=== PATIENT | male | born 1930 | race Caucasian/White ===

== ENCOUNTER 2016-10-07 11:27 | Emergency (ER) | payer MEDICARE, BC ==
[2016-10-07 12:09] VITALS: BP 115/73
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
--- NOTE | 2016-10-07 17:52 | CT ---
DATE OF SERVICE: 10/07/16 CLINICAL DATA: confusion UNENHANCED BRAIN CT: Multislice acquisition through the brain without IV contrast was performed. There is diffuse cerebral atrophy. There are periventricular lucencies bilaterally consistent with small vessel ischemic change. No masses or mass effect. No intracranial hemorrhage. No evidence of acute or subacute infarct. No significant changes from the prior exam. IMPRESSION: No acute intracranial abnormalities. [id number] [facility]
== END 2016-10-07 14:10 | disposition home or self-care (01) ==
LOC: LB.ED 11:27
DX: F01.51 Vascular dementia, unspecified severity, with behavioral disturbance (principal); I25.10 Atherosclerotic heart disease of native coronary artery without angina pectoris; I50.9 Heart failure, unspecified; E78.00 Pure hypercholesterolemia, unspecified; I25.2 Old myocardial infarction; E11.9 Type 2 diabetes mellitus without complications; E03.9 Hypothyroidism, unspecified; Z98.49 Cataract extraction status, unspecified eye; Z98.890 Other specified postprocedural states; Z79.4 Long term (current) use of insulin; Z79.899 Other long term (current) drug therapy; Z79.82 Long term (current) use of aspirin
CPT/HCPCS: 36415; 70450; 80053; 80162; 80177; 81001; 83036; 84443; 85025; 87086; 99283; 99285-25

== ENCOUNTER 2017-07-14 10:41 | Inpatient (IN) | payer MEDICARE, BC ==
[2017-07-14] MEDS ORDERED: Sodium Chloride 0.9% 1,000 ML IV SCH ×2 (12:00)
[2017-07-14] MEDS ORDERED: Insulin Aspart 100 Units/ML 3 ML Pen SUBCUT PRN (15:12)
--- NOTE | 2017-07-14 16:24 | EDM.PDOC ---
ED HPI GENERAL MEDICAL PROBLEM - General Chief Complaint: General Stated Complaint: FALL Time Seen by Provider: 07/14/17 10:41 Source of Information: Reports: Patient, EMS, Family History Limitations: Reports: No Limitations - History of Present Illness INITIAL COMMENTS - FREE TEXT/NARRATIVE: This is a 86yo M here for falling down and unable to get back up. His heard him fall and he was responsive but slow to respond. He denies any pain or discomfort and denies any shortness of breath, no chest pain, no lightheadedness or other concerns. felt that he may have had a low blood sugar as his glucose was 85 and she postponed his insulin until after he had eating but when EMS checked a finger stick it was 187. Patient alert but has dementia and states consistently that it is the year 2001. states that is his baseline. Onset: Sudden Improves with: Reports: None Worsens with: Reports: None Associated Symptoms: Reports: Syncope Generalized Pain Score (Numeric/FACES): 0 - Related Data Allergies Allergy/AdvReac Type Severity Reaction Status Date / Time No Known Allergies Allergy Verified 03/03/16 19:38 Home Meds: Home Meds Multivitamin [Multi-Vitamin Daily] 1 tab PO DAILY 08/10/14 [History] Ranitidine HCl 150 mg PO BEDTIME 08/10/14 [History] Levothyroxine 25 mcg PO ACBREAKFAST tablet 10/03/14 [Rx] Tamsulosin [Flomax] 0.4 mg PO PCBREAKFAST cap.er 10/03/14 [Rx] levETIRAcetam [Keppra] 750 mg PO BID tablet 10/03/14 [Rx] Cholecalciferol (Vitamin D3) [Vitamin D3] 2,000 unit PO DAILY cap 11/04/14 [Rx] Metoprolol Tartrate 25 mg PO BID #60 tablet 11/04/14 [Rx] Insulin Aspart [NovoLOG] 0 - 10 unit SUBCUT TIDAC PRN 12/10/14 [History] Aspirin [[place] Aspirin] 81 mg PO DAILY 10/07/16 [History] Digoxin 125 mcg PO DAILY 10/07/16 [History] Arformoterol [Brovana] 1 inh INH BID 07/14/17 [History] Budesonide [Pulmicort] 0.5 mg IH BID 07/14/17 [History] Furosemide 40 mg PO DAILY 07/14/17 [History] Ipratropium/Albuterol Sulfate [Iprat-Albut 0.5-3(2.5) mg/3 ml] 3 ml IH DAILY 05/19 [History] Potassium Chloride [Klor-Con 10] 0.5 tab PO DAILY 07/14/17 [History] Past Medical History HEENT History: Reports: Cataract, Hard of Hearing Cardiovascular History: Reports: Afib, CAD, Heart Failure, High Cholesterol, [place] Respiratory History: Reports: Pneumonia, Recurrent Gastrointestinal History: Reports: Other (See Below) Other Gastrointestinal History: Frequent bowel movements Genitourinary History: Reports: Acute Renal Failure, Renal Disease, UTI, Recurrent Musculoskeletal History: Reports: Back Pain, Chronic Neurological History: Reports: Seizure Other Neuro History: hx of 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 frequent skin cancers - Infectious Disease History Infectious Disease History: Reports: Chicken Pox - Past Surgical History HEENT Surgical History: Reports: Cataract Surgery GI Surgical History: Reports: Hernia Repair/Other Social & Family History - Family History Family Medical History: Noncontributory - Tobacco Use Smoking Status *Q: Never Smoker Second Hand Smoke Exposure: No - Caffeine Use Caffeine Use: Reports: None - Alcohol Use Days Per Week of Alcohol Use: 0 - Recreational Drug Use Recreational Drug Use: No - Living Situation & Occupation Living situation: Reports: Occupation: Retired ED ROS GENERAL - Review of Systems Review Of Systems: ROS reveals no pertinent complaints other than HPI. ED EXAM, GENERAL - Physical Exam Exam: See Below Exam Limited By: No Limitations General Appearance: Alert, WD/WN, No Apparent Distress Eye Exam: Bilateral Eye: EOMI, PERRL Ears: Normal External Exam Nose: Normal Inspection Throat/Mouth: Normal Inspection Head: Atraumatic, Normocephalic Neck: Normal Inspection Respiratory/Chest: No Respiratory Distress, Lungs Clear Cardiovascular: Normal Peripheral Pulses, Bradycardia Peripheral Pulses: 2+: Dorsalis Pedis (L), Dorsalis Pedis (R) GI/Abdominal: Normal Bowel Sounds Extremities: Normal Inspection Neurological: Alert, Memory Loss Recent Events Psychiatric: Normal Affect, Normal Mood Skin Exam: Warm, Dry, Intact Course - Vital Signs Last Recorded V/S: Last Vital Signs Temp 36.7 C 07/14/17 11:26 Pulse 32 L 07/14/17 11:26 Resp 12 07/14/17 11:26 BP 112/55 L 07/14/17 11:26 Pulse Ox 95 07/14/17 11:26 - Orders/Labs/Meds Orders: Active Orders 24 hr Category Date Time Status EKG Documentation Completion [RC] ASDIRECTED Care 07/14/17 11:01 Active Sodium Chloride 0.9% [Normal Saline] 1,000 ml Med 07/14/17 12:00 Active IV ASDIRECTED Sodium Chloride 0.9% [Normal Saline] 1,000 ml Med 07/14/17 12:00 Active IV ASDIRECTED Medication Orders Albuterol/Ipratropium (Duoneb 3.0-0.5 Mg/3 Ml) 3 ml INH DAILY [facility] Arformoterol Tartrate (Brovana) 15 mcg INH BID [facility] Aspirin (Halfprin) 81 mg PO DAILY [facility] Budesonide (Pulmicort) 0.5 mg INH BID [facility] Cholecalciferol (Vitamin D3) 2,000 unit PO DAILY [facility] Digoxin (Lanoxin) 125 mcg PO DAILY [facility] Furosemide (Lasix) 40 mg PO DAILY [facility] Sodium Chloride (Normal Saline) 1,000 mls @ 75 mls/hr IV ASDIRECTED [facility] Sodium Chloride (Normal Saline) 1,000 mls @ 999 mls/hr IV ASDIRECTED [facility] Last Admin: 07/14/17 11:29 Dose: 999 mls/hr Insulin Aspart (Novolog) 0 - 10 unit SUBCUT TIDAC PRN PRN Reason: Blood Glucose Levetiracetam (Keppra) 750 mg PO BID [facility] Levothyroxine Sodium (Levothyroxine) 25 mcg PO ACBREAKFAST [facility] Multivitamins/Minerals (Thera M Plus) 1 tab PO DAILY [facility] Potassium Chloride (Klor-Con 10) 10 meq PO DAILY [facility] Ranitidine HCl (Zantac) 150 mg PO BEDTIME [facility] Tamsulosin HCl (Flomax) 0.4 mg PO PCBREAKFAST [facility] Labs: Laboratory Tests 07/14/17 07/14/17 Range/Units 11:30 11:30 WBC 5.3 (4.0-11.0) K/uL RBC 3.79 L (4.50-6.50) M/uL Hgb 12.4 L (13.0-18.0) g/dL Hct 37.6 L (40.0-54.0) % MCV 99 H (76-96) fL MCH 32.7 H (27.0-32.0) pg MCHC 33.0 (31.0-35.0) g/dL RDW 13.4 (11.0-16.0) % Plt Count 173 (150-400) K/uL MPV 10.2 H (6.0-10.0) fL Neut % (Auto) 72.2 H (45.0-70.0) % Lymph % (Auto) 12.2 L (20.0-40.0) % Coffee % (Auto) 11.4 H (3.0-10.0) % Eos % (Auto) 3.4 (1.0-5.0) % Baso % (Auto) 0.8 H (0.0-0.5) % Neut # (Auto) 3.85 (2.00-7.50) K/uL Lymph # (Auto) 0.65 L (1.50-4.00) K/uL Coffee # (Auto) 0.61 (0.20-0.80) K/uL Eos # (Auto) 0.18 (0.04-0.40) K/uL Baso # (Auto) 0.04 (0.02-0.10) K/uL Sodium 142 (136-145) mmol/L Potassium 4.1 (3.5-5.1) mmol/L Chloride 103 (98-107) mmol/L Carbon Dioxide 36.7 H (21.0-32.0) mmol/L Anion Gap 6.4 (5.0-15.0) mmol/L BUN 30 H D (8-26) mg/dL Creatinine 2.30 H (0.70-1.30) mg/dL Est Cr Clr Drug Dosing 18.08 mL/min Estimated GFR (MDRD) 27 L (>60) MLS/MIN BUN/Creatinine Ratio 13.0 (6-25) Glucose 93 (74-100) mg/dL Calcium 8.5 (8.5-10.1) mg/dL Total Bilirubin 0.5 (0.0-1.0) mg/dL AST 17 (15-37) U/L ALT 15 (12-78) U/L Alkaline Phosphatase 89 (46-116) U/L Troponin I 0.030 (0.000-0.060) ng/mL B-Natriuretic Peptide 2205 H (0-450) pg/mL Total Protein 5.5 L (6.4-8.2) g/dL Albumin 2.5 L (3.4-5.0) g/dL Globulin 3.0 (2.2-4.2) g/dL Albumin/Globulin Ratio 0.8 (0.8-2.0) TSH, Ultra Sensitive 3.044 (0.358-3.740) uIU/mL Meds: Medications Generic Name Dose Route Start Last Admin Trade Name Freq PRN Reason Stop Dose Admin Albuterol/Ipratropium 3 ml 07/15/17 08:00 Duoneb 3.0-0.5 Mg/3 Ml INH DAILY [facility] Arformoterol Tartrate 15 mcg 07/14/17 20:00 Brovana INH BID [facility] Aspirin 81 mg 07/15/17 08:00 Halfprin PO DAILY [facility] Budesonide 0.5 mg 07/14/17 20:00 Pulmicort INH BID [facility] Cholecalciferol 2,000 unit 07/15/17 08:00 Vitamin D3 PO DAILY [facility] Digoxin 125 mcg 07/15/17 08:00 Lanoxin PO DAILY [facility] Furosemide 40 mg 07/15/17 08:00 Lasix PO DAILY [facility] Sodium Chloride 1,000 mls @ 75 mls/hr 07/14/17 12:00 Normal Saline IV ASDIRECTED [facility] Sodium Chloride 1,000 mls @ 999 mls/hr 07/14/17 12:00 07/14/17 11:29 Normal Saline IV 999 mls/hr ASDIRECTED [facility] Administration Insulin Aspart 0 - 10 unit 07/14/17 15:12 Novolog SUBCUT TIDAC PRN Blood Glucose Levetiracetam 750 mg 07/14/17 20:00 Keppra PO BID [facility] Levothyroxine Sodium 25 mcg 07/15/17 07:00 Levothyroxine PO ACBREAKFAST [facility] Multivitamins/Minerals 1 tab 07/15/17 08:00 Thera M Plus PO DAILY [facility] Potassium Chloride 10 meq 07/15/17 08:00 Klor-Con 10 PO DAILY [facility] Ranitidine HCl 150 mg 07/14/17 20:00 Zantac PO BEDTIME [facility] Tamsulosin HCl 0.4 mg 07/15/17 10:00 Flomax PO PCBREAKFAST [facility] Departure - Departure Time of Disposition: 12:00 Disposition: Admitted As Inpatient 67 Condition: Fair Clinical Impression: Bradycardia, Syncope and collapse Fall Qualifiers: Encounter type: initial encounter Qualified Code(s): W19.XXXA - Unspecified fall, initial encounter Anemia Qualifiers: Anemia type: unspecified type Qualified Code(s): D64.9 - Anemia, unspecified Chronic renal disease Qualifiers: Chronic kidney disease stage: stage 4 (severe) Qualified Code(s): N18.4 - Chronic kidney disease, stage 4 (severe) CHF (congestive heart failure) Qualifiers: Congestive heart failure type: unspecified Congestive heart failure chronicity : unspecified Qualified Code(s): I50.9 - Heart failure, unspecified - Discharge Information - Problem List Review Problem List Initiated/Reviewed/Updated: Yes - My Orders Last 24 Hours: My Active Orders 07/14/17 11:01 EKG Documentation Completion [RC] ASDIRECTED 07/14/17 12:00 Sodium Chloride 0.9% [Normal Saline] 1,000 ml IV ASDIRECTED Sodium Chloride 0.9% [Normal Saline] 1,000 ml IV ASDIRECTED - Assessment/Plan Last 24 Hours: My Active Orders 07/14/17 11:01 EKG Documentation Completion [RC] ASDIRECTED 07/14/17 12:00 Sodium Chloride 0.9% [Normal Saline] 1,000 ml IV ASDIRECTED Sodium Chloride 0.9% [Normal Saline] 1,000 ml IV ASDIRECTED Plan: Patient admitted for close monitoring. CHF- close monitoring and Echo to be done for f/u. CRF - gentle hydration and monitoring and follow up labs. Anemia - iron supplementation and management. Fall/Syncope - PT/OT evaluation and management. Bradycardia - hold Metoprolol Atrial fibrillation - monitor as we hold metoprolol for rate control. Deconditioning and generalized muscle weakness -- PT/OT eval.
[2017-07-14] MEDS ORDERED: LORazepam 2 MG/ML MDV ONE ×2 (20:37→23:12)
[2017-07-14] MEDS: levETIRAcetam 500 MG Tab PO SCH (20:45)
[2017-07-14] MEDS: Budesonide 0.5 MG/2 ML Neb Susp INH SCH (20:45)
[2017-07-14] MEDS: Arformoterol 15 MCG/2 ML Neb Soln INH SCH (20:45)
[2017-07-14] MEDS: LORazepam 2 MG/ML MDV IVPUSH PRN ×3 (20:50→23:20)
[2017-07-15] MEDS ORDERED: Non-Formulary Medication 1 Each (Multivitamin [Multi-Vitamin Daily] 1 TAB) PO SCH (08:00)
[2017-07-15] MEDS: Digoxin 125 MCG Tab PO SCH (08:14)
[2017-07-15] MEDS: Levothyroxine 25 MCG Tab PO SCH (08:14)
[2017-07-15] MEDS: Multivitamins with Iron/Calcium/Folic Acid/Minerals Tab PO SCH (08:14)
[2017-07-15] MEDS: Aspirin 81 MG Tab.EC PO SCH (08:14)
[2017-07-15] MEDS: Cholecalciferol (Vitamin D3) 2,000 Unit Cap PO SCH (08:14)
[2017-07-15] MEDS: Furosemide 40 MG Tab PO SCH (08:15)
[2017-07-15] MEDS: Potassium Chloride 10 MEQ Tab.ER PO SCH (08:15)
[2017-07-15] MEDS: levETIRAcetam 500 MG Tab PO SCH ×2 (08:15→19:57)
[2017-07-15] MEDS: Albuterol/Ipratropium 3.0-0.5 MG/3 ML Neb Soln INH SCH (08:16)
[2017-07-15] MEDS: Arformoterol 15 MCG/2 ML Neb Soln INH SCH ×2 (08:16→20:13)
[2017-07-15] MEDS: Budesonide 0.5 MG/2 ML Neb Susp INH SCH ×2 (08:17→20:05)
--- NOTE | 2017-07-15 10:40 | CR ---
DATE OF SERVICE: 07/14/17 CLINICAL DATA: unresponsive AP CHEST: The patient has taken a poor inspiration. Comparison is made to a prior exam dated 10/26/15. The heart size is within normal limits. The aorta is ectatic. There are mild atelectatic changes in both lower lungs. The lungs are otherwise clear. No pneumothorax. [id number] [facility]
[2017-07-15] MEDS: Tamsulosin 0.4 MG Cap.ER PO SCH (11:40)
[2017-07-15] MEDS: Sodium Chloride 0.45% 1,000 ML IV SCH (11:40)
--- NOTE | 2017-07-15 11:47 | PCM.PN ---
- General Info Date of Service: 07/15/17 Subjective Update: Patient is tired and arousable but sleepy. He was aggressive towards nursing staff last night and did receive 3 doses of 0.5mg ativan for agitation which did improve his symptoms. He denies any concerns today but appears tired. Patient denies any pain, no chest discomfort, no shortness of breath and no concerns of agitation or irritation. - Review of Systems General: Reports: Weakness HEENT: Reports: No Symptoms Pulmonary: Reports: No Symptoms Cardiovascular: Reports: No Symptoms Gastrointestinal: Reports: No Symptoms Musculoskeletal: Reports: No Symptoms Skin: Reports: No Symptoms Neurological: Reports: Difficulty Walking, Weakness - Patient Data Vitals - Most Recent: Last Vital Signs Temp 36.6 C 07/15/17 07:54 Pulse 64 07/15/17 08:14 Resp 16 07/15/17 07:54 BP 115/61 07/15/17 07:54 Pulse Ox 60 L 07/15/17 07:54 Weight - Most Recent: 54.431 kg I&O - Last 24 Hours: Intake & Output 07/14/17 07/15/17 07/15/17 22:59 06:59 14:59 Intake Total 75 Balance 75 Lab Results Last 24 Hours: Laboratory Results - last 24 hr 07/15/17 07/15/17 07/15/17 Range/Units 06:49 09:07 09:20 WBC 5.6 (4.0-11.0) K/uL RBC 3.69 L (4.50-6.50) M/uL Hgb 11.9 L (13.0-18.0) g/dL Hct 36.4 L (40.0-54.0) % MCV 99 H (76-96) fL MCH 32.2 H (27.0-32.0) pg MCHC 32.7 (31.0-35.0) g/dL RDW 13.3 (11.0-16.0) % Plt Count 162 (150-400) K/uL MPV 10.4 H (6.0-10.0) fL Neut % (Auto) 67.8 (45.0-70.0) % Lymph % (Auto) 17.7 L (20.0-40.0) % Gila % (Auto) 10.1 H (3.0-10.0) % Eos % (Auto) 3.9 (1.0-5.0) % Baso % (Auto) 0.5 (0.0-0.5) % Neut # (Auto) 3.82 (2.00-7.50) K/uL Lymph # (Auto) 1.00 L (1.50-4.00) K/uL Gila # (Auto) 0.57 (0.20-0.80) K/uL Eos # (Auto) 0.22 (0.04-0.40) K/uL Baso # (Auto) 0.03 (0.02-0.10) K/uL VBG pH (7.31-7.41) Sodium (136-145) mmol/L Potassium (3.5-5.1) mmol/L Chloride (98-107) mmol/L Carbon Dioxide (21.0-32.0) mmol/L Anion Gap (5.0-15.0) mmol/L BUN (8-26) mg/dL Creatinine (0.70-1.30) mg/dL Est Cr Clr Drug Dosing mL/min Estimated GFR (MDRD) (>60) MLS/MIN BUN/Creatinine Ratio (6-25) Glucose (74-100) mg/dL POC Glucose 167 H (74-110) mg/dL Lactic Acid (0.90-1.70) mmol/L Calcium (8.5-10.1) mg/dL Ammonia 16 (11-32) umol/L 07/15/17 07/15/17 07/15/17 Range/Units 09:20 09:20 09:20 WBC (4.0-11.0) K/uL RBC (4.50-6.50) M/uL Hgb (13.0-18.0) g/dL Hct (40.0-54.0) % MCV (76-96) fL MCH (27.0-32.0) pg MCHC (31.0-35.0) g/dL RDW (11.0-16.0) % Plt Count (150-400) K/uL MPV (6.0-10.0) fL Neut % (Auto) (45.0-70.0) % Lymph % (Auto) (20.0-40.0) % Gila % (Auto) (3.0-10.0) % Eos % (Auto) (1.0-5.0) % Baso % (Auto) (0.0-0.5) % Neut # (Auto) (2.00-7.50) K/uL Lymph # (Auto) (1.50-4.00) K/uL Gila # (Auto) (0.20-0.80) K/uL Eos # (Auto) (0.04-0.40) K/uL Baso # (Auto) (0.02-0.10) K/uL VBG pH 7.38 (7.31-7.41) Sodium 150 H (136-145) mmol/L Potassium 3.6 (3.5-5.1) mmol/L Chloride 109 H (98-107) mmol/L Carbon Dioxide 31.7 (21.0-32.0) mmol/L Anion Gap 12.9 (5.0-15.0) mmol/L BUN 29 H (8-26) mg/dL Creatinine 2.15 H (0.70-1.30) mg/dL Est Cr Clr Drug Dosing 19.34 mL/min Estimated GFR (MDRD) 29 L (>60) MLS/MIN BUN/Creatinine Ratio 13.5 (6-25) Glucose 176 H D (74-100) mg/dL POC Glucose (74-110) mg/dL Lactic Acid 1.44 (0.90-1.70) mmol/L Calcium 8.1 L (8.5-10.1) mg/dL Ammonia (11-32) umol/L Med Orders - Current: Current Medications Albuterol/Ipratropium (Duoneb 3.0-0.5 Mg/3 Ml) 3 ml INH DAILY [facility] Last Admin: 07/15/17 08:16 Dose: 3 ml Arformoterol Tartrate (Brovana) 15 mcg INH BID [facility] Last Admin: 07/15/17 08:16 Dose: 15 mcg Aspirin (Halfprin) 81 mg PO DAILY [facility] Last Admin: 07/15/17 08:14 Dose: 81 mg Budesonide (Pulmicort) 0.5 mg INH BID [facility] Last Admin: 07/15/17 08:17 Dose: 0.5 mg Cholecalciferol (Vitamin D3) 2,000 unit PO DAILY [facility] Last Admin: 07/15/17 08:14 Dose: 2,000 unit Digoxin (Lanoxin) 125 mcg PO DAILY [facility] Last Admin: 07/15/17 08:14 Dose: 125 mcg Furosemide (Lasix) 40 mg PO DAILY [facility] Last Admin: 07/15/17 08:15 Dose: 40 mg Sodium Chloride (Sodium Chloride 0.45%) 1,000 mls @ 75 mls/hr IV ASDIRECTED [facility] Last Admin: 07/15/17 11:40 Dose: 75 mls/hr Insulin Aspart (Novolog) 0 - 10 unit SUBCUT TIDAC PRN PRN Reason: Blood Glucose Levetiracetam (Keppra) 750 mg PO BID [facility] Last Admin: 07/15/17 08:15 Dose: 750 mg Levothyroxine Sodium (Levothyroxine) 25 mcg PO ACBREAKFAST [facility] Last Admin: 07/15/17 08:14 Dose: 25 mcg Lorazepam (Ativan) 0.5 mg IVPUSH Q1H PRN PRN Reason: Agitation Last Admin: 07/14/17 23:20 Dose: 0.5 mg Multivitamins/Minerals (Thera M Plus) 1 tab PO DAILY [facility] Last Admin: 07/15/17 08:14 Dose: 1 tab Potassium Chloride (Klor-Con 10) 10 meq PO DAILY [facility] Last Admin: 07/15/17 08:15 Dose: 10 meq Ranitidine HCl (Zantac) 150 mg PO BEDTIME [facility] Last Admin: 07/14/17 20:45 Dose: 150 mg Tamsulosin HCl (Flomax) 0.4 mg PO PCBREAKFAST [facility] Last Admin: 07/15/17 11:40 Dose: 0.4 mg Discontinued Medications Sodium Chloride (Normal Saline) 1,000 mls @ 75 mls/hr IV ASDIRECTED [facility] Last Admin: 07/14/17 17:55 Dose: 75 mls/hr Sodium Chloride (Normal Saline) 1,000 mls @ 999 mls/hr IV ASDIRECTED [facility] Last Admin: 07/14/17 11:29 Dose: 999 mls/hr Lorazepam (Ativan) Confirm Administered Dose 2 mg .ROUTE .STK-MED ONE Stop: 07/14/17 20:38 Last Admin: 07/15/17 00:46 Dose: Not Given Lorazepam (Ativan) Confirm Administered Dose 2 mg .ROUTE .STK-MED ONE Stop: 07/14/17 23:13 Last Admin: 07/15/17 00:47 Dose: Not Given - Exam General: Alert, Cooperative HEENT: Pupils Equal, Pupils Reactive Neck: Supple Lungs: Clear to Auscultation, Normal Respiratory Effort Cardiovascular: Regular Rate, Regular Rhythm GI/Abdominal Exam: Normal Bowel Sounds, Soft, Non-Tender Extremities: Normal Inspection Peripheral Pulses: 2+: Dorsalis Pedis (L), Dorsalis Pedis (R) Skin: Warm, Dry, Intact Neurological: No New Focal Deficit Psy/Mental Status: Alert, Normal Affect, Normal Mood - Problem List & Annotations (1) Anemia SNOMED Code(s): 639707580 Code(s): D64.9 - ANEMIA, UNSPECIFIED Status: Chronic Current Visit: Yes Qualifiers: Anemia type: unspecified type Qualified Code(s): D64.9 - Anemia, unspecified (2) Bradycardia SNOMED Code(s): 34998693 Code(s): R00.1 - BRADYCARDIA, UNSPECIFIED Status: Resolved Priority: High Current Visit: Yes (3) Chronic renal disease SNOMED Code(s): 259295196 Code(s): N18.9 - CHRONIC KIDNEY DISEASE, UNSPECIFIED Status: Chronic Priority: High Current Visit: Yes Qualifiers: Chronic kidney disease stage: stage 4 (severe) Qualified Code(s): N18.4 - Chronic kidney disease, stage 4 (severe) (4) Fall SNOMED Code(s): 4041603 Code(s): W19.XXXA - UNSPECIFIED FALL, INITIAL ENCOUNTER Status: Acute Priority: High Current Visit: Yes Qualifiers: Encounter type: initial encounter Qualified Code(s): W19.XXXA - Unspecified fall, initial encounter (5) Syncope and collapse SNOMED Code(s): 567834533 Code(s): R55 - SYNCOPE AND COLLAPSE Status: Acute Priority: High Current Visit: Yes (6) CHF (congestive heart failure) SNOMED Code(s): 80586299 Code(s): I50.9 - HEART FAILURE, UNSPECIFIED Status: Chronic Priority: High Current Visit: Yes Qualifiers: Qualified Code(s): I50.9 - Heart failure, unspecified Annotation/Comment:: 09/30/2014 Doing well (7) Dementia SNOMED Code(s): 55264118 Code(s): F03.90 - UNSPECIFIED DEMENTIA WITHOUT BEHAVIORAL DISTURBANCE Status: Chronic Priority: High Current Visit: Yes Qualifiers: Dementia type: vascular dementia Dementia behavioral disturbance: with behavioral disturbance Qualified Code(s): 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 Syncopal episode, 2. Confusion, 3. Dehydration, 4. Hyperglycemia, 5. Hyperkalemia, 6. Kidney failure, 7. Weakness (10) Confusion SNOMED Code(s): 310401973 Code(s): R41.0 - DISORIENTATION, UNSPECIFIED Status: Suspected Priority: High Current Visit: Yes Onset Date: 10/19/15 Annotation/Comment:: 10/26/15 - 1. Syncopal episode, 2. Confusion, 3. Dehydration, 4. Hyperglycemia, 5. Hyperkalemia, 6. Kidney failure, 7. Weakness - Problem List Review Problem List Initiated/Reviewed/Updated: Yes - My Orders Last 24 Hours: My Active Orders 07/14/17 15:12 Insulin Aspart [NovoLOG] 0 - 10 unit SUBCUT TIDAC PRN 07/14/17 16:29 OT Evaluation and Treatment [CONS] Routine PT Evaluation and Treatment [CONS] Routine 07/14/17 20:00 Arformoterol [Brovana] 15 mcg INH BID Budesonide [Pulmicort] 0.5 mg INH BID Ranitidine [Zantac] 150 mg PO BEDTIME levETIRAcetam [Keppra] 750 mg PO BID 07/14/17 20:30 LORazepam [Ativan] 0.5 mg IVPUSH Q1H PRN 07/15/17 07:00 Levothyroxine 25 mcg PO ACBREAKFAST 07/15/17 08:00 Blood Glucose Check, Bedside [RC] 08,12,17 Albuterol/Ipratropium [DuoNeb 3.0-0.5 MG/3 ML] 3 ml INH DAILY Aspirin [Halfprin] 81 mg PO DAILY Cholecalciferol (Vitamin D3) [Vitamin D3] 2,000 unit PO DAILY Digoxin [Lanoxin] 125 mcg PO DAILY Furosemide [Lasix] 40 mg PO DAILY Multivitamins w-Iron/Ca/FA/Min [Thera M Plus] 1 tab PO DAILY Potassium Chloride [Klor-Con 10] 10 meq PO DAILY 07/15/17 10:00 Tamsulosin [Flomax] 0.4 mg PO PCBREAKFAST 07/15/17 11:15 Sodium Chloride 0.45% 1,000 ml IV ASDIRECTED 07/15/17 Lunch Consistent Carbohydrate Diet [DIET] Heart Healthy Diet [DIET] 07/16/17 08:00 BASIC METABOLIC PANEL,BMP [CHEM] DAILY CBC WITH AUTO DIFF [HEME] DAILY 07/17/17 08:00 BASIC METABOLIC PANEL,BMP [CHEM] DAILY CBC WITH AUTO DIFF [HEME] DAILY 07/18/17 08:00 BASIC METABOLIC PANEL,BMP [CHEM] DAILY CBC WITH AUTO DIFF [HEME] DAILY - Plan Plan:: Patient's symptomatic bradycardia does appear resolved. He remains weak and we will follow up with PT/OT for strength and safety when walking and if possible for home or other placement. We will continue to monitor CHF, Renal dysfunction and Anemia. He presents today with hyernatremia - we will continue gentle hydration recheck Na level in am. Echo to be done.
[2017-07-15] MEDS ORDERED: Nystatin Topical Powder 15 GM Bottle ONE (12:12)
[2017-07-15] MEDS: Nystatin Topical Powder 15 GM Bottle TOP SCH ×3 (12:25→19:58)
[2017-07-15] MEDS: QUEtiapine 25 MG Tab PO SCH (19:57)
[2017-07-16] MEDS: Sodium Chloride 0.45% 1,000 ML IV SCH ×2 (00:48→14:10)
[2017-07-16] MEDS: Levothyroxine 25 MCG Tab PO SCH (06:26)
[2017-07-16] MEDS: Albuterol/Ipratropium 3.0-0.5 MG/3 ML Neb Soln INH SCH (07:48)
[2017-07-16] MEDS: Furosemide 40 MG Tab PO SCH (07:48)
[2017-07-16] MEDS: Potassium Chloride 10 MEQ Tab.ER PO SCH (07:49)
[2017-07-16] MEDS: Aspirin 81 MG Tab.EC PO SCH (07:49)
[2017-07-16] MEDS: Cholecalciferol (Vitamin D3) 2,000 Unit Cap PO SCH (07:50)
[2017-07-16] MEDS: levETIRAcetam 500 MG Tab PO SCH ×2 (07:50→19:53)
[2017-07-16] MEDS: Multivitamins with Iron/Calcium/Folic Acid/Minerals Tab PO SCH (07:52)
[2017-07-16] MEDS: Budesonide 0.5 MG/2 ML Neb Susp INH SCH ×2 (07:52→19:55)
[2017-07-16] MEDS: Arformoterol 15 MCG/2 ML Neb Soln INH SCH ×2 (08:35→21:00)
[2017-07-16] MEDS: Tamsulosin 0.4 MG Cap.ER PO SCH (10:00)
[2017-07-16] MEDS: Digoxin 125 MCG Tab PO SCH (10:37)
[2017-07-16] MEDS: Nystatin Topical Powder 15 GM Bottle TOP SCH ×4 (10:38→19:53)
--- NOTE | 2017-07-16 11:38 | PCM.PN ---
- General Info Date of Service: 07/16/17 Subjective Update: This is a 86yo M resting in bed. He states he feels fine and denies any concerns but appears weak and unstable when trying to move or get out of bed. His vitals have been stable and has not had another episode of bradycardia. He does appear to have improved slightly since the ER. There continue to be concerns of agitation at night. It does appear that the Seroquel did help him last night with improved agitation. - Review of Systems General: Reports: Weakness HEENT: Reports: No Symptoms Pulmonary: Reports: No Symptoms Cardiovascular: Reports: No Symptoms Gastrointestinal: Reports: No Symptoms Genitourinary: Reports: No Symptoms Musculoskeletal: Reports: No Symptoms Neurological: Reports: Difficulty Walking, Weakness Psychiatric: Reports: No Symptoms - Patient Data Vitals - Most Recent: Last Vital Signs Temp 36.7 C 07/15/17 20:00 Pulse 60 07/16/17 10:37 Resp 14 07/16/17 03:19 BP 106/47 L 07/16/17 03:19 Pulse Ox 94 L 07/16/17 03:19 Weight - Most Recent: 60.781 kg I&O - Last 24 Hours: Intake & Output 07/15/17 07/16/17 07/16/17 22:59 06:59 14:59 Intake Total 685 900 Balance 685 900 Lab Results Last 24 Hours: Laboratory Results - last 24 hr 07/15/17 07/16/17 07/16/17 Range/Units 11:23 07:30 07:30 WBC 7.2 D (4.0-11.0) K/uL RBC 3.66 L (4.50-6.50) M/uL Hgb 11.9 L (13.0-18.0) g/dL Hct 36.0 L (40.0-54.0) % MCV 98 H (76-96) fL MCH 32.5 H (27.0-32.0) pg MCHC 33.1 (31.0-35.0) g/dL RDW 13.4 (11.0-16.0) % Plt Count 167 (150-400) K/uL MPV 10.2 H (6.0-10.0) fL Neut % (Auto) 80.4 H (45.0-70.0) % Lymph % (Auto) 7.8 L (20.0-40.0) % [place] % (Auto) 9.6 (3.0-10.0) % Eos % (Auto) 1.8 (1.0-5.0) % Baso % (Auto) 0.4 (0.0-0.5) % Neut # (Auto) 5.81 (2.00-7.50) K/uL Lymph # (Auto) 0.56 L (1.50-4.00) K/uL [place] # (Auto) 0.69 (0.20-0.80) K/uL Eos # (Auto) 0.13 (0.04-0.40) K/uL Baso # (Auto) 0.03 (0.02-0.10) K/uL Sodium 147 H (136-145) mmol/L Potassium 4.3 (3.5-5.1) mmol/L Chloride 109 H (98-107) mmol/L Carbon Dioxide 31.8 (21.0-32.0) mmol/L Anion Gap 10.5 (5.0-15.0) mmol/L BUN 28 H (8-26) mg/dL Creatinine 2.23 H (0.70-1.30) mg/dL Est Cr Clr Drug Dosing 18.70 mL/min Estimated GFR (MDRD) 28 L (>60) MLS/MIN BUN/Creatinine Ratio 12.6 (6-25) Glucose 134 H (74-100) mg/dL POC Glucose 195 H (74-110) mg/dL Calcium 8.0 L (8.5-10.1) mg/dL Digoxin (0.5-2.00) ng/mL 07/16/17 Range/Units 08:16 WBC (4.0-11.0) K/uL RBC (4.50-6.50) M/uL Hgb (13.0-18.0) g/dL Hct (40.0-54.0) % MCV (76-96) fL MCH (27.0-32.0) pg MCHC (31.0-35.0) g/dL RDW (11.0-16.0) % Plt Count (150-400) K/uL MPV (6.0-10.0) fL Neut % (Auto) (45.0-70.0) % Lymph % (Auto) (20.0-40.0) % [place] % (Auto) (3.0-10.0) % Eos % (Auto) (1.0-5.0) % Baso % (Auto) (0.0-0.5) % Neut # (Auto) (2.00-7.50) K/uL Lymph # (Auto) (1.50-4.00) K/uL [place] # (Auto) (0.20-0.80) K/uL Eos # (Auto) (0.04-0.40) K/uL Baso # (Auto) (0.02-0.10) K/uL Sodium (136-145) mmol/L Potassium (3.5-5.1) mmol/L Chloride (98-107) mmol/L Carbon Dioxide (21.0-32.0) mmol/L Anion Gap (5.0-15.0) mmol/L BUN (8-26) mg/dL Creatinine (0.70-1.30) mg/dL Est Cr Clr Drug Dosing mL/min Estimated GFR (MDRD) (>60) MLS/MIN BUN/Creatinine Ratio (6-25) Glucose (74-100) mg/dL POC Glucose (74-110) mg/dL Calcium (8.5-10.1) mg/dL Digoxin 1.8 (0.5-2.00) ng/mL Med Orders - Current: Current Medications Albuterol/Ipratropium (Duoneb 3.0-0.5 Mg/3 Ml) 3 ml INH DAILY [facility] Last Admin: 07/16/17 07:48 Dose: 3 ml Arformoterol Tartrate (Brovana) 15 mcg INH BID [facility] Last Admin: 07/16/17 08:35 Dose: 15 mcg Aspirin (Halfprin) 81 mg PO DAILY [facility] Last Admin: 07/16/17 07:49 Dose: 81 mg Budesonide (Pulmicort) 0.5 mg INH BID [facility] Last Admin: 07/16/17 07:52 Dose: 0.5 mg Cholecalciferol (Vitamin D3) 2,000 unit PO DAILY [facility] Last Admin: 07/16/17 07:50 Dose: 2,000 unit Digoxin (Lanoxin) 125 mcg PO DAILY [facility] Last Admin: 07/16/17 10:37 Dose: 125 mcg Furosemide (Lasix) 40 mg PO DAILY [facility] Last Admin: 07/16/17 07:48 Dose: 40 mg Sodium Chloride (Sodium Chloride 0.45%) 1,000 mls @ 75 mls/hr IV ASDIRECTED [facility] Last Admin: 07/16/17 00:48 Dose: 75 mls/hr Insulin Aspart (Novolog) 0 unit SUBCUT WITHMEALSANDBED [facility] PRN Reason: Protocol Levetiracetam (Keppra) 750 mg PO BID [facility] Last Admin: 07/16/17 07:50 Dose: 750 mg Levothyroxine Sodium (Levothyroxine) 25 mcg PO ACBREAKFAST [facility] Last Admin: 07/16/17 06:26 Dose: 25 mcg Multivitamins/Minerals (Thera M Plus) 1 tab PO DAILY [facility] Last Admin: 07/16/17 07:52 Dose: 1 tab Nystatin (Nystop) 0 gm TOP QID [facility] Last Admin: 07/16/17 10:38 Dose: 1 applic Potassium Chloride (Klor-Con 10) 10 meq PO DAILY [facility] Last Admin: 07/16/17 07:49 Dose: 10 meq Quetiapine Fumarate (Seroquel) 25 mg PO BEDTIME [facility] Last Admin: 07/15/17 19:57 Dose: 25 mg Ranitidine HCl (Zantac) 150 mg PO BEDTIME [facility] Last Admin: 07/15/17 19:57 Dose: 150 mg Tamsulosin HCl (Flomax) 0.4 mg PO PCBREAKFAST [facility] Last Admin: 07/16/17 10:00 Dose: 0.4 mg Discontinued Medications Sodium Chloride (Normal Saline) 1,000 mls @ 75 mls/hr IV ASDIRECTED [facility] Last Admin: 07/14/17 17:55 Dose: 75 mls/hr Sodium Chloride (Normal Saline) 1,000 mls @ 999 mls/hr IV ASDIRECTED [facility] Last Admin: 07/14/17 11:29 Dose: 999 mls/hr Insulin Aspart (Novolog) 0 - 10 unit SUBCUT TIDAC PRN PRN Reason: Blood Glucose Lorazepam (Ativan) Confirm Administered Dose 2 mg .ROUTE .[facility]-MED ONE Stop: 07/14/17 20:38 Last Admin: 07/15/17 00:46 Dose: Not Given Lorazepam (Ativan) Confirm Administered Dose 2 mg .ROUTE .STK-MED ONE Stop: 07/14/17 23:13 Last Admin: 07/15/17 00:47 Dose: Not Given Lorazepam (Ativan) 0.5 mg IVPUSH Q1H PRN PRN Reason: Agitation Last Admin: 07/14/17 23:20 Dose: 0.5 mg Nystatin (Nystop) Confirm Administered Dose 15 gm .ROUTE .STK-MED ONE Stop: 07/15/17 12:13 Last Admin: 07/15/17 12:25 Dose: Not Given - Exam General: Alert, Cooperative HEENT: Pupils Equal, Pupils Reactive, EOMI Neck: Supple Lungs: Clear to Auscultation, Normal Respiratory Effort Cardiovascular: Regular Rate, Regular Rhythm GI/Abdominal Exam: Normal Bowel Sounds Back Exam: Normal Inspection Extremities: Normal Inspection, Normal Range of Motion Peripheral Pulses: 2+: Dorsalis Pedis (L), Dorsalis Pedis (R) Skin: Warm, Dry, Intact Psy/Mental Status: Alert, Normal Affect, Normal Mood - Problem List & Annotations (1) Anemia SNOMED Code(s): 284734148 Code(s): D64.9 - ANEMIA, UNSPECIFIED Status: Chronic Current Visit: Yes Qualifiers: Anemia type: unspecified type Qualified Code(s): D64.9 - Anemia, unspecified (2) Bradycardia SNOMED Code(s): 79072586 Code(s): R00.1 - BRADYCARDIA, UNSPECIFIED Status: Resolved Priority: High Current Visit: Yes (3) Chronic renal disease SNOMED Code(s): 976026802 Code(s): N18.9 - CHRONIC KIDNEY DISEASE, UNSPECIFIED Status: Chronic Priority: High Current Visit: Yes Qualifiers: Chronic kidney disease stage: stage 4 (severe) Qualified Code(s): N18.4 - Chronic kidney disease, stage 4 (severe) (4) Fall SNOMED Code(s): 7488284 Code(s): W19.XXXA - UNSPECIFIED FALL, INITIAL ENCOUNTER Status: Acute Priority: High Current Visit: Yes Qualifiers: Encounter type: initial encounter Qualified Code(s): W19.XXXA - Unspecified fall, initial encounter (5) Syncope and collapse SNOMED Code(s): 210319486 Code(s): R55 - SYNCOPE AND COLLAPSE Status: Acute Priority: High Current Visit: Yes (6) CHF (congestive heart failure) SNOMED Code(s): 99463783 Code(s): I50.9 - HEART FAILURE, UNSPECIFIED Status: Chronic Priority: High Current Visit: Yes Annotation/Comment:: 09/30/2014 Doing well (7) Dementia SNOMED Code(s): 40206226 Code(s): F03.90 - UNSPECIFIED DEMENTIA WITHOUT BEHAVIORAL DISTURBANCE Status: Chronic Priority: High Current Visit: Yes Qualifiers: Dementia type: vascular dementia Dementia behavioral disturbance: with behavioral disturbance Qualified Code(s): 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 Syncopal episode, 2. Confusion, 3. Dehydration, 4. Hyperglycemia, 5. Hyperkalemia, 6. Kidney failure, 7. Weakness (10) Confusion SNOMED Code(s): 950307536 Code(s): R41.0 - DISORIENTATION, UNSPECIFIED Status: Suspected Priority: [facility] Current Visit: Yes Onset Date: 10/19/15 Annotation/Comment:: 10/26/15 - 1. Syncopal episode, 2. Confusion, 3. Dehydration, 4. Hyperglycemia, 5. Hyperkalemia, 6. Kidney failure, 7. Weakness - Problem List Review Problem List Initiated/Reviewed/Updated: Yes - My Orders Last 24 Hours: My Active Orders 07/15/17 11:15 Sodium Chloride 0.45% 1,000 ml IV ASDIRECTED 07/15/17 12:08 Nystatin [Nystop] 0 gm TOP QID 07/15/17 20:00 QUEtiapine [SEROquel] 25 mg PO BEDTIME 07/15/17 Lunch Consistent Carbohydrate Diet [DIET] Heart Healthy Diet [DIET] 07/16/17 07:40 KEPPRA [REF] Routine 07/16/17 10:00 Echo Comp wo Cont [US] Routine 07/16/17 12:00 Insulin Aspart [NovoLOG] See Protocol SUBCUT WITHMEALSANDBED 07/17/17 08:00 BASIC METABOLIC PANEL,BMP [CHEM] DAILY CBC WITH AUTO DIFF [HEME] DAILY 07/18/17 08:00 BASIC METABOLIC PANEL,BMP [CHEM] DAILY CBC WITH AUTO DIFF [HEME] DAILY - Plan Plan:: Patient's symptomatic bradycardia does appear resolved. He remains weak and we will follow up with PT/OT for strength and safety when walking and if possible for home or other placement. We will continue to monitor CHF, Renal dysfunction and Anemia. He presents today with hypernatremia - we will continue gentle hydration recheck Na level in am. Echo to be done. 07/16/17 Patient stable at this time. We will continue f/u with PT/OT. AM labs stable. Continue monitoring hypernatremia and renal dysfunction. F/u labs in am. F/u ECHO results. Consider swing bed in AM.
[2017-07-16] MEDS: Insulin Aspart 100 Units/ML 3 ML Pen SUBCUT SCH ×3 (12:21→20:07)
[2017-07-16] MEDS: QUEtiapine 25 MG Tab PO SCH (19:54)
[2017-07-16] MEDS ORDERED: Acetaminophen 325 MG Tab PO PRN (20:47)
[2017-07-16] MEDS ORDERED: Acetaminophen 325 MG Tab ONE (20:57)
[2017-07-17] MEDS: Levothyroxine 25 MCG Tab PO SCH (06:47)
[2017-07-17] MEDS: Budesonide 0.5 MG/2 ML Neb Susp INH SCH (07:30)
[2017-07-17 07:35] VITALS: BP 120/48
[2017-07-17] MEDS: Arformoterol 15 MCG/2 ML Neb Soln INH SCH (07:41)
[2017-07-17] MEDS: Multivitamins with Iron/Calcium/Folic Acid/Minerals Tab PO SCH (07:43)
[2017-07-17] MEDS: Cholecalciferol (Vitamin D3) 2,000 Unit Cap PO SCH (07:43)
[2017-07-17] MEDS: Potassium Chloride 10 MEQ Tab.ER PO SCH (07:43)
[2017-07-17] MEDS: Aspirin 81 MG Tab.EC PO SCH (07:44)
[2017-07-17] MEDS: Furosemide 40 MG Tab PO SCH (07:44)
[2017-07-17] MEDS: levETIRAcetam 500 MG Tab PO SCH (07:44)
[2017-07-17] MEDS: Insulin Aspart 100 Units/ML 3 ML Pen SUBCUT SCH (07:50)
[2017-07-17] MEDS: Nystatin Topical Powder 15 GM Bottle TOP SCH (07:51)
[2017-07-17] MEDS: Albuterol/Ipratropium 3.0-0.5 MG/3 ML Neb Soln INH SCH (07:53)
[2017-07-17] MEDS: Digoxin 125 MCG Tab PO SCH (08:59)
--- NOTE | 2017-07-17 09:06 | PCM.DCSUM1 ---
Discharge Summary - Discharge Data Discharge Date: 07/17/17 Discharge Disposition: DC/Tfer W/I Hosp To Swing [facility] Condition: Stable - Discharge Diagnosis/Problem(s) (1) Anemia SNOMED Code(s): 253286951 ICD Code: D64.9 - ANEMIA, UNSPECIFIED Status: Chronic Current Visit: Yes Qualifiers: Anemia type: unspecified type Qualified Code(s): D64.9 - Anemia, unspecified (2) Bradycardia SNOMED Code(s): 76983175 ICD Code: R00.1 - BRADYCARDIA, UNSPECIFIED Status: Resolved Priority: High Current Visit: Yes (3) Chronic renal disease SNOMED Code(s): 792577568 ICD Code: N18.9 - CHRONIC KIDNEY DISEASE, UNSPECIFIED Status: Chronic Priority: High Current Visit: Yes Qualifiers: Chronic kidney disease stage: stage 4 (severe) Qualified Code(s): N18.4 - Chronic kidney disease, stage 4 (severe) (4) Fall SNOMED Code(s): 3562301 ICD Code: W19.XXXA - UNSPECIFIED FALL, INITIAL ENCOUNTER Status: Acute Priority: High Current Visit: Yes Qualifiers: Encounter type: initial encounter Qualified Code(s): W19.XXXA - Unspecified fall, initial encounter (5) Syncope and collapse SNOMED Code(s): 080224764 ICD Code: R55 - SYNCOPE AND COLLAPSE Status: Acute Priority: High Current Visit: Yes (6) CHF (congestive heart failure) SNOMED Code(s): 32323941 ICD Code: I50.9 - HEART FAILURE, UNSPECIFIED Status: Chronic Priority: High Current Visit: Yes Problem Details: 09/30/2014 Doing well (7) Dementia SNOMED Code(s): 35465796 ICD Code: F03.90 - UNSPECIFIED DEMENTIA WITHOUT BEHAVIORAL DISTURBANCE Status: Chronic Priority: High Current Visit: Yes Qualifiers: Dementia type: vascular dementia Dementia behavioral disturbance: with behavioral disturbance Qualified Code(s): F01.51 - Vascular dementia with behavioral disturbance (8) Atrial fibrillation SNOMED Code(s): 63526555 ICD Code: I48.91 - UNSPECIFIED ATRIAL FIBRILLATION Status: Chronic Priority: High Current Visit: Yes Problem Details: chronich atrial fib Qualifiers: Atrial fibrillation type: permanent Qualified Code(s): I48.2 - Chronic atrial fibrillation (9) Weakness SNOMED Code(s): 65296177 ICD Code: R53.1 - WEAKNESS Status: Chronic Priority: High Current Visit : Yes Onset Date: 10/26/15 Problem Details: 10/26/15 - 1. Syncopal episode, 2. Confusion, 3. Dehydration, 4. Hyperglycemia, 5. Hyperkalemia, 6. Kidney failure, 7. Weakness (10) Confusion SNOMED Code(s): 908656115 ICD Code: R41.0 - DISORIENTATION, UNSPECIFIED Status: Suspected Priority : High Current Visit: Yes Onset Date: 10/19/15 Problem Details: 10/26/15 - 1. Syncopal episode, 2. Confusion, 3. Dehydration, 4. Hyperglycemia, 5. Hyperkalemia, 6. Kidney failure, 7. Weakness - Patient Summary/Data Consults: Consultations 07/14/17 16:29 OT Evaluation and Treatment [CONS] Routine Please Evaluate and Treat. OT Reason for Consult: ADL's This query below is only for informational purposes and is not editable. Admission Diagnosis/Problem: Fall PT Evaluation and Treatment [CONS] Routine Please Evaluate and Treat. PT Reason for Consult: Ambulation This query below is only for informational purposes and is not editable. Admission Diagnosis/Problem: Fall - Discharge Plan Home Medications: Home Meds Multivitamin [Multi-Vitamin Daily] 1 tab PO DAILY 08/10/14 [History] Ranitidine HCl 150 mg PO BEDTIME 08/10/14 [History] Levothyroxine 25 mcg PO ACBREAKFAST tablet 10/03/14 [Rx] Tamsulosin [Flomax] 0.4 mg PO PCBREAKFAST cap.er 10/03/14 [Rx] levETIRAcetam [Keppra] 750 mg PO BID tablet 10/03/14 [Rx] Cholecalciferol (Vitamin D3) [Vitamin D3] 2,000 unit PO DAILY cap 11/04/14 [Rx] Insulin Aspart [NovoLOG] 0 - 10 unit SUBCUT TIDAC PRN 12/10/14 [History] Aspirin [[place] Aspirin] 81 mg PO DAILY 10/07/16 [History] Digoxin 125 mcg PO DAILY 10/07/16 [History] Arformoterol [Brovana] 1 inh INH BID 07/14/17 [History] Budesonide [Pulmicort] 0.5 mg IH BID 07/14/17 [History] Furosemide 40 mg PO DAILY 07/14/17 [History] Ipratropium/Albuterol Sulfate [Iprat-Albut 0.5-3(2.5) mg/3 ml] 3 ml IH DAILY 05/19 [History] Potassium Chloride [Klor-Con 10] 0.5 tab PO DAILY 07/14/17 [History] Acetaminophen [Tylenol] 325 mg PO Q4H PRN tablet 07/17/17 [Rx] Insulin Aspart [NovoLOG] 0 unit SUBCUT WITHMEALSANDBED pen 07/17/17 [Rx] Nystatin [Nystop] 0 gm TOP QID bottle 07/17/17 [Rx] QUEtiapine [SEROquel] 25 mg PO BEDTIME tablet 07/17/17 [Rx] Forms: ED Department Discharge Referrals: PCP,None [Primary Care Provider] - - Discharge Summary/Plan Comment Discharge Summary/Plan Comment: Patient to be discharged to swing bed for further management of deconditioning, muscle weakness, and debility. We will monitor for any recurrent bradycardia or syncopal episodes. We will also monitor renal dysfunction and anemia. Metoprolol discontinued as pulse has remained in the 50-60's. His prior baseline has been around 40-50's. Patient is asymptomatic except for the generalized weakness. - General Info Date of Service: 07/17/17 Subjective Update: Patient states he feels fine. He is eating and denies any health concerns. He is a little slow to respond and did sleep well last night. Patient continues to have weakness that is generalized. - Review of Systems General: Reports: Weakness Pulmonary: Reports: No Symptoms Cardiovascular: Reports: No Symptoms Gastrointestinal: Reports: No Symptoms Genitourinary: Reports: No Symptoms Musculoskeletal: Reports: No Symptoms - Patient Data Vitals - Most Recent: Last Vital Signs Temp 37.2 C 07/17/17 07:32 Pulse 54 L 07/17/17 07:32 Resp 18 07/17/17 07:32 BP 120/48 L 07/17/17 07:32 Pulse Ox 93 L 07/17/17 07:32 Weight - Most Recent: 60.781 kg I&O - Last 24 hours: Intake & Output 07/16/17 07/17/17 07/17/17 22:59 06:59 14:59 Intake Total 1060 820 Output Total 1050 400 Balance 10 420 Lab Results - Last 24 hrs: Laboratory Results - last 24 hr 07/16/17 07/16/17 07/16/17 Range/Units 08:16 11:04 15:33 WBC (4.0-11.0) K/uL RBC (4.50-6.50) M/uL Hgb (13.0-18.0) g/dL Hct (40.0-54.0) % MCV (76-96) fL MCH (27.0-32.0) pg MCHC (31.0-35.0) g/dL RDW (11.0-16.0) % Plt Count (150-400) K/uL MPV (6.0-10.0) fL Neut % (Auto) (45.0-70.0) % Lymph % (Auto) (20.0-40.0) % [place] % (Auto) (3.0-10.0) % Eos % (Auto) (1.0-5.0) % Baso % (Auto) (0.0-0.5) % Neut # (Auto) (2.00-7.50) K/uL Lymph # (Auto) (1.50-4.00) K/uL [place] # (Auto) (0.20-0.80) K/uL Eos # (Auto) (0.04-0.40) K/uL Baso # (Auto) (0.02-0.10) K/uL Sodium (136-145) mmol/L Potassium (3.5-5.1) mmol/L Chloride (98-107) mmol/L Carbon Dioxide (21.0-32.0) mmol/L Anion Gap (5.0-15.0) mmol/L BUN (8-26) mg/dL Creatinine (0.70-1.30) mg/dL Est Cr Clr Drug Dosing mL/min Estimated GFR (MDRD) (>60) MLS/MIN BUN/Creatinine Ratio (6-25) Glucose (74-100) mg/dL POC Glucose 154 H 129 H (74-110) mg/dL Calcium (8.5-10.1) mg/dL Digoxin 1.8 (0.5-2.00) ng/mL 07/16/17 07/17/17 07/17/17 Range/Units 19:06 07:05 07:05 WBC 5.7 D (4.0-11.0) K/uL RBC 3.40 L (4.50-6.50) M/uL Hgb 11.0 L (13.0-18.0) g/dL Hct 33.8 L (40.0-54.0) % MCV 99 H (76-96) fL MCH 32.4 H (27.0-32.0) pg MCHC 32.5 (31.0-35.0) g/dL RDW 13.3 (11.0-16.0) % Plt Count 160 (150-400) K/uL MPV 10.4 H (6.0-10.0) fL Neut % (Auto) 72.6 H (45.0-70.0) % Lymph % (Auto) 10.8 L (20.0-40.0) % [place] % (Auto) 12.2 H (3.0-10.0) % Eos % (Auto) 3.9 (1.0-5.0) % Baso % (Auto) 0.5 (0.0-0.5) % Neut # (Auto) 4.11 (2.00-7.50) K/uL Lymph # (Auto) 0.61 L (1.50-4.00) K/uL [place] # (Auto) 0.69 (0.20-0.80) K/uL Eos # (Auto) 0.22 (0.04-0.40) K/uL Baso # (Auto) 0.03 (0.02-0.10) K/uL Sodium 145 (136-145) mmol/L Potassium 3.8 (3.5-5.1) mmol/L Chloride 109 H (98-107) mmol/L Carbon Dioxide 30.9 (21.0-32.0) mmol/L Anion Gap 8.9 (5.0-15.0) mmol/L BUN 28 H (8-26) mg/dL Creatinine 2.29 H (0.70-1.30) mg/dL Est Cr Clr Drug Dosing 18.21 mL/min Estimated GFR (MDRD) 27 L (>60) MLS/MIN BUN/Creatinine Ratio 12.2 (6-25) Glucose 98 (74-100) mg/dL POC Glucose 179 H (74-110) mg/dL Calcium 7.6 L (8.5-10.1) mg/dL Digoxin (0.5-2.00) ng/mL JOIE Results - Last 24 hrs: Microbiology 07/16/17 20:47 Influenza Type A Antigen Screen - Final Nasal, Unspecified NEGATIVE INFLUENZA A VIRUS AG Influenza Type B Antigen Screen - Final NEGATIVE INFLUENZA B VIRUS AG Med Orders - Current: Current Medications Acetaminophen (Tylenol) 325 mg PO Q4H PRN PRN Reason: fever, pain Albuterol/Ipratropium (Duoneb 3.0-0.5 Mg/3 Ml) 3 ml INH DAILY [facility] Last Admin: 07/17/17 07:53 Dose: 3 ml Arformoterol Tartrate (Brovana) 15 mcg INH BID [facility] Last Admin: 07/17/17 07:41 Dose: 15 mcg Aspirin (Halfprin) 81 mg PO DAILY [facility] Last Admin: 07/17/17 07:44 Dose: 81 mg Budesonide (Pulmicort) 0.5 mg INH BID [facility] Last Admin: 07/17/17 07:30 Dose: 0.5 mg Cholecalciferol (Vitamin D3) 2,000 unit PO DAILY [facility] Last Admin: 07/17/17 07:43 Dose: 2,000 unit Digoxin (Lanoxin) 125 mcg PO DAILY [facility] Last Admin: 07/16/17 10:37 Dose: 125 mcg Furosemide (Lasix) 40 mg PO DAILY [facility] Last Admin: 07/17/17 07:44 Dose: 40 mg Sodium Chloride (Sodium Chloride 0.45%) 1,000 mls @ 75 mls/hr IV ASDIRECTED [facility] Last Admin: 07/16/17 14:10 Dose: 75 mls/hr Insulin Aspart (Novolog) 0 unit SUBCUT WITHMEALSANDBED [facility] PRN Reason: Protocol Last Admin: 07/17/17 07:50 Dose: Not Given Levetiracetam (Keppra) 750 mg PO BID [facility] Last Admin: 07/17/17 07:44 Dose: 750 mg Levothyroxine Sodium (Levothyroxine) 25 mcg PO ACBREAKFAST [facility] Last Admin: 07/17/17 06:47 Dose: 25 mcg Multivitamins/Minerals (Thera M Plus) 1 tab PO DAILY [facility] Last Admin: 07/17/17 07:43 Dose: 1 tab Nystatin (Nystop) 0 gm TOP QID [facility] Last Admin: 07/17/17 07:51 Dose: 1 applic Potassium Chloride (Klor-Con 10) 10 meq PO DAILY [facility] Last Admin: 07/17/17 07:43 Dose: 10 meq Quetiapine Fumarate (Seroquel) 25 mg PO BEDTIME [facility] Last Admin: 07/16/17 19:54 Dose: 25 mg Ranitidine HCl (Zantac) 150 mg PO BEDTIME [facility] Last Admin: 07/16/17 19:54 Dose: 150 mg Tamsulosin HCl (Flomax) 0.4 mg PO PCBREAKFAST [facility] Last Admin: 07/16/17 10:00 Dose: 0.4 mg Discontinued Medications Acetaminophen (Tylenol) Confirm Administered Dose 325 mg .ROUTE .STK-MED ONE Stop: 07/16/17 20:58 Last Admin: 07/16/17 21:04 Dose: 325 mg Sodium Chloride (Normal Saline) 1,000 mls @ 75 mls/hr IV ASDIRECTED [facility] Last Admin: 07/14/17 17:55 Dose: 75 mls/hr Sodium Chloride (Normal Saline) 1,000 mls @ 999 mls/hr IV ASDIRECTED [facility] Last Admin: 07/14/17 11:29 Dose: 999 mls/hr Insulin Aspart (Novolog) 0 - 10 unit SUBCUT TIDAC PRN PRN Reason: Blood Glucose Lorazepam (Ativan) Confirm Administered Dose 2 mg .ROUTE .STK-MED ONE Stop: 07/14/17 20:38 Last Admin: 07/15/17 00:46 Dose: Not Given Lorazepam (Ativan) Confirm Administered Dose 2 mg .ROUTE .STK-MED ONE Stop: 07/14/17 23:13 Last Admin: 07/15/17 00:47 Dose: Not Given Lorazepam (Ativan) 0.5 mg IVPUSH Q1H PRN PRN Reason: Agitation Last Admin: 07/14/17 23:20 Dose: 0.5 mg Nystatin (Nystop) Confirm Administered Dose 15 gm .ROUTE .STK-MED ONE Stop: 07/15/17 12:13 Last Admin: 07/15/17 12:25 Dose: Not Given - Exam General: Reports: Alert, Cooperative HEENT: Reports: Pupils Equal Neck: Reports: Supple Lungs: Reports: Clear to Auscultation, Normal Respiratory Effort Cardiovascular: Reports: Regular Rate, Regular Rhythm GI/Abdominal Exam: Normal Bowel Sounds Neurological: Reports: No New Focal Deficit Psy/Mental Status: Reports: Alert, Normal Affect, Normal Mood *Q Meaningful Use (DIS) - VTE *Q VTE Criteria *Q: - Stroke *Q Stroke Criteria *Q: - AMI *Q AMI Criteria *Q:
[2017-07-17] MEDS: Tamsulosin 0.4 MG Cap.ER PO SCH (10:00)
== END 2017-07-17 10:12 | disposition swing bed (61) | DRG 312 ==
LOC: LB.ED 10:41 → UNDOADMIN 12:40 → LB.MS 12:40
PROVIDERS: ADMIT Family Medicine; ATTEND Family Medicine
DX: R55 Syncope and collapse (principal); N18.4 Chronic kidney disease, stage 4 (severe); F01.51 Vascular dementia, unspecified severity, with behavioral disturbance; I48.91 Unspecified atrial fibrillation; R00.1 Bradycardia, unspecified; D64.9 Anemia, unspecified; E78.00 Pure hypercholesterolemia, unspecified; W20.8XXA Other cause of strike by thrown, projected or falling object, initial encounter; F03.90 Unspecified dementia, unspecified severity, without behavioral disturbance, psychotic disturbance, mood disturbance, and anxiety; Y92.019 Unspecified place in single-family (private) house as the place of occurrence of the external cause; I50.9 Heart failure, unspecified; I25.2 Old myocardial infarction; I48.2 Chronic atrial fibrillation; R53.1 Weakness; R41.0 Disorientation, unspecified; I25.10 Atherosclerotic heart disease of native coronary artery without angina pectoris; E11.9 Type 2 diabetes mellitus without complications; E03.9 Hypothyroidism, unspecified; Z85.820 Personal history of malignant melanoma of skin; Z79.899 Other long term (current) drug therapy; R45.1 Restlessness and agitation
CPT/HCPCS: 36415; 71045; 80048; 80053; 80162; 80177; 81001; 82140; 82800; 82962; 83605; 83880; 84443; 84484; 85025; 87040; 87804; 93005; 93306; 99285-25; A0425; A0429; A9270-GY; J2060; J3490; J7040; J7605; J7620; J7626

== ENCOUNTER 2017-07-17 09:47 | Inpatient (IN) | payer MEDICARE, BC ==
[2017-07-17] MEDS ORDERED: Tuberculin, PPD 5 Units/0.1 ML 1 ML MDV IDERM ONE (13:39)
[2017-07-17] MEDS ORDERED: Insulin Aspart 100 Units/ML 3 ML Pen SUBCUT PRN ×2 (16:52→21:08)
--- NOTE | 2017-07-17 17:01 | PCM.HP ---
H&P History of Present Illness - General Date of Service: 07/17/17 Admit Problem/Dx: Admission Diagnosis/Problem Admission Diagnosis/Problem Weakness Source of Information: Patient History Limitations: Reports: Uncooperative - History of Present Illness Initial Comments - Free Text/Narative: This is a 86yo M who was admitted for bradycardia and confusion. He has moderate -severe dementia and has sundowning episodes of agitation. He has been setup with PT/OT but has not cooperated as we have hoped. He has not gotten out of bed and will not cooperate at this time. Onset of Symptoms: Reports: Gradual Duration of Symptoms: Reports: Day(s): Location: Reports: Generalized Improves with: Reports: None Worsens with: Reports: None - Related Data Allergies/Adverse Reactions: Allergies Allergy/AdvReac Type Severity Reaction Status Date / Time No Known Allergies Allergy Verified 07/17/17 12:02 Home Medications: Home Meds Multivitamin [Multi-Vitamin Daily] 1 tab PO DAILY 08/10/14 [History] Ranitidine HCl 150 mg PO BEDTIME 08/10/14 [History] Levothyroxine 25 mcg PO ACBREAKFAST tablet 10/03/14 [Rx] Tamsulosin [Flomax] 0.4 mg PO PCBREAKFAST cap.er 10/03/14 [Rx] levETIRAcetam [Keppra] 750 mg PO BID tablet 10/03/14 [Rx] Cholecalciferol (Vitamin D3) [Vitamin D3] 2,000 unit PO DAILY cap 11/04/14 [Rx] Insulin Aspart [NovoLOG] 0 - 10 unit SUBCUT TIDAC PRN 12/10/14 [History] Aspirin [[place] Aspirin] 81 mg PO DAILY 10/07/16 [History] Digoxin 125 mcg PO DAILY 10/07/16 [History] Arformoterol [Brovana] 1 inh INH BID 07/14/17 [History] Budesonide [Pulmicort] 0.5 mg IH BID 07/14/17 [History] Furosemide 40 mg PO DAILY 07/14/17 [History] Ipratropium/Albuterol Sulfate [Iprat-Albut 0.5-3(2.5) mg/3 ml] 3 ml IH DAILY 05/19 [History] Potassium Chloride [Klor-Con 10] 0.5 tab PO DAILY 07/14/17 [History] Acetaminophen [Tylenol] 325 mg PO Q4H PRN tablet 07/17/17 [Rx] Insulin Aspart [NovoLOG] 0 unit SUBCUT WITHMEALSANDBED pen 07/17/17 [Rx] Nystatin [Nystop] 0 gm TOP QID bottle 07/17/17 [Rx] QUEtiapine [SEROquel] 25 mg PO BEDTIME tablet 07/17/17 [Rx] Past Medical History HEENT History: Reports: Cataract, Hard of Hearing Cardiovascular History: Reports: Afib, CAD, Heart Failure, High Cholesterol, [place] Respiratory History: Reports: Pneumonia, Recurrent Gastrointestinal History: Reports: Other (See Below) Other Gastrointestinal History: Frequent bowel movements Genitourinary History: Reports: Acute Renal Failure, Renal Disease, UTI, Recurrent Musculoskeletal History: Reports: Back Pain, Chronic Neurological History: Reports: Seizure Other Neuro History: hx of 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 frequent skin cancers - Infectious Disease History Infectious Disease History: Reports: Chicken Pox - Past Surgical History HEENT Surgical History: Reports: Cataract Surgery GI Surgical History: Reports: Hernia Repair/Other Social & Family History - Family History Family Medical History: Noncontributory - Tobacco Use Smoking Status *Q: Never Smoker Second Hand Smoke Exposure: No - Caffeine Use Caffeine Use: Reports: None - Alcohol Use Days Per Week of Alcohol Use: 0 - Recreational Drug Use Recreational Drug Use: No - Living Situation & Occupation Living situation: Reports: Occupation: Retired H&P Review of Systems - Review of Systems: Review Of Systems: ROS reveals no pertinent complaints other than HPI. Exam - Exam Exam: See Below - Vital Signs Vital Signs: Last Vital Signs Temp 37.2 C 07/17/17 09:57 Pulse 54 L 07/17/17 09:57 Resp 18 07/17/17 09:57 BP 120/48 L 07/17/17 09:57 Pulse Ox 93 L 07/17/17 09:57 Weight: 60.781 kg - Exam General: Other (Alert when aroused. He appears to rest and lie in bed but will respond when stimulated. At times he will ignore you.) Neck: Supple, Trachea Midline Lungs: Clear to Auscultation, Normal Respiratory Effort Cardiovascular: Regular Rhythm, Bradycardia GI/Abdominal Exam: Normal Bowel Sounds, Soft Back Exam: Normal Inspection Extremities: Normal Inspection *Q Meaningful Use (ADM) - VTE *Q VTE Criteria *Q: - Stroke *Q Stroke Criteria *Q: - AMI *Q AMI Criteria *Q: - Problem List (1) Confusion SNOMED Code(s): 108895971 ICD Code: R41.0 - DISORIENTATION, UNSPECIFIED Status: Acute Current Visit : No (2) Fall SNOMED Code(s): 8483146 ICD Code: W19.XXXA - UNSPECIFIED FALL, INITIAL ENCOUNTER Status: Acute Priority: High Current Visit: No Qualifiers: Encounter type: initial encounter Qualified Code(s): W19.XXXA - Unspecified fall, initial encounter (3) Kidney failure SNOMED Code(s): 05201952 ICD Code: N19 - UNSPECIFIED KIDNEY FAILURE Status: Acute Current Visit: No Onset Date: 10/26/15 Problem Details: 10/26/15 - 1. Syncopal episode, 2. Confusion, 3. Dehydration, 4. Hyperglycemia, 5. Hyperkalemia, 6. Kidney failure , 7. Weakness (4) Anemia SNOMED Code(s): 688843839 ICD Code: D64.9 - ANEMIA, UNSPECIFIED Status: Chronic Current Visit: No Qualifiers: Anemia type: unspecified type Qualified Code(s): D64.9 - Anemia, unspecified (5) Atrial fibrillation SNOMED Code(s): 71647726 ICD Code: I48.91 - UNSPECIFIED ATRIAL FIBRILLATION Status: Chronic Priority: High Current Visit: No Problem Details: chronich atrial fib Qualifiers: Atrial fibrillation type: permanent Qualified Code(s): I48.2 - Chronic atrial fibrillation (6) CHF (congestive heart failure) SNOMED Code(s): 00525932 ICD Code: I50.9 - HEART FAILURE, UNSPECIFIED Status: Chronic Priority: High Current Visit: No Problem Details: 09/30/2014 Doing well (7) Dementia SNOMED Code(s): 53638864 ICD Code: F03.90 - UNSPECIFIED DEMENTIA WITHOUT BEHAVIORAL DISTURBANCE Status: Chronic Priority: High Current Visit: No Qualifiers: Dementia type: vascular dementia Dementia behavioral disturbance: with behavioral disturbance Qualified Code(s): F01.51 - Vascular dementia with behavioral disturbance (8) Bradycardia SNOMED Code(s): 02451852 ICD Code: R00.1 - BRADYCARDIA, UNSPECIFIED Status: Resolved Priority: High Current Visit: No Problem List Initiated/Reviewed/Updated: Yes Orders Last 24hrs: Active Orders 24 hr Category Date Time Status Patient Status [ADT] Routine ADT 07/17/17 11:33 Active OT Evaluation and Treatment [CONS] Routine Cons 07/17/17 15:58 Active PT Evaluation and Treatment [CONS] Routine Cons 07/17/17 15:58 Active Acetaminophen [Tylenol] Med 07/17/17 16:52 Ordered 325 mg PO Q4H PRN Albuterol/Ipratropium [DuoNeb 3.0-0.5 MG/3 ML] Med 07/18/17 08:00 Ordered 3 ml INH DAILY Arformoterol [Brovana] Med 07/17/17 20:00 Ordered 1 inh INH BID Aspirin [Halfprin] Med 07/18/17 08:00 Ordered 81 mg PO DAILY Budesonide [Pulmicort] Med 07/17/17 20:00 Ordered 0.5 mg INH BID Cholecalciferol (Vitamin D3) [Vitamin D3] Med 07/18/17 08:00 Ordered 2,000 unit PO DAILY Digoxin [Lanoxin] Med 07/18/17 08:00 Ordered 125 mcg PO DAILY Furosemide [Lasix] Med 07/18/17 08:00 Ordered 40 mg PO DAILY Insulin Aspart [NovoLOG] Med 07/17/17 16:52 Ordered 0 - 10 unit SUBCUT TIDAC PRN Levothyroxine Med 07/18/17 07:00 Ordered 25 mcg PO ACBREAKFAST Multivitamin [Multi-Vitamin Daily] Med 07/18/17 08:00 Ordered 1 tab PO DAILY Nystatin [Nystop] Med 07/17/17 20:00 Ordered 1 gm TOP QID Potassium Chloride [Klor-Con 10] Med 07/18/17 08:00 Ordered 0.5 tab PO DAILY QUEtiapine [SEROquel] Med 07/17/17 20:00 Ordered 25 mg PO BEDTIME Ranitidine [Zantac] Med 07/17/17 20:00 Ordered 150 mg PO BEDTIME Tamsulosin [Flomax] Med 07/18/17 10:00 Ordered 0.4 mg PO PCBREAKFAST levETIRAcetam [Keppra] Med 07/17/17 20:00 Ordered 750 mg PO BID Medication Orders Acetaminophen (Tylenol) 325 mg PO Q4H PRN PRN Reason: fever, pain Albuterol/Ipratropium (Duoneb 3.0-0.5 Mg/3 Ml) 3 ml INH DAILY [facility] Arformoterol Tartrate (Brovana) mcg INH BID [facility] Aspirin (Halfprin) 81 mg PO DAILY [facility] Budesonide (Pulmicort) 0.5 mg INH BID [facility] Cholecalciferol (Vitamin D3) 2,000 unit PO DAILY [facility] Digoxin (Lanoxin) 125 mcg PO DAILY [facility] Furosemide (Lasix) 40 mg PO DAILY [facility] Insulin Aspart (Novolog) 0 - 10 unit SUBCUT TIDAC PRN PRN Reason: Blood Glucose Levetiracetam (Keppra) 750 mg PO BID [facility] Levothyroxine Sodium (Levothyroxine) 25 mcg PO ACBREAKFAST [facility] Non-Formulary Medication (Multivitamin [Multi-Vitamin Daily]) 1 tab PO DAILY [facility] Nystatin (Nystop) 1 gm TOP QID [facility] Potassium Chloride (Klor-Con 10) meq PO DAILY [facility] Quetiapine Fumarate (Seroquel) 25 mg PO BEDTIME [facility] Ranitidine HCl (Zantac) 150 mg PO BEDTIME [facility] Assessment/Plan Comment:: Patient admitted to Swing bed for further PT/OT care and management. Discussed with PT/OT on management and evaluation. We will continue current medications at this time including Seroquel which has helped his agitation at night greatly. We will follow up renal dysfunction and CHF as needed.
[2017-07-17] MEDS: levETIRAcetam 500 MG Tab PO SCH (19:47)
[2017-07-17] MEDS: Nystatin Topical Powder 15 GM Bottle TOP SCH (19:47)
[2017-07-17] MEDS: Arformoterol 15 MCG/2 ML Neb Soln INH SCH (19:47)
[2017-07-17] MEDS: Budesonide 0.5 MG/2 ML Neb Susp INH SCH (19:47)
[2017-07-17] MEDS: QUEtiapine 25 MG Tab PO SCH (19:47)
[2017-07-18] MEDS: Levothyroxine 25 MCG Tab PO SCH (06:27)
[2017-07-18] MEDS: Calcium Carbonate 600 MG Tab PO SCH ×2 (08:26→17:31)
[2017-07-18] MEDS: Furosemide 40 MG Tab PO SCH (08:26)
[2017-07-18] MEDS: Aspirin 81 MG Tab.EC PO SCH (08:26)
[2017-07-18] MEDS: levETIRAcetam 500 MG Tab PO SCH ×2 (08:27→19:57)
[2017-07-18] MEDS: Digoxin 125 MCG Tab PO SCH (08:27)
[2017-07-18] MEDS: Cholecalciferol (Vitamin D3) 2,000 Unit Cap PO SCH (08:28)
[2017-07-18] MEDS: Potassium Chloride 10 MEQ Tab.ER PO SCH (08:29)
[2017-07-18] MEDS: Nystatin Topical Powder 15 GM Bottle TOP SCH ×4 (08:30→19:58)
[2017-07-18] MEDS: Multivitamins with Iron/Calcium/Folic Acid/Minerals Tab PO SCH (08:30)
[2017-07-18] MEDS: Budesonide 0.5 MG/2 ML Neb Susp INH SCH ×2 (09:22→19:58)
[2017-07-18] MEDS: Albuterol/Ipratropium 3.0-0.5 MG/3 ML Neb Soln INH SCH (09:45)
[2017-07-18] MEDS: Arformoterol 15 MCG/2 ML Neb Soln INH SCH ×2 (09:49→19:57)
[2017-07-18] MEDS: Tamsulosin 0.4 MG Cap.ER PO SCH (09:49)
[2017-07-18] MEDS: Insulin Aspart 100 Units/ML 3 ML Pen SUBCUT SCH (17:37)
[2017-07-18] MEDS: QUEtiapine 25 MG Tab PO SCH (19:58)
[2017-07-18] MEDS: Acetaminophen 325 MG Tab PO PRN (19:59)
[2017-07-19] MEDS ORDERED: diphenhydrAMINE 50 MG Cap PO PRN (02:23)
[2017-07-19] MEDS ORDERED: diphenhydrAMINE 25 MG Cap ONE (02:34)
[2017-07-19] MEDS: diphenhydrAMINE 50 MG Cap PO PRN ×2 (02:35→20:56)
[2017-07-19] MEDS: Levothyroxine 25 MCG Tab PO SCH (06:24)
[2017-07-19] MEDS: Acetaminophen 325 MG Tab PO PRN ×2 (06:25→20:56)
[2017-07-19] MEDS: Calcium Carbonate 600 MG Tab PO SCH ×2 (07:43→16:48)
[2017-07-19] MEDS: Multivitamins with Iron/Calcium/Folic Acid/Minerals Tab PO SCH (07:43)
[2017-07-19] MEDS: Aspirin 81 MG Tab.EC PO SCH (07:43)
[2017-07-19] MEDS: Cholecalciferol (Vitamin D3) 2,000 Unit Cap PO SCH (07:44)
[2017-07-19] MEDS: Furosemide 40 MG Tab PO SCH (07:44)
[2017-07-19] MEDS: Potassium Chloride 10 MEQ Tab.ER PO SCH (07:44)
[2017-07-19] MEDS: levETIRAcetam 500 MG Tab PO SCH ×2 (07:45→20:57)
[2017-07-19] MEDS: Digoxin 125 MCG Tab PO SCH (07:46)
[2017-07-19] MEDS: Albuterol/Ipratropium 3.0-0.5 MG/3 ML Neb Soln INH SCH (07:48)
[2017-07-19] MEDS: Arformoterol 15 MCG/2 ML Neb Soln INH SCH ×2 (07:48→20:59)
[2017-07-19] MEDS: Insulin Aspart 100 Units/ML 3 ML Pen SUBCUT SCH ×3 (07:55→17:09)
[2017-07-19] MEDS: Nystatin Topical Powder 15 GM Bottle TOP SCH ×4 (08:00→20:58)
[2017-07-19] MEDS ORDERED: Tuberculin, PPD 5 Units/0.1 ML 1 ML MDV IDERM ONE (08:00)
[2017-07-19] MEDS: Budesonide 0.5 MG/2 ML Neb Susp INH SCH ×2 (09:11→20:58)
[2017-07-19] MEDS: Tamsulosin 0.4 MG Cap.ER PO SCH (11:00)
[2017-07-19] MEDS: QUEtiapine 25 MG Tab PO SCH (20:59)
[2017-07-20] MEDS: Levothyroxine 25 MCG Tab PO SCH (06:54)
[2017-07-20] MEDS: Insulin Aspart 100 Units/ML 3 ML Pen SUBCUT SCH ×3 (07:58→17:22)
[2017-07-20] MEDS: Aspirin 81 MG Tab.EC PO SCH (07:59)
[2017-07-20] MEDS: Calcium Carbonate 600 MG Tab PO SCH ×2 (07:59→17:22)
[2017-07-20] MEDS: levETIRAcetam 500 MG Tab PO SCH ×2 (08:00→21:01)
[2017-07-20] MEDS: Digoxin 125 MCG Tab PO SCH (08:01)
[2017-07-20] MEDS: Potassium Chloride 10 MEQ Tab.ER PO SCH (08:01)
[2017-07-20] MEDS: Furosemide 40 MG Tab PO SCH (08:02)
[2017-07-20] MEDS: Multivitamins with Iron/Calcium/Folic Acid/Minerals Tab PO SCH (08:02)
[2017-07-20] MEDS: Cholecalciferol (Vitamin D3) 2,000 Unit Cap PO SCH (08:03)
[2017-07-20] MEDS: Nystatin Topical Powder 15 GM Bottle TOP SCH ×4 (08:04→21:02)
[2017-07-20] MEDS: Albuterol/Ipratropium 3.0-0.5 MG/3 ML Neb Soln INH SCH (08:04)
[2017-07-20] MEDS: Arformoterol 15 MCG/2 ML Neb Soln INH SCH ×2 (08:04→21:02)
[2017-07-20] MEDS: Budesonide 0.5 MG/2 ML Neb Susp INH SCH ×2 (11:37→21:02)
[2017-07-20] MEDS: Tamsulosin 0.4 MG Cap.ER PO SCH (11:56)
[2017-07-20] MEDS: Acetaminophen 325 MG Tab PO PRN (21:00)
[2017-07-20] MEDS: diphenhydrAMINE 25 MG Cap PO PRN (21:01)
[2017-07-20] MEDS: QUEtiapine 25 MG Tab PO SCH (21:01)
[2017-07-21] MEDS: Calcium Carbonate 600 MG Tab PO SCH ×2 (08:31→17:11)
[2017-07-21] MEDS: Multivitamins with Iron/Calcium/Folic Acid/Minerals Tab PO SCH (08:31)
[2017-07-21] MEDS: Aspirin 81 MG Tab.EC PO SCH (08:31)
[2017-07-21] MEDS: Levothyroxine 25 MCG Tab PO SCH (08:31)
[2017-07-21] MEDS: Digoxin 125 MCG Tab PO SCH (08:31)
[2017-07-21] MEDS: Furosemide 40 MG Tab PO SCH (08:31)
[2017-07-21] MEDS: Insulin Aspart 100 Units/ML 3 ML Pen SUBCUT SCH ×3 (08:32→17:10)
[2017-07-21] MEDS: Arformoterol 15 MCG/2 ML Neb Soln INH SCH ×2 (08:32→21:14)
[2017-07-21] MEDS: Cholecalciferol (Vitamin D3) 2,000 Unit Cap PO SCH (08:32)
[2017-07-21] MEDS: Albuterol/Ipratropium 3.0-0.5 MG/3 ML Neb Soln INH SCH (08:32)
[2017-07-21] MEDS: Potassium Chloride 10 MEQ Tab.ER PO SCH (08:34)
[2017-07-21] MEDS: levETIRAcetam 500 MG Tab PO SCH ×2 (08:34→20:40)
[2017-07-21] MEDS: Budesonide 0.5 MG/2 ML Neb Susp INH SCH ×2 (08:59→21:14)
[2017-07-21] MEDS: Nystatin Topical Powder 15 GM Bottle TOP SCH ×4 (09:01→20:40)
[2017-07-21] MEDS: Tamsulosin 0.4 MG Cap.ER PO SCH (11:31)
[2017-07-21] MEDS: QUEtiapine 25 MG Tab PO SCH (20:40)
[2017-07-22] MEDS: Digoxin 125 MCG Tab PO SCH (08:07)
[2017-07-22] MEDS: Furosemide 40 MG Tab PO SCH (08:07)
[2017-07-22] MEDS: Aspirin 81 MG Tab.EC PO SCH (08:07)
[2017-07-22] MEDS: levETIRAcetam 500 MG Tab PO SCH ×2 (08:07→19:57)
[2017-07-22] MEDS: Potassium Chloride 10 MEQ Tab.ER PO SCH (08:08)
[2017-07-22] MEDS: Cholecalciferol (Vitamin D3) 2,000 Unit Cap PO SCH (08:08)
[2017-07-22] MEDS: Multivitamins with Iron/Calcium/Folic Acid/Minerals Tab PO SCH (08:08)
[2017-07-22] MEDS: Arformoterol 15 MCG/2 ML Neb Soln INH SCH ×2 (08:09→20:15)
[2017-07-22] MEDS: Calcium Carbonate 600 MG Tab PO SCH ×2 (08:09→17:48)
[2017-07-22] MEDS: Albuterol/Ipratropium 3.0-0.5 MG/3 ML Neb Soln INH SCH (08:09)
[2017-07-22] MEDS: Levothyroxine 25 MCG Tab PO SCH (08:09)
[2017-07-22] MEDS: Insulin Aspart 100 Units/ML 3 ML Pen SUBCUT SCH ×3 (08:17→17:50)
[2017-07-22] MEDS: Budesonide 0.5 MG/2 ML Neb Susp INH SCH ×2 (08:45→20:03)
[2017-07-22] MEDS: Nystatin Topical Powder 15 GM Bottle TOP SCH ×4 (09:39→19:58)
[2017-07-22] MEDS: Tamsulosin 0.4 MG Cap.ER PO SCH (10:44)
[2017-07-22] MEDS: Acetaminophen 325 MG Tab PO PRN (19:56)
[2017-07-22] MEDS: QUEtiapine 25 MG Tab PO SCH (19:56)
[2017-07-22] MEDS: diphenhydrAMINE 25 MG Cap PO PRN (19:57)
[2017-07-23] MEDS: Levothyroxine 25 MCG Tab PO SCH (06:41)
[2017-07-23] MEDS: levETIRAcetam 500 MG Tab PO SCH ×2 (08:08→19:58)
[2017-07-23] MEDS: Calcium Carbonate 600 MG Tab PO SCH ×2 (08:08→19:56)
[2017-07-23] MEDS: Cholecalciferol (Vitamin D3) 2,000 Unit Cap PO SCH (08:08)
[2017-07-23] MEDS: Aspirin 81 MG Tab.EC PO SCH (08:08)
[2017-07-23] MEDS: Nystatin Topical Powder 15 GM Bottle TOP SCH ×4 (08:09→20:16)
[2017-07-23] MEDS: Potassium Chloride 10 MEQ Tab.ER PO SCH (08:09)
[2017-07-23] MEDS: Furosemide 40 MG Tab PO SCH (08:09)
[2017-07-23] MEDS: Multivitamins with Iron/Calcium/Folic Acid/Minerals Tab PO SCH (08:09)
[2017-07-23] MEDS: Digoxin 125 MCG Tab PO SCH (08:10)
[2017-07-23] MEDS: Albuterol/Ipratropium 3.0-0.5 MG/3 ML Neb Soln INH SCH (08:12)
[2017-07-23] MEDS: Arformoterol 15 MCG/2 ML Neb Soln INH SCH ×2 (08:12→20:14)
[2017-07-23] MEDS: Budesonide 0.5 MG/2 ML Neb Susp INH SCH ×2 (08:12→20:05)
[2017-07-23] MEDS: Insulin Aspart 100 Units/ML 3 ML Pen SUBCUT SCH ×3 (08:13→18:33)
[2017-07-23] MEDS: Tamsulosin 0.4 MG Cap.ER PO SCH (11:16)
[2017-07-23] MEDS: Acetaminophen 325 MG Tab PO PRN (19:58)
[2017-07-23] MEDS: QUEtiapine 25 MG Tab PO SCH (19:58)
[2017-07-23] MEDS: diphenhydrAMINE 25 MG Cap PO PRN (19:58)
[2017-07-24] MEDS: Levothyroxine 25 MCG Tab PO SCH (06:37)
[2017-07-24] MEDS: Furosemide 40 MG Tab PO SCH (09:37)
[2017-07-24] MEDS: Cholecalciferol (Vitamin D3) 2,000 Unit Cap PO SCH (09:37)
[2017-07-24] MEDS: Aspirin 81 MG Tab.EC PO SCH (09:39)
[2017-07-24] MEDS: levETIRAcetam 500 MG Tab PO SCH ×2 (09:39→19:57)
[2017-07-24] MEDS: Arformoterol 15 MCG/2 ML Neb Soln INH SCH ×2 (09:39→20:04)
[2017-07-24] MEDS: Calcium Carbonate 600 MG Tab PO SCH ×2 (09:40→18:15)
[2017-07-24] MEDS: Potassium Chloride 10 MEQ Tab.ER PO SCH (09:40)
[2017-07-24] MEDS: Digoxin 125 MCG Tab PO SCH (09:40)
[2017-07-24] MEDS: Multivitamins with Iron/Calcium/Folic Acid/Minerals Tab PO SCH (09:40)
[2017-07-24] MEDS: Insulin Aspart 100 Units/ML 3 ML Pen SUBCUT SCH ×3 (09:42→18:14)
[2017-07-24] MEDS: Budesonide 0.5 MG/2 ML Neb Susp INH SCH ×2 (09:42→20:01)
[2017-07-24] MEDS: Albuterol/Ipratropium 3.0-0.5 MG/3 ML Neb Soln INH SCH (09:42)
[2017-07-24] MEDS: Nystatin Topical Powder 15 GM Bottle TOP SCH ×4 (09:47→19:58)
[2017-07-24] MEDS: Tamsulosin 0.4 MG Cap.ER PO SCH ×2 (11:15→18:15)
--- NOTE | 2017-07-24 11:25 | PCM.PN ---
- General Info Date of Service: 07/22/17 Subjective Update: Patient denies any concerns or complaints. Nursing have reported urinary retention and patient has been unable to feel urge or distention. PT/OT have been going well and patient has been able to ambulate and transfer without assistance. Functional Status: Reports: Tolerating Diet, Ambulating - Review of Systems General: Reports: Weakness HEENT: Reports: No Symptoms Pulmonary: Reports: No Symptoms Cardiovascular: Reports: No Symptoms Gastrointestinal: Reports: No Symptoms Genitourinary: Reports: Retention Skin: Reports: No Symptoms Neurological: Reports: Weakness - Patient Data Vitals - Most Recent: Last Vital Signs Temp 36.8 C 07/24/17 08:00 Pulse 62 07/24/17 08:00 Resp 18 07/24/17 08:00 BP 116/56 L 07/24/17 08:00 Pulse Ox 98 07/24/17 08:00 Weight - Most Recent: 59.602 kg I&O - Last 24 Hours: Intake & Output 07/23/17 07/24/17 07/24/17 22:59 06:59 14:59 Intake Total 100 Output Total 1050 0 Balance -950 0 Lab Results Last 24 Hours: Laboratory Results - last 24 hr 07/23/17 07/23/17 Range/Units 10:54 17:07 POC Glucose 230 H 169 H (74-110) mg/dL Med Orders - Current: Current Medications Acetaminophen (Tylenol) 325 mg PO Q4H PRN PRN Reason: fever, pain Last Admin: 07/23/17 19:58 Dose: 325 mg Albuterol/Ipratropium (Duoneb 3.0-0.5 Mg/3 Ml) 3 ml INH DAILY [facility] Last Admin: 07/24/17 09:42 Dose: 3 ml Arformoterol Tartrate (Brovana) 15 mcg INH BID [facility] Last Admin: 07/24/17 09:39 Dose: 15 mcg Aspirin (Halfprin) 81 mg PO DAILY [facility] Last Admin: 07/24/17 09:39 Dose: 81 mg Budesonide (Pulmicort) 0.5 mg INH BID [facility] Last Admin: 07/24/17 09:42 Dose: 0.5 mg Calcium Carbonate/Glycine (Calcium Carbonate) 600 mg PO BIDMEALS [facility] Last Admin: 07/24/17 09:40 Dose: 600 mg Cholecalciferol (Vitamin D3) 2,000 unit PO DAILY [facility] Last Admin: 07/24/17 09:37 Dose: 2,000 unit Digoxin (Lanoxin) 125 mcg PO DAILY [facility] Last Admin: 07/24/17 09:40 Dose: 125 mcg Diphenhydramine HCl (Benadryl) 25 mg PO BEDTIME PRN PRN Reason: Insomnia Last Admin: 07/23/17 19:58 Dose: 25 mg Furosemide (Lasix) 40 mg PO DAILY [facility] Last Admin: 07/24/17 09:37 Dose: 40 mg Insulin Aspart (Novolog) 0 unit SUBCUT TID@0800,1200,1700 [facility] PRN Reason: Protocol Last Admin: 07/24/17 09:42 Dose: Not Given Levetiracetam (Keppra) 750 mg PO BID [facility] Last Admin: 07/24/17 09:39 Dose: 750 mg Levothyroxine Sodium (Levothyroxine) 25 mcg PO ACBREAKFAST [facility] Last Admin: 07/24/17 06:37 Dose: 25 mcg Multivitamins/Minerals (Thera M Plus) 1 tab PO DAILY [facility] Last Admin: 07/24/17 09:40 Dose: 1 tab Nystatin (Nystop) 0 gm TOP QID [facility] Last Admin: 07/24/17 09:47 Dose: 1 applic Potassium Chloride (Klor-Con 10) 5 meq PO DAILY [facility] Last Admin: 07/24/17 09:40 Dose: 5 meq Quetiapine Fumarate (Seroquel) 25 mg PO BEDTIME [facility] Last Admin: 07/23/17 19:58 Dose: 25 mg Ranitidine HCl (Zantac) 150 mg PO BEDTIME [facility] Last Admin: 07/23/17 19:57 Dose: 150 mg Tamsulosin HCl (Flomax) 0.4 mg PO PCBREAKFAST [facility] Last Admin: 07/23/17 11:16 Dose: 0.4 mg Discontinued Medications Diphenhydramine HCl (Benadryl) 50 mg PO BEDTIME PRN PRN Reason: Insomnia Diphenhydramine HCl (Benadryl) 25 mg PO BEDTIME PRN PRN Reason: Insomnia Last Admin: 07/19/17 20:56 Dose: 25 mg Diphenhydramine HCl (Benadryl) Confirm Administered Dose 25 mg .ROUTE .ST-MED ONE Stop: 07/19/17 02:35 Last Admin: 07/19/17 03:33 Dose: Not Given Insulin Aspart (Novolog) 0 - 10 unit SUBCUT TIDAC PRN PRN Reason: Blood Glucose Last Admin: 07/17/17 17:30 Dose: 2 units Insulin Aspart (Novolog) 0 unit SUBCUT TIDAC PRN; Protocol PRN Reason: Blood Glucose Insulin Aspart (Novolog) 0 unit SUBCUT TIDAC [facility] PRN Reason: Protocol Last Admin: 07/23/17 18:33 Dose: 1 unit Tuberculin PPD (Aplisol) 5 unit IDERM ONETIME ONE Stop: 07/17/17 13:40 Last Admin: 07/19/17 04:07 Dose: Not Given Tuberculin PPD (Aplisol) 5 unit IDERM ONETIME ONE Stop: 07/19/17 08:01 Last Admin: 07/19/17 16:56 Dose: 5 unit - Exam General: Alert, Cooperative. No: Oriented HEENT: Pupils Equal, Pupils Reactive, EOMI Neck: Supple Lungs: Clear to Auscultation, Normal Respiratory Effort Cardiovascular: Regular Rate, Regular Rhythm GI/Abdominal Exam: Normal Bowel Sounds Back Exam: Normal Inspection Extremities: Normal Inspection Peripheral Pulses: 2+: Dorsalis Pedis (L), Dorsalis Pedis (R) Skin: Warm, Dry, Intact - Problem List & Annotations (1) Confusion SNOMED Code(s): 503680090 Code(s): R41.0 - DISORIENTATION, UNSPECIFIED Status: Acute Current Visit : No (2) Fall SNOMED Code(s): 1178037 Code(s): W19.XXXA - UNSPECIFIED FALL, INITIAL ENCOUNTER Status: Acute Priority: High Current Visit: No Qualifiers: Encounter type: initial encounter Qualified Code(s): W19.XXXA - Unspecified fall, initial encounter (3) Kidney failure SNOMED Code(s): 16129327 Code(s): N19 - UNSPECIFIED KIDNEY FAILURE Status: Acute Current Visit: No Onset Date: 10/26/15 Annotation/Comment:: 10/26/15 - 1. Syncopal episode, 2. Confusion, 3. Dehydration, 4. Hyperglycemia, 5. Hyperkalemia, 6. Kidney failure, 7. Weakness (4) Anemia SNOMED Code(s): 618591121 Code(s): D64.9 - ANEMIA, UNSPECIFIED Status: Chronic Current Visit: No Qualifiers: Anemia type: unspecified type Qualified Code(s): D64.9 - Anemia, unspecified (5) Atrial fibrillation SNOMED Code(s): 06810620 Code(s): I48.91 - UNSPECIFIED ATRIAL FIBRILLATION Status: Chronic Priority: High Current Visit: No Qualifiers: Atrial fibrillation type: permanent Qualified Code(s): I48.2 - Chronic atrial fibrillation Annotation/Comment:: chronich atrial fib (6) CHF (congestive heart failure) SNOMED Code(s): 74501828 Code(s): I50.9 - HEART FAILURE, UNSPECIFIED Status: Chronic Priority: High Current Visit: No Annotation/Comment:: 09/30/2014 Doing well (7) Dementia SNOMED Code(s): 36870947 Code(s): F03.90 - UNSPECIFIED DEMENTIA WITHOUT BEHAVIORAL DISTURBANCE Status: Chronic Priority: High Current Visit: No Qualifiers: Dementia type: vascular dementia Dementia behavioral disturbance: with behavioral disturbance Qualified Code(s): F01.51 - Vascular dementia with behavioral disturbance (8) Bradycardia SNOMED Code(s): 28270988 Code(s): R00.1 - BRADYCARDIA, UNSPECIFIED Status: Resolved Priority: High Current Visit: No - Problem List Review Problem List Initiated/Reviewed/Updated: Yes - My Orders Last 24 Hours: My Active Orders 07/24/17 08:00 Insulin Aspart [NovoLOG] 0 unit SUBCUT TID@0800,1200,1700 - Plan Plan:: Patient admitted to Swing bed for further PT/OT care and management. Discussed with PT/OT on management and evaluation. We will continue current medications at this time including Seroquel which has helped his agitation at night greatly. We will follow up renal dysfunction and CHF as needed. 07-22-17 Patient has improved greatly and able to ambulate with minimal assistance. Discussion of plan of care and discharge if patient continues to improve. Urinary retention and bladder training to continue.
[2017-07-24] MEDS ORDERED: Tamsulosin 0.4 MG Cap.ER PO SCH (17:15)
[2017-07-24] MEDS: QUEtiapine 25 MG Tab PO SCH (19:57)
[2017-07-24] MEDS: diphenhydrAMINE 25 MG Cap PO PRN (20:22)
[2017-07-24] MEDS: Acetaminophen 325 MG Tab PO PRN (20:23)
[2017-07-25] MEDS: Calcium Carbonate 600 MG Tab PO SCH (07:47)
[2017-07-25] MEDS: Aspirin 81 MG Tab.EC PO SCH (07:47)
[2017-07-25] MEDS: Levothyroxine 25 MCG Tab PO SCH (07:47)
[2017-07-25] MEDS: Furosemide 40 MG Tab PO SCH (07:47)
[2017-07-25] MEDS: levETIRAcetam 500 MG Tab PO SCH (07:48)
[2017-07-25] MEDS: Potassium Chloride 10 MEQ Tab.ER PO SCH (07:48)
[2017-07-25] MEDS: Cholecalciferol (Vitamin D3) 2,000 Unit Cap PO SCH (07:49)
[2017-07-25] MEDS: Multivitamins with Iron/Calcium/Folic Acid/Minerals Tab PO SCH (07:49)
[2017-07-25] MEDS: Digoxin 125 MCG Tab PO SCH (08:12)
[2017-07-25] MEDS: Insulin Aspart 100 Units/ML 3 ML Pen SUBCUT SCH ×2 (08:12→12:23)
[2017-07-25] MEDS: Albuterol/Ipratropium 3.0-0.5 MG/3 ML Neb Soln INH SCH (08:13)
[2017-07-25] MEDS: Nystatin Topical Powder 15 GM Bottle TOP SCH ×2 (08:13→12:23)
[2017-07-25] MEDS: Arformoterol 15 MCG/2 ML Neb Soln INH SCH (08:14)
[2017-07-25] MEDS: Budesonide 0.5 MG/2 ML Neb Susp INH SCH (08:14)
[2017-07-25 10:58] VITALS: BP 128/59
--- NOTE | 2017-07-25 11:16 | PCM.DCSUM1 ---
Discharge Summary - Discharge Data Discharge Date: 07/25/17 Discharge Disposition: Home, Self-Care 01 Condition: Good - Discharge Diagnosis/Problem(s) (1) Confusion SNOMED Code(s): 926882278 ICD Code: R41.0 - DISORIENTATION, UNSPECIFIED Status: Acute Current Visit : No (2) Fall SNOMED Code(s): 6190647 ICD Code: W19.XXXA - UNSPECIFIED FALL, INITIAL ENCOUNTER Status: Acute Priority: High Current Visit: No Qualifiers: Encounter type: initial encounter Qualified Code(s): W19.XXXA - Unspecified fall, initial encounter (3) Kidney failure SNOMED Code(s): 57263093 ICD Code: N19 - UNSPECIFIED KIDNEY FAILURE Status: Acute Current Visit: No Onset Date: 10/26/15 Problem Details: 10/26/15 - 1. Syncopal episode, 2. Confusion, 3. Dehydration, 4. Hyperglycemia, 5. Hyperkalemia, 6. Kidney failure , 7. Weakness (4) Anemia SNOMED Code(s): 163365018 ICD Code: D64.9 - ANEMIA, UNSPECIFIED Status: Chronic Current Visit: No Qualifiers: Anemia type: unspecified type Qualified Code(s): D64.9 - Anemia, unspecified (5) Atrial fibrillation SNOMED Code(s): 25733916 ICD Code: I48.91 - UNSPECIFIED ATRIAL FIBRILLATION Status: Chronic Priority: High Current Visit: No Problem Details: chronich atrial fib Qualifiers: Atrial fibrillation type: permanent Qualified Code(s): I48.2 - Chronic atrial fibrillation (6) CHF (congestive heart failure) SNOMED Code(s): 69833386 ICD Code: I50.9 - HEART FAILURE, UNSPECIFIED Status: Chronic Priority: High Current Visit: No Problem Details: 09/30/2014 Doing well (7) Dementia SNOMED Code(s): 00144037 ICD Code: F03.90 - UNSPECIFIED DEMENTIA WITHOUT BEHAVIORAL DISTURBANCE Status: Chronic Priority: High Current Visit: No Qualifiers: Dementia type: vascular dementia Dementia behavioral disturbance: with behavioral disturbance Qualified Code(s): F01.51 - Vascular dementia with behavioral disturbance (8) Bradycardia SNOMED Code(s): 48744315 ICD Code: R00.1 - BRADYCARDIA, UNSPECIFIED Status: Resolved Priority: High Current Visit: No (9) Neurogenic urinary bladder disorder SNOMED Code(s): 764542889 ICD Code: N31.9 - NEUROMUSCULAR DYSFUNCTION OF BLADDER, UNSPECIFIED Status : Acute Current Visit: Yes - Patient Summary/Data Consults: Consultations 07/17/17 15:58 OT Evaluation and Treatment [CONS] Routine Please Evaluate and Treat. OT Reason for Consult: ADL's This query below is only for informational purposes and is not editable. Admission Diagnosis/Problem: Weakness PT Evaluation and Treatment [CONS] Routine Please Evaluate and Treat. PT Reason for Consult: Ambulation This query below is only for informational purposes and is not editable. Admission Diagnosis/Problem: Weakness - Patient Instructions Diet: Regular Diet as Tolerated Activity: As Tolerated - Discharge Plan Home Medications: Home Meds Multivitamin [Multi-Vitamin Daily] 1 tab PO DAILY 08/10/14 [History] Ranitidine HCl 150 mg PO BEDTIME 08/10/14 [History] Levothyroxine 25 mcg PO ACBREAKFAST tablet 10/03/14 [Rx] levETIRAcetam [Keppra] 750 mg PO BID tablet 10/03/14 [Rx] Cholecalciferol (Vitamin D3) [Vitamin D3] 2,000 unit PO DAILY cap 11/04/14 [Rx] Insulin Aspart [NovoLOG] 0 - 10 unit SUBCUT TIDAC PRN 12/10/14 [History] Aspirin [[place] Aspirin] 81 mg PO DAILY 10/07/16 [History] Digoxin 125 mcg PO DAILY 10/07/16 [History] Arformoterol [Brovana] 1 inh INH BID 07/14/17 [History] Budesonide [Pulmicort] 0.5 mg IH BID 07/14/17 [History] Furosemide 40 mg PO DAILY 07/14/17 [History] Ipratropium/Albuterol Sulfate [Iprat-Albut 0.5-3(2.5) mg/3 ml] 3 ml IH DAILY 05/19 [History] Potassium Chloride [Klor-Con 10] 0.5 tab PO DAILY 07/14/17 [History] Acetaminophen [Tylenol] 325 mg PO Q4H PRN tablet 07/17/17 [Rx] Insulin Aspart [NovoLOG] 0 unit SUBCUT WITHMEALSANDBED pen 07/17/17 [Rx] QUEtiapine [SEROquel] 25 mg PO BEDTIME tablet 07/17/17 [Rx] Calcium Carbonate 600 mg PO BIDMEALS tablet 07/25/17 [Rx] diphenhydrAMINE [Benadryl] 25 mg PO BEDTIME PRN cap 07/25/17 [Rx] - Discharge Summary/Plan Comment DC Time >30 min.: Yes Discharge Summary/Plan Comment: Patient and family counseled on discharge. PT/OT and social work clearance done. Patient does have urinary retention and family will help care for gregory at this time. Patient will f/u in clinic next week for recheck of symptoms and gregory and referral to Urology. Family agree with plan of care and management. Discussed care center placement but family refuses at this time and wants [facility] to be at home. Discussed urinary retention and complications as well as risks of gregory and infection and complications from infection. F/u in clinic as directed and as needed. - Patient Data Vitals - Most Recent: Last Vital Signs Temp 36.6 C 07/25/17 08:00 Pulse 64 07/25/17 08:12 Resp 18 07/25/17 08:00 BP 128/59 L 07/25/17 08:00 Pulse Ox 98 07/25/17 08:00 Weight - Most Recent: 59.602 kg I&O - Last 24 hours: Intake & Output 07/24/17 07/25/17 07/25/17 22:59 06:59 14:59 Intake Total 780 100 Output Total 650 Balance 780 -550 Lab Results - Last 24 hrs: Laboratory Results - last 24 hr 07/24/17 07/25/17 Range/Units 17:04 07:09 POC Glucose 208 H 134 H (74-110) mg/dL Med Orders - Current: Current Medications Acetaminophen (Tylenol) 325 mg PO Q4H PRN PRN Reason: fever, pain Last Admin: 07/24/17 20:23 Dose: 325 mg Albuterol/Ipratropium (Duoneb 3.0-0.5 Mg/3 Ml) 3 ml INH DAILY [facility] Last Admin: 07/25/17 08:13 Dose: 3 ml Arformoterol Tartrate (Brovana) 15 mcg INH BID [facility] Last Admin: 07/25/17 08:14 Dose: 15 mcg Aspirin (Halfprin) 81 mg PO DAILY [facility] Last Admin: 07/25/17 07:47 Dose: 81 mg Budesonide (Pulmicort) 0.5 mg INH BID [facility] Last Admin: 07/25/17 08:14 Dose: 0.5 mg Calcium Carbonate/Glycine (Calcium Carbonate) 600 mg PO BIDMEALS [facility] Last Admin: 07/25/17 07:47 Dose: 600 mg Cholecalciferol (Vitamin D3) 2,000 unit PO DAILY [facility] Last Admin: 07/25/17 07:49 Dose: 2,000 unit Digoxin (Lanoxin) 125 mcg PO DAILY [facility] Last Admin: 07/25/17 08:12 Dose: 125 mcg Diphenhydramine HCl (Benadryl) 25 mg PO BEDTIME PRN PRN Reason: Insomnia Last Admin: 07/24/17 20:22 Dose: 25 mg Furosemide (Lasix) 40 mg PO DAILY [facility] Last Admin: 07/25/17 07:47 Dose: 40 mg Insulin Aspart (Novolog) 0 unit SUBCUT TID@0800,1200,1700 [facility] PRN Reason: Protocol Last Admin: 07/25/17 08:12 Dose: Not Given Levetiracetam (Keppra) 750 mg PO BID [facility] Last Admin: 07/25/17 07:48 Dose: 750 mg Levothyroxine Sodium (Levothyroxine) 25 mcg PO ACBREAKFAST [facility] Last Admin: 07/25/17 07:47 Dose: 25 mcg Multivitamins/Minerals (Thera M Plus) 1 tab PO DAILY [facility] Last Admin: 07/25/17 07:49 Dose: 1 tab Nystatin (Nystop) 0 gm TOP QID [facility] Last Admin: 07/25/17 08:13 Dose: 1 applic Potassium Chloride (Klor-Con 10) 5 meq PO DAILY [facility] Last Admin: 07/25/17 07:48 Dose: 5 meq Quetiapine Fumarate (Seroquel) 25 mg PO BEDTIME [facility] Last Admin: 07/24/17 19:57 Dose: 25 mg Ranitidine HCl (Zantac) 150 mg PO BEDTIME [facility] Last Admin: 07/24/17 19:57 Dose: 150 mg Tamsulosin HCl (Flomax) 0.8 mg PO PCBREAKFAST [facility] Discontinued Medications Diphenhydramine HCl (Benadryl) 50 mg PO BEDTIME PRN PRN Reason: Insomnia Diphenhydramine HCl (Benadryl) 25 mg PO BEDTIME PRN PRN Reason: Insomnia Last Admin: 07/19/17 20:56 Dose: 25 mg Diphenhydramine HCl (Benadryl) Confirm Administered Dose 25 mg .ROUTE .STK-MED ONE Stop: 07/19/17 02:35 Last Admin: 07/19/17 03:33 Dose: Not Given Insulin Aspart (Novolog) 0 - 10 unit SUBCUT TIDAC PRN PRN Reason: Blood Glucose Last Admin: 07/17/17 17:30 Dose: 2 units Insulin Aspart (Novolog) 0 unit SUBCUT TIDAC PRN; Protocol PRN Reason: Blood Glucose Insulin Aspart (Novolog) 0 unit SUBCUT TIDAC [facility] PRN Reason: Protocol Last Admin: 07/23/17 18:33 Dose: 1 unit Tamsulosin HCl (Flomax) 0.4 mg PO PCBREAKFAST [facility] Last Admin: 07/24/17 18:15 Dose: 0.4 mg Tuberculin PPD (Aplisol) 5 unit IDERM ONETIME ONE Stop: 07/17/17 13:40 Last Admin: 07/19/17 04:07 Dose: Not Given Tuberculin PPD (Aplisol) 5 unit IDERM ONETIME ONE Stop: 07/19/17 08:01 Last Admin: 07/19/17 16:56 Dose: 5 unit *Q Meaningful Use (DIS) - VTE *Q VTE Criteria *Q: - Stroke *Q Stroke Criteria *Q: - AMI *Q AMI Criteria *Q:
== END 2017-07-25 13:08 | disposition home or self-care (01) | DRG 948 ==
LOC: UNDOADMIN 09:47 → LB.MS 09:47 → UNDOADMIN 11:33 → LB.MS 11:33
PROVIDERS: ADMIT Family Medicine; ATTEND Family Medicine
DX: R53.1 Weakness (principal); F03.91 Unspecified dementia, unspecified severity, with behavioral disturbance; F05 Delirium due to known physiological condition; F01.51 Vascular dementia, unspecified severity, with behavioral disturbance; R45.1 Restlessness and agitation; W19.XXXD Unspecified fall, subsequent encounter; I50.9 Heart failure, unspecified; I25.10 Atherosclerotic heart disease of native coronary artery without angina pectoris; E11.9 Type 2 diabetes mellitus without complications; Z79.4 Long term (current) use of insulin; Z85.820 Personal history of malignant melanoma of skin; R33.9 Retention of urine, unspecified; Z11.1 Encounter for screening for respiratory tuberculosis; G40.909 Epilepsy, unspecified, not intractable, without status epilepticus; M54.9 Dorsalgia, unspecified; G89.29 Other chronic pain; Z87.440 Personal history of urinary (tract) infections; Z87.01 Personal history of pneumonia (recurrent); H91.90 Unspecified hearing loss, unspecified ear; Z79.82 Long term (current) use of aspirin; D64.9 Anemia, unspecified
CPT/HCPCS: 51798; 82962; 86580; 97116-GP; 97161-GP; 97165-GO; 97530-GO; 97530-GP; A9270-GY; J7605; J7620; J7626

== ENCOUNTER 2017-07-28 22:21 | Emergency (ER) | payer MEDICARE, BC ==
--- NOTE | 2017-07-28 22:29 | EDM.PDOC ---
ED HPI GENERAL MEDICAL PROBLEM - General Chief Complaint: Genitourinary Problem Stated Complaint: GREGORY NOT DRAINING Time Seen by Provider: 07/28/17 22:21 Source of Information: Reports: Patient, RN History Limitations: Reports: No Limitations - History of Present Illness INITIAL COMMENTS - FREE TEXT/NARRATIVE: 86 yr male presents with indwelling gregory catheter. Nurse reports pt was discharged to home with catheter and has been having difficulty with draining urine from catheter. States pt has a urology consult for urinary retention. - Related Data Allergies Allergy/AdvReac Type Severity Reaction Status Date / Time No Known Allergies Allergy Verified 07/17/17 12:02 Home Meds: Home Meds Multivitamin [Multi-Vitamin Daily] 1 tab PO DAILY 08/10/14 [History] Ranitidine HCl 150 mg PO BEDTIME 08/10/14 [History] Levothyroxine 25 mcg PO ACBREAKFAST tablet 10/03/14 [Rx] levETIRAcetam [Keppra] 750 mg PO BID tablet 10/03/14 [Rx] Cholecalciferol (Vitamin D3) [Vitamin D3] 2,000 unit PO DAILY cap 11/04/14 [Rx] Insulin Aspart [NovoLOG] 0 - 10 unit SUBCUT TIDAC PRN 12/10/14 [History] Aspirin [[place] Aspirin] 81 mg PO DAILY 10/07/16 [History] Digoxin 125 mcg PO DAILY 10/07/16 [History] Arformoterol [Brovana] 1 inh INH BID 07/14/17 [History] Budesonide [Pulmicort] 0.5 mg IH BID 07/14/17 [History] Furosemide 40 mg PO DAILY 07/14/17 [History] Ipratropium/Albuterol Sulfate [Iprat-Albut 0.5-3(2.5) mg/3 ml] 3 ml IH DAILY 05/19 [History] Potassium Chloride [Klor-Con 10] 0.5 tab PO DAILY 07/14/17 [History] Acetaminophen [Tylenol] 325 mg PO Q4H PRN tablet 07/17/17 [Rx] Insulin Aspart [NovoLOG] 0 unit SUBCUT WITHMEALSANDBED pen 07/17/17 [Rx] QUEtiapine [SEROquel] 25 mg PO BEDTIME tablet 07/17/17 [Rx] Calcium Carbonate 600 mg PO BIDMEALS tablet 07/25/17 [Rx] diphenhydrAMINE [Benadryl] 25 mg PO BEDTIME PRN cap 07/25/17 [Rx] Past Medical History HEENT History: Reports: Cataract, Hard of Hearing Cardiovascular History: Reports: Afib, CAD, Heart Failure, High Cholesterol, [place] Respiratory History: Reports: Pneumonia, Recurrent Gastrointestinal History: Reports: Other (See Below) Other Gastrointestinal History: Frequent bowel movements Genitourinary History: Reports: Acute Renal Failure, Renal Disease, UTI, Recurrent Musculoskeletal History: Reports: Back Pain, Chronic Neurological History: Reports: Seizure Other Neuro History: hx of 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 frequent skin cancers - Infectious Disease History Infectious Disease History: Reports: Chicken Pox - Past Surgical History HEENT Surgical History: Reports: Cataract Surgery GI Surgical History: Reports: Hernia Repair/Other Social & Family History - Family History Family Medical History: Noncontributory - Tobacco Use Smoking Status *Q: Never Smoker Second Hand Smoke Exposure: No - Caffeine Use Caffeine Use: Reports: None - Alcohol Use Days Per Week of Alcohol Use: 0 - Recreational Drug Use Recreational Drug Use: No - Living Situation & Occupation Living situation: Reports: Occupation: Retired ED ROS GENERAL - Review of Systems Review Of Systems: See Below Constitutional: Reports: Weakness HEENT: Reports: No Symptoms Respiratory: Reports: No Symptoms Cardiovascular: Reports: No Symptoms GI/Abdominal: Reports: Constipation, Decreased Appetite, Stool Incontinence, Other (wearing depends) : Reports: Urinary Retention, Other (gregory catheter) Musculoskeletal: Reports: Other (weakness) Skin: Reports: No Symptoms Neurological: Reports: No Symptoms ED EXAM, RENAL/ - Physical Exam Exam: See Below Exam Limited By: No Limitations General Appearance: Alert, No Apparent Distress Head: Atraumatic, Normocephalic Neck: Supple, Non-Tender Respiratory/Chest: No Respiratory Distress, Lungs Clear, Normal Breath Sounds Cardiovascular: Regular Rate, Rhythm, No Edema GI/Abdominal: Soft, Non-Tender (Male) Exam: Other (bright red colored drainage in gregory catheter, reports some tugging to this at home). No: Suprapubic Fullness Extremities: No: Pedal Edema Neurological: Alert, Normal Cognition Psychiatric: Normal Affect, Normal Mood Skin Exam: Warm, Dry Course - Re-Assessments/Exams Free Text/Narrative Re-Assessment/Exam: 07/28/17 22:53 Indwelling gregory catheter with trauma at home with trying to get into bed. states bedroom is small and nowhere to hang catheter, except on walker. reports incontinence of stool and use of depends. [facility] Pt to have a urology consult. Gregory catheter irrigates easily with Nacl and clear fluid noted to drainage bag with irrigation. Pt drinking water and states no pain. Discharge information on gregory catheter care to be given and prevent trauma and prevent tugging of catheter. Pt to f/U with PCP and referral to urology. Departure - Departure Time of Disposition: 22:56 Disposition: Home, Self-Care 01 Condition: Good Clinical Impression: Retention of urine, Indwelling Gregory catheter present - Discharge Information Instructions: Gregory Catheter Care, Adult Referrals: PCP,None [Ordering Only Provider] - Forms: ED Department Discharge
[2017-07-29 01:31] VITALS: BP 139/70
== END 2017-07-28 23:00 | disposition home or self-care (01) ==
LOC: LB.ED 22:21
DX: R33.9 Retention of urine, unspecified (principal); I50.9 Heart failure, unspecified; I25.2 Old myocardial infarction; E11.9 Type 2 diabetes mellitus without complications; E03.9 Hypothyroidism, unspecified; Z79.899 Other long term (current) drug therapy; Z79.82 Long term (current) use of aspirin
CPT/HCPCS: 99283

== ENCOUNTER 2017-07-29 12:34 | Inpatient (IN) | payer SELFPAY ==
[2017-07-29] MEDS ORDERED: Acetaminophen 325 MG Tab PO PRN (14:14)
[2017-07-29] MEDS ORDERED: Insulin Aspart 100 Units/ML 3 ML Pen SUBCUT PRN (14:14)
[2017-07-29] MEDS: LEVETIRACETAM 750 MG PO SCH (19:52)
[2017-07-29] MEDS ORDERED: levETIRAcetam 500 MG Tab PO SCH (20:00)
[2017-07-30] MEDS: Levothyroxine 25 MCG Tab PO SCH (06:34)
[2017-07-30] MEDS: Aspirin 81 MG Tab.EC PO SCH (07:39)
[2017-07-30] MEDS: Potassium Chloride 20 MEQ Tab.ER PO SCH (07:39)
[2017-07-30] MEDS: Tamsulosin 0.4 MG Cap.ER PO SCH (07:39)
[2017-07-30] MEDS: Furosemide 40 MG Tab PO SCH (07:40)
[2017-07-30] MEDS: Digoxin 125 MCG Tab PO SCH (07:40)
[2017-07-30] MEDS: LEVETIRACETAM 750 MG PO SCH ×2 (07:40→19:37)
[2017-07-30] MEDS ORDERED: Albuterol/Ipratropium 3.0-0.5 MG/3 ML Neb Soln INH SCH (08:00)
[2017-07-30] MEDS ORDERED: Cholecalciferol (Vitamin D3) 2,000 Unit Cap PO SCH (08:00)
[2017-07-30] MEDS: Arformoterol 15 MCG/2 ML Neb Soln INH SCH (11:35)
[2017-07-30] MEDS ORDERED: diphenhydrAMINE 25 MG Cap PO PRN (11:38)
[2017-07-30] MEDS: Insulin Aspart 100 Units/ML 3 ML Pen SUBCUT SCH ×2 (11:55→16:45)
[2017-07-30] MEDS ORDERED: Calcium Carbonate 600 MG Tab PO SCH (17:00)
[2017-07-30] MEDS ORDERED: levETIRAcetam 500 MG Tab ONE (19:27)
[2017-07-30] MEDS ORDERED: BUDESONIDE 0.5 MG/2 ML INH SCH (20:00)
[2017-07-30] MEDS: BUDESONIDE 0.5 MG/2 ML INH SCH (22:02)
[2017-07-31] MEDS: Levothyroxine 25 MCG Tab PO SCH (06:24)
[2017-07-31] MEDS: Tamsulosin 0.4 MG Cap.ER PO SCH (07:48)
[2017-07-31] MEDS: Digoxin 125 MCG Tab PO SCH (07:48)
[2017-07-31] MEDS: LEVETIRACETAM 750 MG PO SCH ×2 (07:49→20:14)
[2017-07-31] MEDS: Potassium Chloride 20 MEQ Tab.ER PO SCH (07:50)
[2017-07-31] MEDS: Aspirin 81 MG Tab.EC PO SCH (07:50)
[2017-07-31] MEDS: Furosemide 40 MG Tab PO SCH (07:51)
[2017-07-31] MEDS: BUDESONIDE 0.5 MG/2 ML INH SCH ×2 (07:52→20:15)
[2017-07-31] MEDS: Insulin Aspart 100 Units/ML 3 ML Pen SUBCUT SCH ×3 (08:56→16:54)
[2017-08-01] MEDS: Levothyroxine 25 MCG Tab PO SCH (06:09)
[2017-08-01] MEDS: Tamsulosin 0.4 MG Cap.ER PO SCH (07:54)
[2017-08-01] MEDS: Aspirin 81 MG Tab.EC PO SCH (07:54)
[2017-08-01] MEDS: Potassium Chloride 20 MEQ Tab.ER PO SCH (07:55)
[2017-08-01] MEDS: Digoxin 125 MCG Tab PO SCH (07:55)
[2017-08-01] MEDS: Furosemide 40 MG Tab PO SCH (07:58)
[2017-08-01] MEDS: LEVETIRACETAM 750 MG PO SCH ×2 (07:59→19:12)
[2017-08-01] MEDS: Insulin Aspart 100 Units/ML 3 ML Pen SUBCUT SCH ×3 (08:02→17:24)
[2017-08-01] MEDS: BUDESONIDE 0.5 MG/2 ML INH SCH ×2 (08:09→19:12)
[2017-08-02] MEDS: Levothyroxine 25 MCG Tab PO SCH (07:20)
[2017-08-02] MEDS: Tamsulosin 0.4 MG Cap.ER PO SCH (07:20)
[2017-08-02] MEDS: Aspirin 81 MG Tab.EC PO SCH (07:21)
[2017-08-02] MEDS: Potassium Chloride 20 MEQ Tab.ER PO SCH (07:21)
[2017-08-02] MEDS: Furosemide 40 MG Tab PO SCH (07:28)
[2017-08-02] MEDS: Digoxin 125 MCG Tab PO SCH ×2 (07:28→11:49)
[2017-08-02] MEDS: LEVETIRACETAM 750 MG PO SCH ×2 (07:29→19:08)
[2017-08-02] MEDS: BUDESONIDE 0.5 MG/2 ML INH SCH ×2 (07:29→19:08)
[2017-08-02] MEDS: Insulin Aspart 100 Units/ML 3 ML Pen SUBCUT SCH ×3 (08:17→17:12)
[2017-08-02] MEDS ORDERED: Lidocaine 2% Jelly 5 ML Urojet ONE (16:54)
[2017-08-03] MEDS: Levothyroxine 25 MCG Tab PO SCH (07:37)
[2017-08-03] MEDS: Tamsulosin 0.4 MG Cap.ER PO SCH (07:38)
[2017-08-03] MEDS: Aspirin 81 MG Tab.EC PO SCH (07:38)
[2017-08-03] MEDS: Potassium Chloride 20 MEQ Tab.ER PO SCH (07:39)
[2017-08-03] MEDS: Digoxin 125 MCG Tab PO SCH (07:39)
[2017-08-03] MEDS: Furosemide 40 MG Tab PO SCH (07:40)
[2017-08-03] MEDS: LEVETIRACETAM 750 MG PO SCH ×2 (07:40→19:30)
[2017-08-03] MEDS: BUDESONIDE 0.5 MG/2 ML INH SCH ×2 (07:43→20:00)
[2017-08-03] MEDS: Insulin Aspart 100 Units/ML 3 ML Pen SUBCUT SCH ×3 (09:49→17:15)
[2017-08-04] MEDS: Levothyroxine 25 MCG Tab PO SCH (06:33)
[2017-08-04] MEDS: Insulin Aspart 100 Units/ML 3 ML Pen SUBCUT SCH ×3 (06:38→18:05)
[2017-08-04] MEDS: Digoxin 125 MCG Tab PO SCH (07:47)
[2017-08-04] MEDS: Tamsulosin 0.4 MG Cap.ER PO SCH (07:47)
[2017-08-04] MEDS: LEVETIRACETAM 750 MG PO SCH ×2 (07:48→20:50)
[2017-08-04] MEDS: Potassium Chloride 20 MEQ Tab.ER PO SCH (07:48)
[2017-08-04] MEDS: Aspirin 81 MG Tab.EC PO SCH (07:49)
[2017-08-04] MEDS: BUDESONIDE 0.5 MG/2 ML INH SCH ×2 (07:49→20:51)
[2017-08-04] MEDS: Furosemide 40 MG Tab PO SCH (07:49)
--- NOTE | 2017-08-05 04:46 | PCM.PN ---
- General Info Date of Service: 08/04/17 Subjective Update: This is an 86yo M who was recently placed into respite care for inability to void and bladder retention concerns. He was previously admitted for weakness, dementia, and altered mental status and fall and discharged home with family as they wanted him at home. Options at the time were for the patient to go to the care center which he has been admitted in the past. At the time of previous discharge the patient had improved to better than baseline. Functional Status: Reports: Pain Controlled, Tolerating Diet - Review of Systems General: Reports: Weakness HEENT: Reports: No Symptoms Pulmonary: Reports: No Symptoms Cardiovascular: Reports: No Symptoms Gastrointestinal: Reports: No Symptoms Genitourinary: Reports: Retention Musculoskeletal: Reports: No Symptoms Skin: Reports: No Symptoms Neurological: Reports: Confusion Psychiatric: Reports: No Symptoms - Patient Data Vitals - Most Recent: Last Vital Signs Temp 36.6 C 08/04/17 08:00 Pulse 101 H 08/04/17 08:00 Resp 16 08/04/17 08:00 BP 102/70 08/04/17 08:00 Pulse Ox 100 08/04/17 08:00 Weight - Most Recent: 58.649 kg I&O - Last 24 Hours: Intake & Output 08/04/17 08/04/17 08/05/17 14:59 22:59 06:59 Intake Total 720 720 Output Total 600 Balance 720 120 Lab Results Last 24 Hours: Laboratory Results - last 24 hr 08/04/17 Range/Units 05:35 POC Glucose 142 H (74-110) mg/dL Med Orders - Current: Current Medications Acetaminophen (Tylenol) 325 mg PO Q4H PRN PRN Reason: fever, pain Albuterol/Ipratropium (Duoneb 3.0-0.5 Mg/3 Ml) 3 ml INH DAILY [facility] Last Admin: 07/30/17 11:35 Dose: Not Given Arformoterol Tartrate (Brovana) 15 mcg INH BID [facility] Last Admin: 07/30/17 11:35 Dose: Not Given Aspirin (Halfprin) 81 mg PO DAILY [facility] Last Admin: 08/04/17 07:49 Dose: 81 mg Budesonide (Pulmicort) 0.5 mg INH BID [facility] Last Admin: 08/04/17 20:51 Dose: 0.5 mg Calcium Carbonate/Glycine (Calcium Carbonate) 600 mg PO BIDMEALS [facility] Cholecalciferol (Vitamin D3) 2,000 unit PO DAILY [facility] Last Admin: 07/30/17 11:42 Dose: Not Given Digoxin (Lanoxin) 125 mcg PO DAILY [facility] Last Admin: 08/04/17 07:47 Dose: 125 mcg Diphenhydramine HCl (Benadryl) 25 mg PO BEDTIME PRN PRN Reason: Insomnia Furosemide (Lasix) 40 mg PO DAILY [facility] Last Admin: 08/04/17 07:49 Dose: 40 mg Insulin Aspart (Novolog) 0 - 10 unit SUBCUT TIDAC [facility] Last Admin: 08/04/17 18:05 Dose: 5 units Levothyroxine Sodium (Levothyroxine) 25 mcg PO ACBREAKFAST [facility] Last Admin: 08/04/17 06:33 Dose: 25 mcg Levetiracetam 750mg (Tablets) 1 each PO BID [facility] Last Admin: 08/04/17 20:50 Dose: 1 each Potassium Chloride (Klor-Con M20) 10 meq PO DAILY [facility] Last Admin: 08/04/17 07:48 Dose: 10 meq Ranitidine HCl (Zantac) 150 mg PO BEDTIME [facility] Last Admin: 08/04/17 20:50 Dose: 150 mg Tamsulosin HCl (Flomax) 0.4 mg PO DAILY [facility] Last Admin: 08/04/17 07:47 Dose: 0.4 mg Discontinued Medications Budesonide (Pulmicort) 0.5 mg INH BID [facility] Insulin Aspart (Novolog) 0 - 10 unit SUBCUT TIDAC PRN PRN Reason: Blood Glucose Last Admin: 07/29/17 17:34 Dose: 5 units Levetiracetam (Keppra) Confirm Administered Dose 1,000 mg .ROUTE .STK-MED ONE Stop: 07/30/17 19:28 Last Admin: 07/30/17 19:32 Dose: Not Given Lidocaine HCl (Xylocaine 2% Jelly) Confirm Administered Dose 5 ml .ROUTE .STK- MED ONE Stop: 08/02/17 16:55 Last Admin: 08/02/17 17:11 Dose: 5 ml - Exam General: Alert, Cooperative HEENT: Pupils Equal, Pupils Reactive, EOMI Neck: Supple Lungs: Clear to Auscultation, Normal Respiratory Effort Cardiovascular: Regular Rate, Regular Rhythm Back Exam: Normal Inspection Extremities: Normal Inspection Neurological: No New Focal Deficit Psy/Mental Status: Alert, Normal Affect, Normal Mood - Problem List & Annotations (1) Altered mental status SNOMED Code(s): 233085479 Code(s): R41.82 - ALTERED MENTAL STATUS, UNSPECIFIED Status: Suspected Current Visit: Yes Qualifiers: Altered mental status type: disorientation Qualified Code(s): R41.0 - Disorientation, unspecified (2) Neurogenic urinary bladder disorder SNOMED Code(s): 028810510 Code(s): N31.9 - NEUROMUSCULAR DYSFUNCTION OF BLADDER, UNSPECIFIED Status: Chronic Priority: High Current Visit: Yes (3) Retention of urine SNOMED Code(s): 415501013 Code(s): R33.9 - RETENTION OF URINE, UNSPECIFIED Status: Acute Priority: High Current Visit: Yes - Problem List Review Problem List Initiated/Reviewed/Updated: Yes - Plan Plan:: Patient is stable. Family were unable to care for patient and he was placed back into respite care. We will consider placement tomorrow.
[2017-08-05 07:21] VITALS: BP 117/62
[2017-08-05] MEDS: Levothyroxine 25 MCG Tab PO SCH (07:48)
[2017-08-05] MEDS: Tamsulosin 0.4 MG Cap.ER PO SCH (07:48)
[2017-08-05] MEDS: Aspirin 81 MG Tab.EC PO SCH (07:48)
[2017-08-05] MEDS: Digoxin 125 MCG Tab PO SCH (07:49)
[2017-08-05] MEDS: Furosemide 40 MG Tab PO SCH (07:49)
[2017-08-05] MEDS: Potassium Chloride 20 MEQ Tab.ER PO SCH (07:49)
[2017-08-05] MEDS: BUDESONIDE 0.5 MG/2 ML INH SCH (07:50)
[2017-08-05] MEDS: LEVETIRACETAM 750 MG PO SCH (07:50)
[2017-08-05] MEDS ORDERED: Insulin Aspart 100 Units/ML 3 ML Pen SUBCUT SCH ×3 (08:00→11:00)
--- NOTE | 2017-08-05 10:06 | PCM.DCSUM1 ---
Discharge Summary - Discharge Data Discharge Date: 08/05/17 Discharge Disposition: DC[facility] to [facility] Condition: Good - Discharge Diagnosis/Problem(s) (1) Altered mental status SNOMED Code(s): 234211493 ICD Code: R41.82 - ALTERED MENTAL STATUS, UNSPECIFIED Status: Suspected Current Visit: Yes Qualifiers: Altered mental status type: disorientation Qualified Code(s): R41.0 - Disorientation, unspecified (2) Neurogenic urinary bladder disorder SNOMED Code(s): 391684014 ICD Code: N31.9 - NEUROMUSCULAR DYSFUNCTION OF BLADDER, UNSPECIFIED Status : Chronic Priority: High Current Visit: Yes (3) Retention of urine SNOMED Code(s): 974825886 ICD Code: R33.9 - RETENTION OF URINE, UNSPECIFIED Status: Acute Priority : High Current Visit: Yes (4) Debility SNOMED Code(s): 91065228 ICD Code: R53.81 - OTHER MALAISE Status: Acute Current Visit: Yes - Patient Instructions Diet: Usual Diet as Tolerated Activity: As Tolerated Driving: Do Not Drive - Discharge Plan Home Medications: Home Meds Multivitamin [Multi-Vitamin Daily] 1 tab PO DAILY 08/10/14 [History] Ranitidine HCl 150 mg PO BEDTIME 08/10/14 [History] Levothyroxine 25 mcg PO ACBREAKFAST tablet 10/03/14 [Rx] levETIRAcetam [Keppra] 750 mg PO BID tablet 10/03/14 [Rx] Cholecalciferol (Vitamin D3) [Vitamin D3] 2,000 unit PO DAILY cap 11/04/14 [Rx] Insulin Aspart [NovoLOG] 0 - 10 unit SUBCUT TIDAC PRN 12/10/14 [History] Aspirin [[place] Aspirin] 81 mg PO DAILY 10/07/16 [History] Digoxin 125 mcg PO DAILY 10/07/16 [History] Arformoterol [Brovana] 1 inh INH BID 07/14/17 [History] Budesonide [Pulmicort] 0.5 mg IH BID 07/14/17 [History] Furosemide 40 mg PO DAILY 07/14/17 [History] Ipratropium/Albuterol Sulfate [Iprat-Albut 0.5-3(2.5) mg/3 ml] 3 ml IH DAILY 05/19 [History] Potassium Chloride [Klor-Con 10] 0.5 tab PO DAILY 07/14/17 [History] Acetaminophen [Tylenol] 325 mg PO Q4H PRN tablet 07/17/17 [Rx] Insulin Aspart [NovoLOG] 0 unit SUBCUT WITHMEALSANDBED pen 07/17/17 [Rx] QUEtiapine [SEROquel] 25 mg PO BEDTIME tablet 07/17/17 [Rx] Calcium Carbonate 600 mg PO BIDMEALS tablet 07/25/17 [Rx] Levothyroxine 25 mcg PO ACBREAKFAST tablet 08/05/17 [Rx] Non-Formulary Medication [NF Drug] 1 each PO BID each 08/05/17 [Rx] Potassium Chloride [Klor-Con M20] 10 meq PO DAILY tab.er 08/05/17 [Rx] Tamsulosin [Flomax] 0.4 mg PO DAILY cap.er 08/05/17 [Rx] - Discharge Summary/Plan Comment DC Time >30 min.: Yes Discharge Summary/Plan Comment: Patient and family counseled on discharge to care center for [facility] care and management. Meds reconciled through [place]. Family in agreement with current plan of care. - Patient Data Vitals - Most Recent: Last Vital Signs Temp 36.6 C 08/05/17 07:20 Pulse 64 08/05/17 07:49 Resp 16 08/05/17 07:20 BP 117/62 08/05/17 07:20 Pulse Ox 100 08/05/17 07:20 Weight - Most Recent: 58.649 kg I&O - Last 24 hours: Intake & Output 08/04/17 08/05/17 08/05/17 22:59 06:59 14:59 Intake Total 720 80 240 Output Total 600 450 Balance 120 -370 240 Lab Results - Last 24 hrs: Laboratory Results - last 24 hr 08/05/17 Range/Units 07:25 POC Glucose 123 H (74-110) mg/dL Med Orders - Current: Current Medications Acetaminophen (Tylenol) 325 mg PO Q4H PRN PRN Reason: fever, pain Albuterol/Ipratropium (Duoneb 3.0-0.5 Mg/3 Ml) 3 ml INH DAILY [facility] Last Admin: 07/30/17 11:35 Dose: Not Given Arformoterol Tartrate (Brovana) 15 mcg INH BID [facility] Last Admin: 07/30/17 11:35 Dose: Not Given Aspirin (Halfprin) 81 mg PO DAILY [facility] Last Admin: 08/05/17 07:48 Dose: 81 mg Budesonide (Pulmicort) 0.5 mg INH BID [facility] Last Admin: 08/05/17 07:50 Dose: 0.5 mg Calcium Carbonate/Glycine (Calcium Carbonate) 600 mg PO BIDMEALS [facility] Cholecalciferol (Vitamin D3) 2,000 unit PO DAILY [facility] Last Admin: 07/30/17 11:42 Dose: Not Given Digoxin (Lanoxin) 125 mcg PO DAILY [facility] Last Admin: 08/05/17 07:49 Dose: 125 mcg Diphenhydramine HCl (Benadryl) 25 mg PO BEDTIME PRN PRN Reason: Insomnia Furosemide (Lasix) 40 mg PO DAILY [facility] Last Admin: 08/05/17 07:49 Dose: 40 mg Insulin Aspart (Novolog) 0 - 10 unit SUBCUT TID@0800,1200,1700 [facility] Last Admin: 08/05/17 08:40 Dose: 10 units Levothyroxine Sodium (Levothyroxine) 25 mcg PO ACBREAKFAST [facility] Last Admin: 08/05/17 07:48 Dose: 25 mcg Levetiracetam 750mg (Tablets) 1 each PO BID [facility] Last Admin: 08/05/17 07:50 Dose: 1 each Potassium Chloride (Klor-Con M20) 10 meq PO DAILY [facility] Last Admin: 08/05/17 07:49 Dose: 10 meq Ranitidine HCl (Zantac) 150 mg PO BEDTIME [facility] Last Admin: 08/04/17 20:50 Dose: 150 mg Tamsulosin HCl (Flomax) 0.4 mg PO DAILY [facility] Last Admin: 08/05/17 07:48 Dose: 0.4 mg Discontinued Medications Budesonide (Pulmicort) 0.5 mg INH BID [facility] Insulin Aspart (Novolog) 0 - 10 unit SUBCUT TIDAC PRN PRN Reason: Blood Glucose Last Admin: 07/29/17 17:34 Dose: 5 units Insulin Aspart (Novolog) 0 - 10 unit SUBCUT TIDAC [facility] Last Admin: 08/04/17 18:05 Dose: 5 units Levetiracetam (Keppra) Confirm Administered Dose 1,000 mg .ROUTE .STK-MED ONE Stop: 07/30/17 19:28 Last Admin: 07/30/17 19:32 Dose: Not Given Lidocaine HCl (Xylocaine 2% Jelly) Confirm Administered Dose 5 ml .ROUTE .[facility] [place] ONE Stop: 08/02/17 16:55 Last Admin: 08/02/17 17:11 Dose: 5 ml *Q Meaningful Use (DIS) - VTE *Q VTE Criteria *Q: - Stroke *Q Stroke Criteria *Q: - AMI *Q AMI Criteria *Q:
== END 2017-08-05 11:00 | DRG 951 ==
LOC: LB.MS 12:34 → UNDOADMIN 12:34 → LB.MS 14:10
PROVIDERS: ADMIT Family Medicine; ATTEND Family Medicine
DX: Z75.5 Holiday relief care (principal); R41.0 Disorientation, unspecified; F03.90 Unspecified dementia, unspecified severity, without behavioral disturbance, psychotic disturbance, mood disturbance, and anxiety; N31.9 Neuromuscular dysfunction of bladder, unspecified; R33.9 Retention of urine, unspecified; R53.81 Other malaise; Z66 Do not resuscitate; Z79.82 Long term (current) use of aspirin; Z79.4 Long term (current) use of insulin; Z46.6 Encounter for fitting and adjustment of urinary device
CPT/HCPCS: 82962; A9270-GY; J7626

== ENCOUNTER 2017-08-22 14:07 | Emergency (ER) | payer MEDICARE, BC ==
--- NOTE | 2017-08-22 15:21 | EDM.PDOC ---
ED HPI GENERAL MEDICAL PROBLEM - General Chief Complaint: Head Injury Stated Complaint: FALL; FACIAL INJURIES Time Seen by Provider: 08/22/17 14:15 Source of Information: Reports: Patient, RN, Other ([facility] staff) History Limitations: Reports: Other (Pt responds, not good historian) - History of Present Illness INITIAL COMMENTS - FREE TEXT/NARRATIVE: 86 yr male presents with laceration above left eye. Pt reports he fell, not easily and hit his head. [facility] staff report pt fell in bathroom and hit head. State pt wasn't unconscious. Pt states headache to area. - Related Data Allergies Allergy/AdvReac Type Severity Reaction Status Date / Time No Known Allergies Allergy Verified 07/29/17 03:10 Home Meds: Home Meds Multivitamin [Multi-Vitamin Daily] 1 tab PO DAILY 08/10/14 [History] Ranitidine HCl 150 mg PO BEDTIME 08/10/14 [History] Levothyroxine 25 mcg PO ACBREAKFAST tablet 10/03/14 [Rx] levETIRAcetam [Keppra] 750 mg PO BID tablet 10/03/14 [Rx] Cholecalciferol (Vitamin D3) [Vitamin D3] 2,000 unit PO DAILY cap 11/04/14 [Rx] Insulin Aspart [NovoLOG] 0 - 10 unit SUBCUT TIDAC PRN 12/10/14 [History] Aspirin [[place] Aspirin] 81 mg PO DAILY 10/07/16 [History] Digoxin 125 mcg PO DAILY 10/07/16 [History] Arformoterol [Brovana] 1 inh INH BID 07/14/17 [History] Budesonide [Pulmicort] 0.5 mg IH BID 07/14/17 [History] Furosemide 40 mg PO DAILY 07/14/17 [History] Ipratropium/Albuterol Sulfate [Iprat-Albut 0.5-3(2.5) mg/3 ml] 3 ml IH DAILY 05/19 [History] Potassium Chloride [Klor-Con 10] 0.5 tab PO DAILY 07/14/17 [History] Acetaminophen [Tylenol] 325 mg PO Q4H PRN tablet 07/17/17 [Rx] Insulin Aspart [NovoLOG] 0 unit SUBCUT WITHMEALSANDBED pen 07/17/17 [Rx] QUEtiapine [SEROquel] 25 mg PO BEDTIME tablet 07/17/17 [Rx] Calcium Carbonate 600 mg PO BIDMEALS tablet 07/25/17 [Rx] Levothyroxine 25 mcg PO ACBREAKFAST tablet 08/05/17 [Rx] Non-Formulary Medication [NF Drug] 1 each PO BID each 08/05/17 [Rx] Potassium Chloride [Klor-Con M20] 10 meq PO DAILY tab.er 08/05/17 [Rx] Tamsulosin [Flomax] 0.4 mg PO DAILY cap.er 08/05/17 [Rx] Past Medical History HEENT History: Reports: Cataract, Hard of Hearing Cardiovascular History: Reports: Afib, CAD, Heart Failure, High Cholesterol, [place] Respiratory History: Reports: Pneumonia, Recurrent Gastrointestinal History: Reports: Other (See Below) Other Gastrointestinal History: Frequent bowel movements Genitourinary History: Reports: Acute Renal Failure, Renal Disease, UTI, Recurrent Musculoskeletal History: Reports: Back Pain, Chronic Neurological History: Reports: Seizure Other Neuro History: hx of 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 frequent skin cancers - Infectious Disease History Infectious Disease History: Reports: Chicken Pox - Past Surgical History HEENT Surgical History: Reports: Cataract Surgery Cardiovascular Surgical History: Reports: None Respiratory Surgical History: Reports: None GI Surgical History: Reports: Hernia Repair/Other Male Surgical History: Reports: None Neurological Surgical History: Reports: None Musculoskeletal Surgical History: Reports: None Oncologic Surgical History: Reports: Other (See Below) Other Oncologic Surgeries/Procedures: skin cancer removal Dermatological Surgical History: Reports: None Social & Family History - Family History Family Medical History: Noncontributory - Tobacco Use Smoking Status *Q: Never Smoker Second Hand Smoke Exposure: No - Caffeine Use Caffeine Use: Reports: None - Alcohol Use Days Per Week of Alcohol Use: 0 - Recreational Drug Use Recreational Drug Use: No - Living Situation & Occupation Living situation: Reports: Occupation: Retired ED ROS GENERAL - Review of Systems Review Of Systems: See Below Constitutional: Reports: No Symptoms HEENT: Denies: Eye Discharge, Eye Pain, Vision Change Respiratory: Reports: No Symptoms Cardiovascular: Reports: No Symptoms Skin: Reports: Other (cut above left eye) Neurological: Reports: Headache ED EXAM, HEAD INJURY - Physical Exam Exam: See Below Exam Limited By: No Limitations General Appearance: Alert, No Apparent Distress Head: Facial Lacerations (laceration above left eye in line of eyebrow) Nexus Criteria: No: Altered Level of Consciousness Eyes: Bilateral Eye: Other (No vision changes.) Ears: Normal External Exam, Hearing Loss Nose: Normal Inspection Throat/Mouth: Normal Lips, Normal Teeth, Normal Voice, No Airway Compromise Respiratory: No Respiratory Distress Neurologic: Alert, Normal Mood/Affect, Other (sitting in wheelchair and appropriate in discussion) Course - Re-Assessments/Exams Free Text/Narrative Re-Assessment/Exam: 08/22/17 15:23 LE 14:[address] Parrish, states with deep laceration and jagged edge of wound, suture to area is indicated. Lidocaine w epinenephrine used to assist with pain. Pt tolerated well and states no pain to needle touch. Using aseptic technique and sterile gloves and sterile supplies, Dr. Parrish cleansed area with betadine and saline, 4-0 running suture used to area. Edges approximated well. Pt states no pain with suture. Antibiotic oint applied and Pressure dressing applied, Recommend keeping area dry and clean for 1 week and then remove suture. May sponge bath, but no shower and no whirlpool bath. May change dressing in am. Apply ice to area for 48 hr. Departure - Departure Time of Disposition: 14:40 Disposition: DC/Tfer to [facility] Condition: Good Clinical Impression: Forehead laceration - Discharge Information Instructions: Laceration Care, Adult Referrals: Maykel De Paz MD [Primary Care Provider] - Forms: ED Department Discharge Care Plan Goals: Keep clean and dry x 48 hours. No bath or shower for 7 days. In 1 week return to clinic to have sutures removed. Apply cold pack to area to reduce edema 20 minutes of hour 3 to 4 x day. Leave pressure dressing on for today. Can change if needed but keep area covered to prevent patient from scratching area
[2017-08-22 15:32] VITALS: BP 149/70
== END 2017-08-22 15:20 ==
LOC: LB.ED 14:07
DX: S01.81XA Laceration without foreign body of other part of head, initial encounter (principal); E78.00 Pure hypercholesterolemia, unspecified; I25.2 Old myocardial infarction; I50.9 Heart failure, unspecified; E11.9 Type 2 diabetes mellitus without complications; E03.9 Hypothyroidism, unspecified; Z79.899 Other long term (current) drug therapy; Z79.4 Long term (current) use of insulin; W17.89XA Other fall from one level to another, initial encounter; W22.8XXA Striking against or struck by other objects, initial encounter; Y92.002 Bathroom of unspecified non-institutional (private) residence as the place of occurrence of the external cause
CPT/HCPCS: 12013; 99283-25

== ENCOUNTER 2017-08-25 17:01 | Emergency (ER) | payer MEDICARE, BC, MEDICAID ==
--- NOTE | 2017-08-25 17:51 | EDM.PDOC ---
ED HPI GENERAL MEDICAL PROBLEM - General Chief Complaint: Lower Extremity Injury/Pain Stated Complaint: right leg pain Time Seen by Provider: 08/25/17 17:01 Source of Information: Reports: Shelter Records, RN History Limitations: Reports: Altered Mental Status (pt will respond if given time to talk. responds slowly, makes decisions for him) - History of Present Illness INITIAL COMMENTS - FREE TEXT/NARRATIVE: 86 yr male presents with right hip pain. He had a fall in his home at [facility] on 01-22-18 and had a laceration above right eye, this was sutured with a running suture per Dr Parrish in the ER at [place]. Today pt notified staff of pain to his right leg. X-ray and CT completed of leg and pelvis with fracture to upper aspect of right femur, including degree of impaction involving the lateral subcapital region and a nondisplaced component medially. Contacted Dr Childs through direct connect system at [place], [place]. States possible to complete surgery tomorrow and transfer pt tonight if hospitalist acceptable to this. Pt to be sent by ambulance to [place], [place]. Pt is alert and responding , but slowly. States pain is minimal to right leg now. He is diabetic Type 2 and did have his Novolog 4 units this afternoon for a blood sugar of around 270. [facility] staff did notify family of pt status and transfer to [facility]. Pt has a hx of hypthyroidism, hypercholesterolemia, Atrial fibrillation, CHF, renal disease ( last Creatinine on 07-17-17 was 2.29, BUN of 28 and Est cr clr of 18.21 and lactic acid was 1.44), heart failure and COPD and dementia and elevated PSA. Pt does have a DNR on file. - Related Data Allergies Allergy/AdvReac Type Severity Reaction Status Date / Time No Known Allergies Allergy Verified 07/29/17 03:10 Home Meds: Home Meds Multivitamin [Multi-Vitamin Daily] 1 tab PO DAILY 08/10/14 [History] Ranitidine HCl 150 mg PO BEDTIME 08/10/14 [History] Levothyroxine 25 mcg PO ACBREAKFAST tablet 10/03/14 [Rx] levETIRAcetam [Keppra] 750 mg PO BID tablet 10/03/14 [Rx] Cholecalciferol (Vitamin D3) [Vitamin D3] 2,000 unit PO DAILY cap 11/04/14 [Rx] Insulin Aspart [NovoLOG] 0 - 10 unit SUBCUT TIDAC PRN 12/10/14 [History] Aspirin [[place] Aspirin] 81 mg PO DAILY 10/07/16 [History] Digoxin 125 mcg PO DAILY 10/07/16 [History] Arformoterol [Brovana] 1 inh INH BID 07/14/17 [History] Budesonide [Pulmicort] 0.5 mg IH BID 07/14/17 [History] Furosemide 40 mg PO DAILY 07/14/17 [History] Ipratropium/Albuterol Sulfate [Iprat-Albut 0.5-3(2.5) mg/3 ml] 3 ml IH DAILY 05/19 [History] Potassium Chloride [Klor-Con 10] 0.5 tab PO DAILY 07/14/17 [History] Acetaminophen [Tylenol] 325 mg PO Q4H PRN tablet 07/17/17 [Rx] Insulin Aspart [NovoLOG] 0 unit SUBCUT WITHMEALSANDBED pen 07/17/17 [Rx] QUEtiapine [SEROquel] 25 mg PO BEDTIME tablet 07/17/17 [Rx] Calcium Carbonate 600 mg PO BIDMEALS tablet 07/25/17 [Rx] Levothyroxine 25 mcg PO ACBREAKFAST tablet 08/05/17 [Rx] Non-Formulary Medication [NF Drug] 1 each PO BID each 08/05/17 [Rx] Potassium Chloride [Klor-Con M20] 10 meq PO DAILY tab.er 08/05/17 [Rx] Tamsulosin [Flomax] 0.4 mg PO DAILY cap.er 08/05/17 [Rx] Past Medical History HEENT History: Reports: Cataract, Hard of Hearing Cardiovascular History: Reports: Afib, CAD, Heart Failure, High Cholesterol, [place] Respiratory History: Reports: Pneumonia, Recurrent Gastrointestinal History: Reports: Other (See Below) Other Gastrointestinal History: Frequent bowel movements Genitourinary History: Reports: Acute Renal Failure, Renal Disease, UTI, Recurrent Musculoskeletal History: Reports: Back Pain, Chronic Neurological History: Reports: Seizure Other Neuro History: hx of seizures likely related to head injuries when he was younger Psychiatric History: Reports: Dementia, Other (See Below) Other Psychiatric History: worsening dementia Endocrine/Metabolic History: Reports: Diabetes, Type II, Hypothyroidism Hematologic History: Reports: Anemia Oncologic (Cancer) History: Reports: Other (See Below) Other Oncologic History: Facial Melanoma Dermatologic History: Reports: Other (See Below) Other Dermatologic History: large lump to rt side of face. frequent skin cancers - Infectious Disease History Infectious Disease History: Reports: Chicken Pox - Past Surgical History HEENT Surgical History: Reports: Cataract Surgery Cardiovascular Surgical History: Reports: None Respiratory Surgical History: Reports: None GI Surgical History: Reports: Hernia Repair/Other Male Surgical History: Reports: None Neurological Surgical History: Reports: None Musculoskeletal Surgical History: Reports: None Oncologic Surgical History: Reports: Other (See Below) Other Oncologic Surgeries/Procedures: skin cancer removal Dermatological Surgical History: Reports: None Social & Family History - Family History Family Medical History: Noncontributory - Tobacco Use Smoking Status *Q: Unknown Ever Smoked Second Hand Smoke Exposure: No - Caffeine Use Caffeine Use: Reports: None - Alcohol Use Days Per Week of Alcohol Use: 0 - Recreational Drug Use Recreational Drug Use: No - Living Situation & Occupation Living situation: Reports: Occupation: Retired Review of Systems - Review of Systems Review Of Systems: ROS reveals no pertinent complaints other than HPI. ED EXAM, GENERAL - Physical Exam Exam: See Below Exam Limited By: Altered Mental Status General Appearance: Alert, No Apparent Distress Ears: Hearing Loss Nose: Normal Inspection Throat/Mouth: No Airway Compromise Head: Other (Laceration above right eye, 3-23-18) Respiratory/Chest: No Respiratory Distress, Lungs Clear, Normal Breath Sounds, Chest Non-Tender. No: Respiratory Distress, Wheezing Cardiovascular: Irregularly Irregular GI/Abdominal: Normal Bowel Sounds, Soft, Non-Tender (Male) Exam: Deferred Rectal (Males) Exam: Deferred Extremities: Non-Tender Neurological: Alert, Disoriented, Slow to Respond Psychiatric: Flat Affect Skin Exam: Warm, Dry, Other (pale) Departure - Departure Time of Disposition: 17:30 Disposition: DC/Tfer to Acute Hospital 02 Condition: Fair Clinical Impression: Fracture of right femur, Elevated PSA, CHF, Congestive heart failure, Hyperglycemia Atrial fibrillation Qualifiers: Atrial fibrillation type: permanent Qualified Code(s): I48.2 - Chronic atrial fibrillation COPD (chronic obstructive pulmonary disease) Qualifiers: COPD type: COPD with acute exacerbation Qualified Code(s): J44.1 - Chronic obstructive pulmonary disease with (acute) exacerbation Chronic renal disease Qualifiers: Chronic kidney disease stage: stage 4 (severe) Qualified Code(s): N18.4 - Chronic kidney disease, stage 4 (severe) - Discharge Information Referrals: PCP,None [Primary Care Provider] - Forms: ED Department Discharge - Assessment/Plan Plan: Transfer to [place], [place] for fracture right femur and surgical repair expected tomorrow.
== END 2017-08-25 17:30 ==
LOC: LB.ED 17:01
DX: S72.91XA Unspecified fracture of right femur, initial encounter for closed fracture (principal); I50.9 Heart failure, unspecified; E78.00 Pure hypercholesterolemia, unspecified; R79.89 Other specified abnormal findings of blood chemistry; N18.4 Chronic kidney disease, stage 4 (severe); J44.1 Chronic obstructive pulmonary disease with (acute) exacerbation; I48.2 Chronic atrial fibrillation; R73.9 Hyperglycemia, unspecified; I25.2 Old myocardial infarction; E11.65 Type 2 diabetes mellitus with hyperglycemia; E03.9 Hypothyroidism, unspecified; Z79.4 Long term (current) use of insulin; E11.22 Type 2 diabetes mellitus with diabetic chronic kidney disease; W19.XXXA Unspecified fall, initial encounter; Y92.009 Unspecified place in unspecified non-institutional (private) residence as the place of occurrence of the external cause; F03.91 Unspecified dementia, unspecified severity, with behavioral disturbance; R41.82 Altered mental status, unspecified; G89.29 Other chronic pain; Z91.81 History of falling
CPT/HCPCS: 73502-RT; 73700-RT; 99284; A0429; A0888-GY

== ENCOUNTER 2017-08-29 12:18 | Inpatient (IN) | payer MEDICARE, BC ==
[2017-08-29] MEDS ORDERED: Insulin Aspart 100 Units/ML 3 ML Pen SUBCUT SCH ×2 (14:00→17:00)
--- NOTE | 2017-08-29 16:49 | PCM.HP ---
H&P History of Present Illness - General Date of Service: 08/29/17 Admit Problem/Dx: Admission Diagnosis/Problem Admission Diagnosis/Problem Fracture of femur Source of Information: Patient, Family, RN, Other (notes) History Limitations: Reports: Altered Mental Status - History of Present Illness Initial Comments - Free Text/Narative: 86 yr male presents for Swing bed after right hip pinning, closed reduction with percutaneous pinning of hip on 08-26-2017. Current iron defiency anemia. 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 Pt states no pain today. is w pt. Pt is alert and responds appropriately, but slowly. History is significant for CAD, GERD, Hypertension, myocardial infarction, seizures, sleep apnea, thyroid disease, Diabetes mellitus Type 2, diabetic retinopathy, forgetfulness, Cataract surgery 2013. Pt was started on coumadin and last INR today was 3.9 and orders for holding Coumadin 08-29-17, 08-30-09, and 08-31-17 and recheck PT/INR 09-01-2017. - Related Data Allergies/Adverse Reactions: Allergies Allergy/AdvReac Type Severity Reaction Status Date / Time No Known Allergies Allergy Verified 07/29/17 03:10 Home Medications: Home Meds Multivitamin [Multi-Vitamin Daily] 1 tab PO DAILY 08/10/14 [History] Ranitidine HCl 150 mg PO BEDTIME 08/10/14 [History] levETIRAcetam [Keppra] 750 mg PO BID tablet 10/03/14 [Rx] Cholecalciferol (Vitamin D3) [Vitamin D3] 2,000 unit PO DAILY cap 11/04/14 [Rx] Aspirin [[place] Aspirin] 81 mg PO DAILY 10/07/16 [History] Digoxin 125 mcg PO DAILY 10/07/16 [History] Arformoterol [Brovana] 1 inh INH BID 07/14/17 [History] Budesonide [Pulmicort] 0.5 mg IH BID 07/14/17 [History] Furosemide 40 mg PO DAILY 07/14/17 [History] Ipratropium/Albuterol Sulfate [Iprat-Albut 0.5-3(2.5) mg/3 ml] 3 ml IH DAILY PRN 07/14/17 [History] Potassium Chloride [Klor-Con 10] 1 tab PO DAILY 07/14/17 [History] Acetaminophen [Tylenol] 325 mg PO Q4H PRN tablet 07/17/17 [Rx] QUEtiapine [SEROquel] 25 mg PO BEDTIME tablet 07/17/17 [Rx] Calcium Carbonate 600 mg PO BIDMEALS tablet 07/25/17 [Rx] Levothyroxine 25 mcg PO ACBREAKFAST tablet 08/05/17 [Rx] Insulin Aspart [NovoLOG] 0 unit SUBCUT WITHMEALSANDBED 08/29/17 [History] Tamsulosin [Flomax] 0.4 mg PO DAILY 08/29/17 [History] Past Medical History HEENT History: Reports: Cataract, Hard of Hearing Cardiovascular History: Reports: Afib, CAD, Heart Failure, High Cholesterol, [place] Respiratory History: Reports: Pneumonia, Recurrent Gastrointestinal History: Reports: Other (See Below) Other Gastrointestinal History: Frequent bowel movements Genitourinary History: Reports: Acute Renal Failure, Renal Disease, UTI, Recurrent Musculoskeletal History: Reports: Back Pain, Chronic Neurological History: Reports: Seizure Other Neuro History: hx of seizures likely related to head injuries when he was younger Psychiatric History: Reports: Dementia, Other (See Below) Other Psychiatric History: worsening dementia Endocrine/Metabolic History: Reports: Diabetes, Type II, Hypothyroidism Hematologic History: Reports: Anemia Oncologic (Cancer) History: Reports: Other (See Below) Other Oncologic History: Facial Melanoma Dermatologic History: Reports: Other (See Below) Other Dermatologic History: large lump to rt side of face. frequent skin cancers - Infectious Disease History Infectious Disease History: Reports: Chicken Pox - Past Surgical History HEENT Surgical History: Reports: Cataract Surgery Cardiovascular Surgical History: Reports: None Respiratory Surgical History: Reports: None GI Surgical History: Reports: Hernia Repair/Other Male Surgical History: Reports: None Neurological Surgical History: Reports: None Musculoskeletal Surgical History: Reports: None Oncologic Surgical History: Reports: Other (See Below) Other Oncologic Surgeries/Procedures: skin cancer removal Dermatological Surgical History: Reports: None Social & Family History - Family History Family Medical History: Noncontributory - Tobacco Use Smoking Status *Q: Unknown Ever Smoked Second Hand Smoke Exposure: No - Caffeine Use Caffeine Use: Reports: None - Alcohol Use Days Per Week of Alcohol Use: 0 - Recreational Drug Use Recreational Drug Use: No - Living Situation & Occupation Living situation: Reports: Occupation: Retired H&P Review of Systems - Review of Systems: Review Of Systems: ROS reveals no pertinent complaints other than HPI. Exam - Exam Exam: See Below - Vital Signs Weight: 134 lb 7.712 oz - Exam Quality Assessment: Urinary Catheter General: Alert, Cooperative HEENT: Conjunctiva Clear, Hearing Intact, Mucosa Moist & [place] Neck: Supple, Trachea Midline Lungs: Clear to Auscultation, Normal Respiratory Effort Cardiovascular: Regular Rate, Regular Rhythm, Other (digoxin for CHF) GI/Abdominal Exam: Normal Bowel Sounds, Soft, Non-Tender Extremities: Non-Tender, No Pedal Edema, Normal Capillary Refill, Other ( Ambulated with PT and states no pain to hip) Peripheral Pulses: 2+: Dorsalis Pedis (L), Dorsalis Pedis (R) Skin: Warm, Dry, Ecchymosis (to side of left eye, suture intact to eyebrow, will remove on Friday), Other (Dressing is clean, dry and intact to right hip.) Neurological: Normal Speech (slow to respond) Neuro Extensive - Mental Status: Alert, Normal Mood/Affect, Slow Response to Commands Neuro Extensive - Motor, Sensory, Reflexes: Abnormal Gait Psychiatric: Normal Affect, Normal Mood - Problem List (1) History of fracture of femur SNOMED Code(s): 834382003 ICD Code: Z87.81 - PERSONAL HISTORY OF (HEALED) TRAUMATIC FRACTURE Status: Acute Current Visit: Yes Onset Date: ~08/26/17 (2) CAD (coronary artery disease) SNOMED Code(s): 29030761 ICD Code: I25.10 - ATHSCL HEART DISEASE OF [place] CORONARY ARTERY W/O ANG PCTRS Status: Acute Current Visit: Yes (3) COPD (chronic obstructive pulmonary disease) SNOMED Code(s): 74817039 ICD Code: J44.9 - CHRONIC OBSTRUCTIVE PULMONARY DISEASE, UNSPECIFIED Status : Chronic Current Visit: No Qualifiers: Qualified Code(s): J44.1 - Chronic obstructive pulmonary disease with (acute ) exacerbation (4) Diabetes type 2, controlled SNOMED Code(s): 95570266 ICD Code: E11.9 - TYPE 2 DIABETES MELLITUS WITHOUT COMPLICATIONS Status: Acute Current Visit: Yes (5) Seizure disorder SNOMED Code(s): 110514264 ICD Code: G40.909 - EPILEPSY, UNSP, NOT INTRACTABLE, WITHOUT STATUS EPILEPTICUS Status: Chronic Priority: Medium Current Visit: No Onset Date: 10/27/15 (6) Thyroid disorder SNOMED Code(s): 18093005 ICD Code: E07.9 - DISORDER OF THYROID, UNSPECIFIED Status: Acute Current Visit: Yes Problem List Initiated/Reviewed/Updated: Yes Orders Last 24hrs: Active Orders 24 hr Category Date Time Status Patient Status [ADT] Routine ADT 08/29/17 14:48 Active Blood Glucose Check, Bedside [RC] QIDACANDBED Care 08/29/17 14:47 Active Oxygen Therapy [RC] PRN Care 08/29/17 14:48 Active VTE/DVT Education [RC] Per Unit Routine Care 08/29/17 14:48 Active Vital Signs [RC] PER UNIT ROUTINE Care 08/29/17 14:48 Active OT Evaluation and Treatment [CONS] Routine Cons 08/29/17 14:47 Active PT Evaluation and Treatment [CONS] Routine Cons 08/29/17 14:47 Active Consistent Carbohydrate Diet [DIET] Diet 08/29/17 Dinner Ordered CBC WITH AUTO DIFF [HEME] Routine Lab 09/01/17 07:30 Ordered CULTURE MRSA SURVEY [RM] Routine Lab 08/29/17 14:53 Ordered INR,PT,PROTHROMBIN TIME [COAG] Routine Lab 09/01/17 07:30 Ordered Acetaminophen [Tylenol] Med 08/29/17 13:38 Active 325 mg PO Q4H PRN Albuterol/Ipratropium [DuoNeb 3.0-0.5 MG/3 ML] Med 08/30/17 08:00 Active 3 ml INH DAILY Arformoterol [Brovana] Med 08/29/17 20:00 Active 15 mcg INH BID Aspirin [Halfprin] Med 08/30/17 08:00 Hold 81 mg PO DAILY Budesonide [Pulmicort] Med 08/29/17 20:00 Active 0.5 mg INH BID Calcium Carbonate Med 08/29/17 20:00 Active 600 mg PO BID Cholecalciferol (Vitamin D3) [Vitamin D3] Med 08/30/17 08:00 Active 2,000 unit PO DAILY Digoxin [Lanoxin] Med 08/30/17 08:00 Active 125 mcg PO DAILY Furosemide [Lasix] Med 08/30/17 08:00 Active 40 mg PO DAILY Insulin Aspart [NovoLOG] Med 08/29/17 17:00 Active 1 - 5 unit SUBCUT TIDAC Levothyroxine Med 08/30/17 07:00 Active 25 mcg PO ACBREAKFAST Potassium Chloride [Klor-Con 10] Med 08/30/17 08:00 Active 10 meq PO DAILY QUEtiapine [SEROquel] Med 08/29/17 20:00 Active 25 mg PO BEDTIME Ranitidine [Zantac] Med 08/29/17 20:00 Active 150 mg PO BEDTIME Warfarin [Coumadin] Med 08/29/17 18:00 Hold 1 mg PO DAILY@1800 diphenhydrAMINE [Benadryl] Med 08/29/17 13:46 Active 25 mg PO BEDTIME PRN levETIRAcetam [Keppra] Med 08/29/17 20:00 Active 750 mg PO BID Sequential Compression Device [OM.PC] Routine Oth 08/29/17 14:59 Ordered Resuscitation Status Routine Resus Stat 08/29/17 14:47 Ordered Medication Orders Acetaminophen (Tylenol) 325 mg PO Q4H PRN PRN Reason: MODERATE PAIN OR HEADACHE Albuterol/Ipratropium (Duoneb 3.0-0.5 Mg/3 Ml) 3 ml INH DAILY [facility] Arformoterol Tartrate (Brovana) 15 mcg INH BID [facility] Aspirin (Halfprin) 81 mg PO DAILY [facility] Budesonide (Pulmicort) 0.5 mg INH BID [facility] Calcium Carbonate/Glycine (Calcium Carbonate) 600 mg PO BID [facility] Cholecalciferol (Vitamin D3) 2,000 unit PO DAILY [facility] Digoxin (Lanoxin) 125 mcg PO DAILY [facility] Diphenhydramine HCl (Benadryl) 25 mg PO BEDTIME PRN PRN Reason: INSOMNIA Furosemide (Lasix) 40 mg PO DAILY [facility] Insulin Aspart (Novolog) 1 - 5 unit SUBCUT TIDAC [facility]; Protocol Levetiracetam (Keppra) 750 mg PO BID [facility] Levothyroxine Sodium (Levothyroxine) 25 mcg PO ACBREAKFAST [facility] Potassium Chloride (Klor-Con 10) 10 meq PO DAILY [facility] Quetiapine Fumarate (Seroquel) 25 mg PO BEDTIME [facility] Ranitidine HCl (Zantac) 150 mg PO BEDTIME [facility] Warfarin Sodium (Coumadin) 1 mg PO DAILY@1800 [facility] Assessment/Plan Comment:: 86 yr male admit to SWING bed post right hip pinning after right femur fracture. PT/OT for strengthening and exercise. Plan to discharge to home in retirement care facility in 1-2 weeks. History of right hip fracture w pinning 08-26-17: PT/OT consult PT/OT for strengthening and exercise. DVT precautions. coumadin therapy. coumadin on hold today, 08-30 and 08-31-17. Last INR was 3.9 today. PT/INR 09-01-17. ARMAND maloney. Pt up with assist of one. Tramdol, Tylenol or Oxycodone as orderd for pain as needed Miralax and senokot as ordered. CMP 09-01-17 Ortho follow-up as scheduled for dressing change and suture removal. Iron deficiency anemia: CBC w diff 09-01-17 Coronary artery disease: Digoxin Lasix Diabetes Mellitus Type 2: Accu check ac and hs. Insulin/novolog tid meals and hs. GERD: Pantoprazole Zantac COPD: duoneb perforomist pulmicort Incruse ellipta Siezure disorder: Keppra Thyroid disorder: levothyroxine TSH 09-01-17 Laceration above right eye: Suture removal 09-01-17.
[2017-08-29] MEDS: Acetaminophen 325 MG Tab PO PRN (20:17)
[2017-08-29] MEDS: diphenhydrAMINE 25 MG Cap PO PRN (20:19)
[2017-08-29] MEDS: Calcium Carbonate 600 MG Tab PO SCH (20:19)
[2017-08-29] MEDS: levETIRAcetam 500 MG Tab PO SCH (20:20)
[2017-08-29] MEDS: Budesonide 0.5 MG/2 ML Neb Susp INH SCH (20:21)
[2017-08-29] MEDS: QUEtiapine 25 MG Tab PO SCH (20:21)
[2017-08-29] MEDS: Arformoterol 15 MCG/2 ML Neb Soln INH SCH (20:38)
[2017-08-30] MEDS: Levothyroxine 25 MCG Tab PO SCH (06:10)
[2017-08-30] MEDS: Calcium Carbonate 600 MG Tab PO SCH ×2 (07:36→19:12)
[2017-08-30] MEDS: levETIRAcetam 500 MG Tab PO SCH ×2 (07:37→19:13)
[2017-08-30] MEDS: Furosemide 40 MG Tab PO SCH (07:39)
[2017-08-30] MEDS: Cholecalciferol (Vitamin D3) 2,000 Unit Cap PO SCH (07:39)
[2017-08-30] MEDS: Potassium Chloride 10 MEQ Tab.ER PO SCH (07:39)
[2017-08-30] MEDS: Acetaminophen 325 MG Tab PO PRN ×2 (07:40→18:01)
[2017-08-30] MEDS: Arformoterol 15 MCG/2 ML Neb Soln INH SCH ×2 (07:41→19:42)
[2017-08-30] MEDS: Albuterol/Ipratropium 3.0-0.5 MG/3 ML Neb Soln INH SCH (07:41)
[2017-08-30] MEDS: Budesonide 0.5 MG/2 ML Neb Susp INH SCH ×2 (07:42→19:20)
[2017-08-30] MEDS: Digoxin 125 MCG Tab PO SCH (07:44)
[2017-08-30] MEDS: Insulin Aspart 100 Units/ML 3 ML Pen SUBCUT SCH ×3 (07:55→17:55)
[2017-08-30] MEDS ORDERED: Aspirin 81 MG Tab.EC PO SCH (08:00)
[2017-08-30] MEDS: Tuberculin, PPD 5 Units/0.1 ML 1 ML MDV IDERM ONE ×3 (12:27→18:59)
[2017-08-30] MEDS: traMADol 50 MG Tab PO PRN (16:23)
[2017-08-30] MEDS: QUEtiapine 25 MG Tab PO SCH (19:12)
[2017-08-30] MEDS: diphenhydrAMINE 25 MG Cap PO PRN (19:13)
[2017-08-31] MEDS: Levothyroxine 25 MCG Tab PO SCH (06:22)
[2017-08-31] MEDS: levETIRAcetam 500 MG Tab PO SCH ×2 (07:41→19:23)
[2017-08-31] MEDS: Cholecalciferol (Vitamin D3) 2,000 Unit Cap PO SCH (07:41)
[2017-08-31] MEDS: Calcium Carbonate 600 MG Tab PO SCH ×2 (07:41→19:24)
[2017-08-31] MEDS: Furosemide 40 MG Tab PO SCH (07:42)
[2017-08-31] MEDS: Potassium Chloride 10 MEQ Tab.ER PO SCH (07:42)
[2017-08-31] MEDS: Digoxin 125 MCG Tab PO SCH (07:42)
[2017-08-31] MEDS: Insulin Aspart 100 Units/ML 3 ML Pen SUBCUT SCH ×3 (07:45→17:05)
[2017-08-31] MEDS: Arformoterol 15 MCG/2 ML Neb Soln INH SCH ×2 (07:46→19:40)
[2017-08-31] MEDS: Albuterol/Ipratropium 3.0-0.5 MG/3 ML Neb Soln INH SCH (07:46)
[2017-08-31] MEDS: Budesonide 0.5 MG/2 ML Neb Susp INH SCH ×2 (07:47→19:25)
[2017-08-31] MEDS: traMADol 50 MG Tab PO PRN (19:24)
[2017-08-31] MEDS: QUEtiapine 25 MG Tab PO SCH (19:25)
[2017-08-31] MEDS: diphenhydrAMINE 25 MG Cap PO PRN (19:28)
[2017-09-01] MEDS: Acetaminophen 325 MG Tab PO PRN ×2 (06:24→19:42)
[2017-09-01] MEDS: Levothyroxine 25 MCG Tab PO SCH (06:24)
[2017-09-01] MEDS: Furosemide 40 MG Tab PO SCH (08:14)
[2017-09-01] MEDS: Potassium Chloride 10 MEQ Tab.ER PO SCH (08:14)
[2017-09-01] MEDS: Calcium Carbonate 600 MG Tab PO SCH ×2 (08:14→19:42)
[2017-09-01] MEDS: Digoxin 125 MCG Tab PO SCH (08:14)
[2017-09-01] MEDS: Cholecalciferol (Vitamin D3) 2,000 Unit Cap PO SCH (08:14)
[2017-09-01] MEDS: levETIRAcetam 500 MG Tab PO SCH ×2 (08:14→19:41)
[2017-09-01] MEDS: Insulin Aspart 100 Units/ML 3 ML Pen SUBCUT SCH ×4 (08:15→20:04)
[2017-09-01] MEDS: traMADol 50 MG Tab PO PRN (08:48)
[2017-09-01] MEDS: Budesonide 0.5 MG/2 ML Neb Susp INH SCH ×2 (08:51→19:57)
[2017-09-01] MEDS: Arformoterol 15 MCG/2 ML Neb Soln INH SCH ×2 (08:51→19:55)
[2017-09-01] MEDS: Albuterol/Ipratropium 3.0-0.5 MG/3 ML Neb Soln INH SCH (08:51)
--- NOTE | 2017-09-01 12:01 | PCM.PN ---
- General Info Date of Service: 09/01/17 Admission Dx/Problem (Free Text): Admission Diagnosis/Problem Admission Diagnosis/Problem Fracture of femur Subjective Update: Pt responds no, when asked if having any pain. Nurse reports good BM and notes blood sugars have been elevated. Functional Status: Reports: Pain Controlled, Tolerating Diet, Ambulating - Review of Systems General: Reports: No Symptoms HEENT: Reports: No Symptoms Pulmonary: Reports: No Symptoms Cardiovascular: Reports: No Symptoms Gastrointestinal: Reports: No Symptoms Musculoskeletal: Reports: No Symptoms Skin: Reports: No Symptoms Neurological: Reports: Other (Few words, but does respond appropriately) - Patient Data Vitals - Most Recent: Last Vital Signs Temp 98.4 F 09/01/17 07:50 Pulse 62 09/01/17 08:14 Resp 18 09/01/17 07:50 BP 156/68 H 09/01/17 07:50 Pulse Ox 100 09/01/17 07:50 Weight - Most Recent: 136 lb 2 oz I&O - Last 24 Hours: Intake & Output 08/31/17 09/01/17 09/01/17 22:59 06:59 14:59 Intake Total 520 100 360 Output Total 700 575 Balance -180 -475 360 Lab Results Last 24 Hours: Laboratory Results - last 24 hr 08/31/17 08/31/17 09/01/17 Range/Units 15:18 18:58 06:24 WBC (4.0-11.0) K/uL RBC (4.50-6.50) M/uL Hgb (13.0-18.0) g/dL Hct (40.0-54.0) % MCV (76-96) fL MCH (27.0-32.0) pg MCHC (31.0-35.0) g/dL RDW (11.0-16.0) % Plt Count (150-400) K/uL MPV (6.0-10.0) fL Neut % (Auto) (45.0-70.0) % Lymph % (Auto) (20.0-40.0) % [place] % (Auto) (3.0-10.0) % Eos % (Auto) (1.0-5.0) % Baso % (Auto) (0.0-0.5) % Neut # (Auto) (2.00-7.50) K/uL Lymph # (Auto) (1.50-4.00) K/uL [place] # (Auto) (0.20-0.80) K/uL Eos # (Auto) (0.04-0.40) K/uL Baso # (Auto) (0.02-0.10) K/uL PT (9.0-11.5) sec INR (1.0-3.5) Sodium (136-145) mmol/L Potassium (3.5-5.1) mmol/L Chloride (98-107) mmol/L Carbon Dioxide (21.0-32.0) mmol/L Anion Gap (5.0-15.0) mmol/L BUN (8-26) mg/dL Creatinine (0.70-1.30) mg/dL Est Cr Clr Drug Dosing mL/min Estimated GFR (MDRD) (>60) MLS/MIN BUN/Creatinine Ratio (6-25) Glucose (74-100) mg/dL POC Glucose 290 H 199 H 152 H (74-110) mg/dL Calcium (8.5-10.1) mg/dL TSH, Ultra Sensitive (0.358-3.740) uIU/mL 09/01/17 09/01/17 09/01/17 Range/Units 07:30 07:35 07:35 WBC 6.7 (4.0-11.0) K/uL RBC 2.99 L (4.50-6.50) M/uL Hgb 9.7 L (13.0-18.0) g/dL Hct 30.1 L (40.0-54.0) % MCV 101 H (76-96) fL MCH 32.4 H (27.0-32.0) pg MCHC 32.2 (31.0-35.0) g/dL RDW 12.7 (11.0-16.0) % Plt Count 225 D (150-400) K/uL MPV 9.7 (6.0-10.0) fL Neut % (Auto) 79.0 H (45.0-70.0) % Lymph % (Auto) 8.3 L (20.0-40.0) % [place] % (Auto) 8.3 (3.0-10.0) % Eos % (Auto) 3.7 (1.0-5.0) % Baso % (Auto) 0.7 H (0.0-0.5) % Neut # (Auto) 5.32 (2.00-7.50) K/uL Lymph # (Auto) 0.56 L (1.50-4.00) K/uL [place] # (Auto) 0.56 (0.20-0.80) K/uL Eos # (Auto) 0.25 (0.04-0.40) K/uL Baso # (Auto) 0.05 (0.02-0.10) K/uL PT 15.7 H D (9.0-11.5) sec INR 1.6 D (1.0-3.5) Sodium 147 H (136-145) mmol/L Potassium 4.2 (3.5-5.1) mmol/L Chloride 107 (98-107) mmol/L Carbon Dioxide 31.8 (21.0-32.0) mmol/L Anion Gap 12.4 (5.0-15.0) mmol/L BUN 23 (8-26) mg/dL Creatinine 1.98 H (0.70-1.30) mg/dL Est Cr Clr Drug Dosing 23.73 mL/min Estimated GFR (MDRD) 32 L (>60) MLS/MIN BUN/Creatinine Ratio 11.6 (6-25) Glucose 176 H D (74-100) mg/dL POC Glucose (74-110) mg/dL Calcium 8.0 L (8.5-10.1) mg/dL TSH, Ultra Sensitive 2.029 D (0.358-3.740) uIU/mL 09/01/17 Range/Units 10:22 WBC (4.0-11.0) K/uL RBC (4.50-6.50) M/uL Hgb (13.0-18.0) g/dL Hct (40.0-54.0) % MCV (76-96) fL MCH (27.0-32.0) pg MCHC (31.0-35.0) g/dL RDW (11.0-16.0) % Plt Count (150-400) K/uL MPV (6.0-10.0) fL Neut % (Auto) (45.0-70.0) % Lymph % (Auto) (20.0-40.0) % [place] % (Auto) (3.0-10.0) % Eos % (Auto) (1.0-5.0) % Baso % (Auto) (0.0-0.5) % Neut # (Auto) (2.00-7.50) K/uL Lymph # (Auto) (1.50-4.00) K/uL [place] # (Auto) (0.20-0.80) K/uL Eos # (Auto) (0.04-0.40) K/uL Baso # (Auto) (0.02-0.10) K/uL PT (9.0-11.5) sec INR (1.0-3.5) Sodium (136-145) mmol/L Potassium (3.5-5.1) mmol/L Chloride (98-107) mmol/L Carbon Dioxide (21.0-32.0) mmol/L Anion Gap (5.0-15.0) mmol/L BUN (8-26) mg/dL Creatinine (0.70-1.30) mg/dL Est Cr Clr Drug Dosing mL/min Estimated GFR (MDRD) (>60) MLS/MIN BUN/Creatinine Ratio (6-25) Glucose (74-100) mg/dL POC Glucose 277 H (74-110) mg/dL Calcium (8.5-10.1) mg/dL TSH, Ultra Sensitive (0.358-3.740) uIU/mL Med Orders - Current: Current Medications Acetaminophen (Tylenol) 325 mg PO Q4H PRN PRN Reason: MODERATE PAIN OR HEADACHE Last Admin: 09/01/17 06:24 Dose: 325 mg Albuterol/Ipratropium (Duoneb 3.0-0.5 Mg/3 Ml) 3 ml INH DAILY [facility] Last Admin: 09/01/17 08:51 Dose: 3 ml Arformoterol Tartrate (Brovana) 15 mcg INH BID [facility] Last Admin: 09/01/17 08:51 Dose: 15 mcg Aspirin (Halfprin) 81 mg PO DAILY [facility] Budesonide (Pulmicort) 0.5 mg INH BID [facility] Last Admin: 09/01/17 08:51 Dose: 0.5 mg Calcium Carbonate/Glycine (Calcium Carbonate) 600 mg PO BID [facility] Last Admin: 09/01/17 08:14 Dose: 600 mg Cholecalciferol (Vitamin D3) 2,000 unit PO DAILY [facility] Last Admin: 09/01/17 08:14 Dose: 2,000 unit Digoxin (Lanoxin) 125 mcg PO DAILY [facility] Last Admin: 09/01/17 08:14 Dose: 125 mcg Diphenhydramine HCl (Benadryl) 25 mg PO BEDTIME PRN PRN Reason: INSOMNIA Last Admin: 08/31/17 19:28 Dose: 25 mg Furosemide (Lasix) 40 mg PO DAILY [facility] Last Admin: 09/01/17 08:14 Dose: 40 mg Insulin Aspart (Novolog) 0 unit SUBCUT QIDACANDBED [facility]; Protocol Levetiracetam (Keppra) 750 mg PO BID [facility] Last Admin: 09/01/17 08:14 Dose: 750 mg Levothyroxine Sodium (Levothyroxine) 25 mcg PO ACBREAKFAST [facility] Last Admin: 09/01/17 06:24 Dose: 25 mcg Potassium Chloride (Klor-Con 10) 10 meq PO DAILY [facility] Last Admin: 09/01/17 08:14 Dose: 10 meq Quetiapine Fumarate (Seroquel) 25 mg PO BEDTIME [facility] Last Admin: 08/31/17 19:25 Dose: 25 mg Ranitidine HCl (Zantac) 150 mg PO BEDTIME [facility] Last Admin: 08/31/17 19:24 Dose: 150 mg Tramadol HCl (Ultram) 25 mg PO Q6H PRN PRN Reason: Pain Last Admin: 09/01/17 08:48 Dose: 25 mg Warfarin Sodium (Coumadin) 1 mg PO DAILY@1800 [facility] Warfarin Sodium (Coumadin) 2 mg PO DAILY@1800 [facility] Discontinued Medications Insulin Aspart (Novolog) 1 - 5 unit SUBCUT TID [facility]; Protocol Last Admin: 08/29/17 14:32 Dose: Not Given Insulin Aspart (Novolog) 1 - 5 unit SUBCUT TIDAC [facility]; Protocol Last Admin: 08/29/17 19:15 Dose: Not Given Insulin Aspart (Novolog) 1 - 5 unit SUBCUT TID@0800,1200,1700 [facility]; Protocol Last Admin: 09/01/17 08:15 Dose: 1 units Tuberculin PPD (Aplisol) 5 unit IDERM ONETIME ONE Stop: 08/29/17 14:58 Last Admin: 08/30/17 18:59 Dose: Not Given - Exam Quality Assessment: Urine Catheter General: Alert, Cooperative, No Acute Distress HEENT: Mucous Membr. Moist/[place] Neck: Supple, Trachea Midline Lungs: Clear to Auscultation, Normal Respiratory Effort Cardiovascular: Regular Rate, Regular Rhythm GI/Abdominal Exam: Normal Bowel Sounds, Soft, Non-Tender Extremities: Non-Tender, No Pedal Edema, Other (right leg turns outward, when in bed) Skin: Warm, Dry, Other (Dressing is intact, clean and dry) Wound/Incisions: Dressing Dry and Intact Neurological: No New Focal Deficit Psy/Mental Status: Normal Affect, Normal Mood - Problem List & Annotations (1) History of fracture of femur SNOMED Code(s): 864208487 Code(s): Z87.81 - PERSONAL HISTORY OF (HEALED) TRAUMATIC FRACTURE Status: Acute Current Visit: Yes Onset Date: ~08/26/17 (2) CAD (coronary artery disease) SNOMED Code(s): 35653297 Code(s): I25.10 - ATHSCL HEART DISEASE OF [place] CORONARY ARTERY W/O ANG PCTRS Status: Acute Current Visit: Yes (3) COPD (chronic obstructive pulmonary disease) SNOMED Code(s): 23454886 Code(s): J44.9 - CHRONIC OBSTRUCTIVE PULMONARY DISEASE, UNSPECIFIED Status : Chronic Current Visit: No Qualifiers: Qualified Code(s): J44.1 - Chronic obstructive pulmonary disease with (acute ) exacerbation (4) Diabetes type 2, controlled SNOMED Code(s): 86453982 Code(s): E11.9 - TYPE 2 DIABETES MELLITUS WITHOUT COMPLICATIONS Status: Acute Current Visit: Yes (5) Seizure disorder SNOMED Code(s): 746936754 Code(s): G40.909 - EPILEPSY, UNSP, NOT INTRACTABLE, WITHOUT STATUS EPILEPTICUS Status: Chronic Priority: Medium Current Visit: No Onset Date: 10/27/15 (6) Thyroid disorder SNOMED Code(s): 26428814 Code(s): E07.9 - DISORDER OF THYROID, UNSPECIFIED Status: Acute Current Visit: Yes - Problem List Review Problem List Initiated/Reviewed/Updated: Yes - My Orders Last 24 Hours: My Active Orders 09/01/17 11:27 Insulin Aspart [NovoLOG] See Protocol SUBCUT QIDACANDBED 09/01/17 18:00 Warfarin [Coumadin] 2 mg PO DAILY@1800 09/03/17 07:30 INR,PT,PROTHROMBIN TIME [COAG] Routine - Plan Plan:: 86 yr male admit to SWING bed post right hip pinning after right femur fracture. PT/OT for strengthening and exercise. 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 Pt had a good weekend and offers no complaints. Staff report blood sugars have been elevated and using sliding scale, low dose ac and hs. History of right hip fracture w pinning 08-26-17: PT/OT for strengthening and exercise. DVT precautions. coumadin therapy. Will adjust Coumadin 2mg PO today. INR this am 1.6 PT/INR 09-03-17. ARMAND hose. Pt up with assist of one. Bed alarms on bed to prevent falls Tramdol, Tylenol or Oxycodone as orderd for pain as needed Miralax and senokot as ordered. Ortho follow-up as scheduled for dressing change and suture removal. Iron deficiency anemia: Hgb stable 9.7 Coronary artery disease: Digoxin Lasix Diabetes Mellitus Type 2: Accu check ac and hs. Insulin/novolog tid meals and hs. Will change to medium dose protocol GERD: Pantoprazole Zantac COPD: duoneb perforomist pulmicort Incruse ellipta Siezure disorder: Keppra Thyroid disorder: levothyroxine TSH normal today, continue same dose. Laceration above right eye: Suture removal completed today without incidence. Area is clean, dry and intact.
[2017-09-01] MEDS: Warfarin 2 MG Tab PO SCH (18:15)
[2017-09-01] MEDS: diphenhydrAMINE 25 MG Cap PO PRN (19:42)
[2017-09-01] MEDS: QUEtiapine 25 MG Tab PO SCH (19:43)
[2017-09-02] MEDS: Levothyroxine 25 MCG Tab PO SCH (06:40)
[2017-09-02] MEDS: Insulin Aspart 100 Units/ML 3 ML Pen SUBCUT SCH ×4 (07:22→19:49)
[2017-09-02] MEDS: levETIRAcetam 500 MG Tab PO SCH ×2 (07:23→19:47)
[2017-09-02] MEDS: Albuterol/Ipratropium 3.0-0.5 MG/3 ML Neb Soln INH SCH (07:23)
[2017-09-02] MEDS: Potassium Chloride 10 MEQ Tab.ER PO SCH (07:23)
[2017-09-02] MEDS: Calcium Carbonate 600 MG Tab PO SCH ×2 (07:24→19:47)
[2017-09-02] MEDS: Cholecalciferol (Vitamin D3) 2,000 Unit Cap PO SCH (07:24)
[2017-09-02] MEDS: Digoxin 125 MCG Tab PO SCH (07:24)
[2017-09-02] MEDS: Arformoterol 15 MCG/2 ML Neb Soln INH SCH ×2 (07:25→19:45)
[2017-09-02] MEDS: Furosemide 40 MG Tab PO SCH (07:25)
[2017-09-02] MEDS: Budesonide 0.5 MG/2 ML Neb Susp INH SCH ×2 (07:26→19:54)
[2017-09-02] MEDS: traMADol 50 MG Tab PO PRN (08:31)
[2017-09-02] MEDS: Acetaminophen 325 MG Tab PO PRN (10:19)
[2017-09-02] MEDS: Warfarin 2 MG Tab PO SCH (17:31)
[2017-09-02] MEDS: QUEtiapine 25 MG Tab PO SCH (19:47)
[2017-09-02] MEDS: Insulin Detemir 100 Units/ML 3 ML Pen SUBCUT SCH (19:52)
[2017-09-03] MEDS: Levothyroxine 25 MCG Tab PO SCH (06:28)
[2017-09-03] MEDS: Insulin Aspart 100 Units/ML 3 ML Pen SUBCUT SCH ×5 (07:32→20:16)
[2017-09-03] MEDS: levETIRAcetam 500 MG Tab PO SCH ×2 (07:34→20:03)
[2017-09-03] MEDS: Digoxin 125 MCG Tab PO SCH (07:34)
[2017-09-03] MEDS: Calcium Carbonate 600 MG Tab PO SCH ×2 (07:34→20:01)
[2017-09-03] MEDS: Furosemide 40 MG Tab PO SCH (07:34)
[2017-09-03] MEDS: Potassium Chloride 10 MEQ Tab.ER PO SCH (07:34)
[2017-09-03] MEDS: Cholecalciferol (Vitamin D3) 2,000 Unit Cap PO SCH (07:34)
[2017-09-03] MEDS: Insulin Detemir 100 Units/ML 3 ML Pen SUBCUT SCH ×2 (07:35→20:15)
[2017-09-03] MEDS: Arformoterol 15 MCG/2 ML Neb Soln INH SCH ×2 (08:40→20:27)
[2017-09-03] MEDS: Albuterol/Ipratropium 3.0-0.5 MG/3 ML Neb Soln INH SCH (08:55)
[2017-09-03] MEDS: Budesonide 0.5 MG/2 ML Neb Susp INH SCH ×2 (09:10→20:19)
[2017-09-03] MEDS: Acetaminophen 325 MG Tab PO PRN ×2 (09:23→20:02)
[2017-09-03] MEDS: traMADol 50 MG Tab PO PRN (12:16)
[2017-09-03] MEDS: Warfarin 2 MG Tab PO SCH (18:57)
[2017-09-03] MEDS: diphenhydrAMINE 25 MG Cap PO PRN (20:01)
[2017-09-03] MEDS: QUEtiapine 25 MG Tab PO SCH (20:01)
[2017-09-04] MEDS: Levothyroxine 25 MCG Tab PO SCH (06:34)
[2017-09-04] MEDS: Digoxin 125 MCG Tab PO SCH (07:41)
[2017-09-04] MEDS: Furosemide 40 MG Tab PO SCH (07:41)
[2017-09-04] MEDS: Potassium Chloride 10 MEQ Tab.ER PO SCH (07:41)
[2017-09-04] MEDS: Calcium Carbonate 600 MG Tab PO SCH ×2 (07:42→20:25)
[2017-09-04] MEDS: Acetaminophen 325 MG Tab PO PRN (07:42)
[2017-09-04] MEDS: Cholecalciferol (Vitamin D3) 2,000 Unit Cap PO SCH (07:42)
[2017-09-04] MEDS: levETIRAcetam 500 MG Tab PO SCH ×2 (07:43→20:25)
[2017-09-04] MEDS: Albuterol/Ipratropium 3.0-0.5 MG/3 ML Neb Soln INH SCH (07:45)
[2017-09-04] MEDS: Budesonide 0.5 MG/2 ML Neb Susp INH SCH ×2 (07:45→20:26)
[2017-09-04] MEDS: Arformoterol 15 MCG/2 ML Neb Soln INH SCH ×2 (07:45→20:23)
[2017-09-04] MEDS: Insulin Aspart 100 Units/ML 3 ML Pen SUBCUT SCH ×4 (08:06→20:38)
[2017-09-04] MEDS: Insulin Detemir 100 Units/ML 3 ML Pen SUBCUT SCH ×2 (08:30→20:34)
[2017-09-04] MEDS: Warfarin 2 MG Tab PO SCH (17:14)
[2017-09-04] MEDS: Ferrous Sulfate 325 MG Tab PO SCH (17:14)
[2017-09-04] MEDS: QUEtiapine 25 MG Tab PO SCH (20:26)
[2017-09-05] MEDS ORDERED: Insulin Detemir 100 Units/ML 3 ML Pen SUBCUT SCH ×2 (08:00→20:00)
[2017-09-05] MEDS: Arformoterol 15 MCG/2 ML Neb Soln INH SCH ×2 (08:08→20:04)
[2017-09-05] MEDS: Potassium Chloride 10 MEQ Tab.ER PO SCH (08:10)
[2017-09-05] MEDS: Albuterol/Ipratropium 3.0-0.5 MG/3 ML Neb Soln INH SCH (08:10)
[2017-09-05] MEDS: Digoxin 125 MCG Tab PO SCH (08:10)
[2017-09-05] MEDS: Levothyroxine 25 MCG Tab PO SCH (08:10)
[2017-09-05] MEDS: Cholecalciferol (Vitamin D3) 2,000 Unit Cap PO SCH (08:10)
[2017-09-05] MEDS: levETIRAcetam 500 MG Tab PO SCH ×2 (08:10→20:03)
[2017-09-05] MEDS: Furosemide 40 MG Tab PO SCH (08:10)
[2017-09-05] MEDS: Calcium Carbonate 600 MG Tab PO SCH ×2 (08:10→20:04)
[2017-09-05] MEDS: Budesonide 0.5 MG/2 ML Neb Susp INH SCH ×2 (08:11→20:10)
[2017-09-05] MEDS: Insulin Aspart 100 Units/ML 3 ML Pen SUBCUT SCH ×4 (08:12→20:47)
[2017-09-05] MEDS: Insulin Detemir 100 Units/ML 3 ML Pen SUBCUT SCH ×2 (09:17→20:50)
[2017-09-05] MEDS: Tamsulosin 0.4 MG Cap.ER PO SCH (09:18)
[2017-09-05] MEDS: Ferrous Sulfate 325 MG Tab PO SCH (17:34)
[2017-09-05] MEDS: Warfarin 2 MG Tab PO SCH (17:34)
[2017-09-05] MEDS: QUEtiapine 25 MG Tab PO SCH (20:04)
[2017-09-06] MEDS: Albuterol/Ipratropium 3.0-0.5 MG/3 ML Neb Soln INH SCH (07:47)
[2017-09-06] MEDS: Furosemide 40 MG Tab PO SCH (07:48)
[2017-09-06] MEDS: Levothyroxine 25 MCG Tab PO SCH (07:48)
[2017-09-06] MEDS: levETIRAcetam 500 MG Tab PO SCH ×2 (07:49→20:21)
[2017-09-06] MEDS: Calcium Carbonate 600 MG Tab PO SCH ×2 (07:49→20:20)
[2017-09-06] MEDS: Cholecalciferol (Vitamin D3) 2,000 Unit Cap PO SCH (07:49)
[2017-09-06] MEDS: Potassium Chloride 10 MEQ Tab.ER PO SCH (07:49)
[2017-09-06] MEDS: Digoxin 125 MCG Tab PO SCH (07:50)
[2017-09-06] MEDS: Budesonide 0.5 MG/2 ML Neb Susp INH SCH ×2 (07:52→20:22)
[2017-09-06] MEDS: Arformoterol 15 MCG/2 ML Neb Soln INH SCH ×2 (07:52→20:51)
[2017-09-06] MEDS: Insulin Aspart 100 Units/ML 3 ML Pen SUBCUT SCH ×4 (08:40→20:41)
[2017-09-06] MEDS: Insulin Detemir 100 Units/ML 3 ML Pen SUBCUT SCH ×2 (08:41→20:40)
[2017-09-06] MEDS: Tamsulosin 0.4 MG Cap.ER PO SCH (11:15)
[2017-09-06] MEDS: Warfarin 2 MG Tab PO SCH (17:41)
[2017-09-06] MEDS: Ferrous Sulfate 325 MG Tab PO SCH (17:41)
[2017-09-06] MEDS: QUEtiapine 25 MG Tab PO SCH (20:22)
[2017-09-06] MEDS: traMADol 50 MG Tab PO PRN (20:23)
[2017-09-07] MEDS: Levothyroxine 25 MCG Tab PO SCH (06:38)
[2017-09-07] MEDS: Albuterol/Ipratropium 3.0-0.5 MG/3 ML Neb Soln INH SCH (07:19)
[2017-09-07] MEDS: Arformoterol 15 MCG/2 ML Neb Soln INH SCH ×2 (07:19→20:08)
[2017-09-07] MEDS: Furosemide 40 MG Tab PO SCH (07:20)
[2017-09-07] MEDS: Digoxin 125 MCG Tab PO SCH (07:20)
[2017-09-07] MEDS: Cholecalciferol (Vitamin D3) 2,000 Unit Cap PO SCH (07:20)
[2017-09-07] MEDS: Potassium Chloride 10 MEQ Tab.ER PO SCH (07:20)
[2017-09-07] MEDS: Calcium Carbonate 600 MG Tab PO SCH ×2 (07:20→20:07)
[2017-09-07] MEDS: levETIRAcetam 500 MG Tab PO SCH ×2 (07:22→20:07)
[2017-09-07] MEDS: Insulin Aspart 100 Units/ML 3 ML Pen SUBCUT SCH ×4 (07:23→20:15)
[2017-09-07] MEDS: Budesonide 0.5 MG/2 ML Neb Susp INH SCH ×2 (07:24→20:11)
[2017-09-07] MEDS: Insulin Detemir 100 Units/ML 3 ML Pen SUBCUT SCH ×2 (08:35→20:13)
[2017-09-07] MEDS: Tamsulosin 0.4 MG Cap.ER PO SCH (10:58)
[2017-09-07] MEDS: Ferrous Sulfate 325 MG Tab PO SCH (17:25)
[2017-09-07] MEDS: Warfarin 2 MG Tab PO SCH (17:26)
[2017-09-07] MEDS: QUEtiapine 25 MG Tab PO SCH (20:08)
[2017-09-08] MEDS: Cholecalciferol (Vitamin D3) 2,000 Unit Cap PO SCH (08:30)
[2017-09-08] MEDS: Calcium Carbonate 600 MG Tab PO SCH (08:30)
[2017-09-08] MEDS: Digoxin 125 MCG Tab PO SCH (08:30)
[2017-09-08] MEDS: Furosemide 40 MG Tab PO SCH (08:30)
[2017-09-08] MEDS: Levothyroxine 25 MCG Tab PO SCH (08:30)
[2017-09-08] MEDS: Arformoterol 15 MCG/2 ML Neb Soln INH SCH (08:31)
[2017-09-08] MEDS: Potassium Chloride 10 MEQ Tab.ER PO SCH (08:31)
[2017-09-08] MEDS: Insulin Detemir 100 Units/ML 3 ML Pen SUBCUT SCH (08:31)
[2017-09-08] MEDS: Albuterol/Ipratropium 3.0-0.5 MG/3 ML Neb Soln INH SCH (08:31)
[2017-09-08] MEDS: levETIRAcetam 500 MG Tab PO SCH (08:36)
[2017-09-08] MEDS: Insulin Aspart 100 Units/ML 3 ML Pen SUBCUT SCH ×2 (09:08→12:10)
[2017-09-08] MEDS: Budesonide 0.5 MG/2 ML Neb Susp INH SCH (09:09)
[2017-09-08] MEDS: Tamsulosin 0.4 MG Cap.ER PO SCH (11:14)
[2017-09-08 12:16] VITALS: BP 112/51
--- NOTE | 2017-09-08 14:44 | PCM.DCSUM1 ---
Discharge Summary - Hospital Course HPI Initial Comments: 86 yr male presents post hip pinning. Pt has tolerated activity well and had PT /OT for a few days with good results and improvement of ambulation. Some confusion at times and bed alarms have been used. Diabetes Mellitus Type 2 controlled with Levemir bid and sliding scale b/4 meals. Pt has been taking fluids and meals well, as offered. Dressing to right hip has remained CDI, with one dressing change after bathing. Ortho appointment 09-16-17 at [facility] with possible staple removal. PT/INR has been monitored and pt last INR today was 2.8 with Coumadin 2 mg PO daily. Will continue present dose and recheck PT/ INR Friday09-12-17. Pt offers minimal complaints of pain and has been taking Tramadol 1 tablet at hs prn for pain. ASA is on hold for now. Pt has urinary retention and had a gregory catheter, indwelling in. This has been d'cd and intermittent straight catheterization qid is recommended when return home to [facility]. - Discharge Data Discharge Date: 09/08/17 Discharge Disposition: Home, Self-Care 01 Condition: Stable - Discharge Diagnosis/Problem(s) (1) History of fracture of femur SNOMED Code(s): 076725146 ICD Code: Z87.81 - PERSONAL HISTORY OF (HEALED) TRAUMATIC FRACTURE Status: Acute Current Visit: Yes Onset Date: ~08/26/17 (2) CAD (coronary artery disease) SNOMED Code(s): 09426181 ICD Code: I25.10 - ATHSCL HEART DISEASE OF [place] CORONARY ARTERY W/O ANG PCTRS Status: Acute Current Visit: Yes (3) COPD (chronic obstructive pulmonary disease) SNOMED Code(s): 69052498 ICD Code: J44.9 - CHRONIC OBSTRUCTIVE PULMONARY DISEASE, UNSPECIFIED Status : Chronic Current Visit: No Qualifiers: Qualified Code(s): J44.1 - Chronic obstructive pulmonary disease with (acute ) exacerbation (4) Diabetes type 2, controlled SNOMED Code(s): 22659434 ICD Code: E11.9 - TYPE 2 DIABETES MELLITUS WITHOUT COMPLICATIONS Status: Acute Current Visit: Yes (5) Seizure disorder SNOMED Code(s): 069617154 ICD Code: G40.909 - EPILEPSY, UNSP, NOT INTRACTABLE, WITHOUT STATUS EPILEPTICUS Status: Chronic Priority: Medium Current Visit: No Onset Date: 10/27/15 (6) Thyroid disorder SNOMED Code(s): 45705354 ICD Code: E07.9 - DISORDER OF THYROID, UNSPECIFIED Status: Acute Current Visit: Yes - Patient Summary/Data Consults: Consultations 08/29/17 14:47 OT Evaluation and Treatment [CONS] Routine Please Evaluate and Treat. OT Reason for Consult: Strengthening This query below is only for informational purposes and is not editable. PT Evaluation and Treatment [CONS] Routine Please Evaluate and Treat. PT Reason for Consult: Strengthening This query below is only for informational purposes and is not editable. - Patient Instructions Diet: Diabetic Diet Activity: As Tolerated (assist with ambulation and use bed alarms) Driving: Do Not Drive Showering/Bathing: May Shower Wound/Incision Care: Keep Operative Site/Wound Site Clean and Dry Notify Provider of: Fever, Increased Pain, Swelling and Redness - Discharge Plan Home Medications: Home Meds Multivitamin [Multi-Vitamin Daily] 1 tab PO DAILY 08/10/14 [History] Ranitidine HCl 150 mg PO BEDTIME 08/10/14 [History] levETIRAcetam [Keppra] 750 mg PO BID tablet 10/03/14 [Rx] Cholecalciferol (Vitamin D3) [Vitamin D3] 2,000 unit PO DAILY cap 11/04/14 [Rx] Aspirin [[place] Aspirin] 81 mg PO DAILY 10/07/16 [History] Digoxin 125 mcg PO DAILY 10/07/16 [History] Arformoterol [Brovana] 1 inh INH BID 07/14/17 [History] Budesonide [Pulmicort] 0.5 mg IH BID 07/14/17 [History] Furosemide 40 mg PO DAILY 07/14/17 [History] Ipratropium/Albuterol Sulfate [Iprat-Albut 0.5-3(2.5) mg/3 ml] 3 ml IH DAILY PRN 07/14/17 [History] Potassium Chloride [Klor-Con 10] 1 tab PO DAILY 07/14/17 [History] Acetaminophen [Tylenol] 325 mg PO Q4H PRN tablet 07/17/17 [Rx] QUEtiapine [SEROquel] 25 mg PO BEDTIME tablet 07/17/17 [Rx] Calcium Carbonate 600 mg PO BIDMEALS tablet 07/25/17 [Rx] Levothyroxine 25 mcg PO ACBREAKFAST tablet 08/05/17 [Rx] Insulin Aspart [NovoLOG] 0 unit SUBCUT WITHMEALSANDBED 08/29/17 [History] Tamsulosin [Flomax] 0.4 mg PO DAILY 08/29/17 [History] Albuterol/Ipratropium [DuoNeb 3.0-0.5 MG/3 ML] 3 ml INH DAILY 09/08/17 [History] Ferrous Sulfate 325 mg PO DAILY@1700 09/08/17 [History] Insulin Detemir [Levemir Flextouch] 2 unit SQ QPM 09/08/17 [History] Insulin Detemir [Levemir Flextouch] 7 unit SQ QAM 09/08/17 [History] Warfarin [Coumadin] 2 mg PO DAILY@1800 09/08/17 [History] traMADol HCl [Ultram] 25 mg PO QPM PRN 09/08/17 [History] Patient Handouts: Hip Rehabilitation After Surgery - General Info Date of Service: 09/08/17 Admission Dx/Problem (Free Text: Admission Diagnosis/Problem Admission Diagnosis/Problem Fracture of femur Functional Status: Reports: Pain Controlled, Tolerating Diet, Ambulating. Denies: Urinating - Review of Systems General: Reports: No Symptoms HEENT: Reports: No Symptoms Pulmonary: Reports: No Symptoms Cardiovascular: Reports: No Symptoms Gastrointestinal: Reports: No Symptoms Genitourinary: Reports: Other (intermittent catheter) Musculoskeletal: Reports: No Symptoms - Patient Data Vitals - Most Recent: Last Vital Signs Temp 98.0 F 09/08/17 10:00 Pulse 70 09/08/17 10:00 Resp 20 09/07/17 10:00 BP 112/51 L 09/08/17 10:00 Pulse Ox 94 L 09/08/17 10:00 Weight - Most Recent: 131 lb I&O - Last 24 hours: Intake & Output 09/07/17 09/08/17 09/08/17 22:59 06:59 14:59 Intake Total 680 150 Output Total 975 250 Balance -295 -100 Lab Results - Last 24 hrs: Laboratory Results - last 24 hr 09/07/17 09/07/17 09/08/17 Range/Units 16:16 19:12 07:06 Whole Blood INR (1.0-3.5) POC Glucose 164 H 164 H 138 H (74-110) mg/dL 09/08/17 09/08/17 Range/Units 07:35 11:02 Whole Blood INR 2.8 (1.0-3.5) POC Glucose 147 H (74-110) mg/dL Med Orders - Current: Current Medications Acetaminophen (Tylenol) 325 mg PO Q4H PRN PRN Reason: MODERATE PAIN OR HEADACHE Last Admin: 09/04/17 07:42 Dose: 325 mg Albuterol/Ipratropium (Duoneb 3.0-0.5 Mg/3 Ml) 3 ml INH DAILY [facility] Last Admin: 09/08/17 08:31 Dose: 3 ml Arformoterol Tartrate (Brovana) 15 mcg INH BID [facility] Last Admin: 09/08/17 08:31 Dose: 15 mcg Aspirin (Halfprin) 81 mg PO DAILY [facility] Budesonide (Pulmicort) 0.5 mg INH BID [facility] Last Admin: 09/08/17 09:09 Dose: 0.5 mg Calcium Carbonate/Glycine (Calcium Carbonate) 600 mg PO BID [facility] Last Admin: 09/08/17 08:30 Dose: 600 mg Cholecalciferol (Vitamin D3) 2,000 unit PO DAILY [facility] Last Admin: 09/08/17 08:30 Dose: 2,000 unit Digoxin (Lanoxin) 125 mcg PO DAILY [facility] Last Admin: 09/08/17 08:30 Dose: 125 mcg Diphenhydramine HCl (Benadryl) 25 mg PO BEDTIME PRN PRN Reason: INSOMNIA Last Admin: 09/03/17 20:01 Dose: 25 mg Ferrous Sulfate (Ferrous Sulfate) 325 mg PO DAILY@1700 [facility] Last Admin: 09/07/17 17:25 Dose: 325 mg Furosemide (Lasix) 40 mg PO DAILY [facility] Last Admin: 09/08/17 08:30 Dose: 40 mg Insulin Aspart (Novolog) 0 unit SUBCUT BEDTIME [facility]; Protocol Last Admin: 09/07/17 20:15 Dose: 2 units Insulin Aspart (Novolog) 0 unit SUBCUT TID@0800,1200,1700 [facility]; Protocol Last Admin: 09/08/17 12:10 Dose: Not Given Insulin Detemir (Levemir) 7 unit SUBCUT DAILY [facility] Last Admin: 09/08/17 08:31 Dose: 7 units Insulin Detemir (Levemir) 2 unit SUBCUT BEDTIME [facility] Last Admin: 09/07/17 20:13 Dose: 2 units Levetiracetam (Keppra) 750 mg PO BID [facility] Last Admin: 09/08/17 08:36 Dose: 750 mg Levothyroxine Sodium (Levothyroxine) 25 mcg PO ACBREAKFAST [facility] Last Admin: 09/08/17 08:30 Dose: 25 mcg Potassium Chloride (Klor-Con 10) 10 meq PO DAILY [facility] Last Admin: 09/08/17 08:31 Dose: 10 meq Quetiapine Fumarate (Seroquel) 25 mg PO BEDTIME [facility] Last Admin: 09/07/17 20:08 Dose: 25 mg Ranitidine HCl (Zantac) 150 mg PO BEDTIME [facility] Last Admin: 09/07/17 20:08 Dose: 150 mg Tamsulosin HCl (Flomax) 0.4 mg PO PCBREAKFAST [facility] Last Admin: 09/08/17 11:14 Dose: 0.4 mg Tramadol HCl (Ultram) 25 mg PO Q6H PRN PRN Reason: Pain Last Admin: 09/06/17 20:23 Dose: 25 mg Warfarin Sodium (Coumadin) 2 mg PO DAILY@1800 [facility] Last Admin: 09/07/17 17:26 Dose: 2 mg Discontinued Medications Insulin Aspart (Novolog) 1 - 5 unit SUBCUT TID [facility]; Protocol Last Admin: 08/29/17 14:32 Dose: Not Given Insulin Aspart (Novolog) 1 - 5 unit SUBCUT TIDAC [facility]; Protocol Last Admin: 08/29/17 19:15 Dose: Not Given Insulin Aspart (Novolog) 1 - 5 unit SUBCUT TID@0800,1200,1700 [facility]; Protocol Last Admin: 09/01/17 08:15 Dose: 1 units Insulin Aspart (Novolog) 0 unit SUBCUT QIDACANDBED [facility]; Protocol Last Admin: 09/03/17 20:11 Dose: 4 units Insulin Detemir (Levemir) 5 unit SUBCUT BID [facility] Last Admin: 09/04/17 08:30 Dose: 5 units Insulin Detemir (Levemir) 3 unit SUBCUT DAILY [facility] Last Admin: 09/05/17 09:17 Dose: 3 units Insulin Detemir (Levemir) 5 unit SUBCUT DAILY [facility] Last Admin: 09/05/17 09:15 Dose: 5 units Insulin Detemir (Levemir) 2 unit SUBCUT DAILY [facility] Tuberculin PPD (Aplisol) 5 unit IDERM ONETIME ONE Stop: 08/29/17 14:58 Last Admin: 08/30/17 18:59 Dose: Not Given - Exam Quality Assessment: Reports: Urine Catheter (straight catheter, intermittent, qid) General: Reports: Alert, Cooperative, No Acute Distress. Denies: Oriented ( oriented to person) HEENT: Reports: Mucous Membr. Moist/[place] Neck: Reports: Supple, Trachea Midline. Denies: Lymphadenopathy Lungs: Reports: Clear to Auscultation, Normal Respiratory Effort Cardiovascular: Reports: Regular Rate, Regular Rhythm GI/Abdominal Exam: Normal Bowel Sounds, Soft, Non-Tender (Male) Exam: Deferred Rectal (Males) Exam: Deferred Back Exam: Reports: Normal Inspection Extremities: Normal Inspection, Normal Range of Motion, Non-Tender, No Pedal Edema, Normal Capillary Refill Skin: Reports: Warm, Dry Wound/Incisions: Reports: Dressing Dry and Intact, No Drainage Neurological: Reports: No New Focal Deficit, Normal Gait, Normal Speech (slow to responds) Psy/Mental Status: Reports: Alert, Normal Affect, Normal Mood
== END 2017-09-08 14:45 | DRG 561 ==
LOC: UNDOADMIN 12:18 → LB.MS 12:18
PROVIDERS: ADMIT Nurse Practitioner Family; ATTEND Nurse Practitioner Family
DX: S72.91XD Unspecified fracture of right femur, subsequent encounter for closed fracture with routine healing (principal); Z98.890 Other specified postprocedural states; D50.9 Iron deficiency anemia, unspecified; Z66 Do not resuscitate; J44.9 Chronic obstructive pulmonary disease, unspecified; I25.10 Atherosclerotic heart disease of native coronary artery without angina pectoris; K21.9 Gastro-esophageal reflux disease without esophagitis; I10 Essential (primary) hypertension; I25.2 Old myocardial infarction; G40.909 Epilepsy, unspecified, not intractable, without status epilepticus; E11.319 Type 2 diabetes mellitus with unspecified diabetic retinopathy without macular edema; Z79.4 Long term (current) use of insulin; E03.9 Hypothyroidism, unspecified; F03.90 Unspecified dementia, unspecified severity, without behavioral disturbance, psychotic disturbance, mood disturbance, and anxiety; R33.9 Retention of urine, unspecified; Z85.828 Personal history of other malignant neoplasm of skin; Z85.820 Personal history of malignant melanoma of skin; M54.9 Dorsalgia, unspecified; G89.29 Other chronic pain; Z87.440 Personal history of urinary (tract) infections; Z87.01 Personal history of pneumonia (recurrent); H91.90 Unspecified hearing loss, unspecified ear; Z79.82 Long term (current) use of aspirin; Z79.01 Long term (current) use of anticoagulants
CPT/HCPCS: 36415; 51701; 51798; 80048; 82962; 84443; 85025; 85610; 86580; 97110-GP; 97116-GP; 97161-GP; 97165-GO; 97530-GP; A9270-GY; J7605; J7620

== ENCOUNTER 2017-10-08 21:50 | Emergency (ER) | payer MEDICARE ==
[~2017-10-08 21:50] MED LIST: Lidocaine 1% with EPINEPHrine 1:100,000 20 ML MDV ONE
--- NOTE | 2017-10-08 22:57 | EDM.PDOC ---
ED HPI GENERAL MEDICAL PROBLEM - General Chief Complaint: Laceration Stated Complaint: FALL WITH LAC Time Seen by Provider: 10/08/17 22:00 Source of Information: Reports: Other (Care center staff) History Limitations: Reports: Other (dementia) - History of Present Illness INITIAL COMMENTS - FREE TEXT/NARRATIVE: Pt is resident of [facility] center. Pt had a fall around 10 pm today and hit the back of the head on the floor. there was no loss of consciousness. pt is alert. he does not have headache. has not had nausea or vomiting. he did have some bleeding as he is on Coumadin. presently the bleeding has stopped. No blurry vision. no weakness. In the emergency room pt is alert and responds appropriately. Pt;s last tetanus was Jun 2017. Onset: Today Onset Date: 10/08/17 Onset Time: 22:00 Location: Reports: Other (occipital scalp laceration) Severity: Mild Associated Symptoms: Denies: Confusion, Diaphoresis, Fever/Chills, Headaches, Malaise, Nausea/Vomiting, Rash, Seizure, Shortness of Breath, Syncope, Weakness - Related Data Allergies Allergy/AdvReac Type Severity Reaction Status Date / Time No Known Allergies Allergy Verified 09/02/17 10:42 Home Meds: Home Meds Multivitamin [Multi-Vitamin Daily] 1 tab PO DAILY 08/10/14 [History] Ranitidine HCl 150 mg PO BEDTIME 08/10/14 [History] levETIRAcetam [Keppra] 750 mg PO BID tablet 10/03/14 [Rx] Cholecalciferol (Vitamin D3) [Vitamin D3] 2,000 unit PO DAILY cap 11/04/14 [Rx] Aspirin [[place] Aspirin] 81 mg PO DAILY 10/07/16 [History] Digoxin 125 mcg PO DAILY 10/07/16 [History] Arformoterol [Brovana] 1 inh INH BID 07/14/17 [History] Budesonide [Pulmicort] 0.5 mg IH BID 07/14/17 [History] Furosemide 40 mg PO DAILY 07/14/17 [History] Ipratropium/Albuterol Sulfate [Iprat-Albut 0.5-3(2.5) mg/3 ml] 3 ml IH DAILY PRN 07/14/17 [History] Potassium Chloride [Klor-Con 10] 1 tab PO DAILY 07/14/17 [History] Acetaminophen [Tylenol] 325 mg PO Q4H PRN tablet 07/17/17 [Rx] QUEtiapine [SEROquel] 25 mg PO BEDTIME tablet 07/17/17 [Rx] Calcium Carbonate 600 mg PO BIDMEALS tablet 07/25/17 [Rx] Levothyroxine 25 mcg PO ACBREAKFAST tablet 08/05/17 [Rx] Insulin Aspart [NovoLOG] 0 unit SUBCUT WITHMEALSANDBED 08/29/17 [History] Tamsulosin [Flomax] 0.4 mg PO DAILY 08/29/17 [History] Albuterol/Ipratropium [DuoNeb 3.0-0.5 MG/3 ML] 3 ml INH DAILY 09/08/17 [History] Ferrous Sulfate 325 mg PO DAILY@1700 09/08/17 [History] Insulin Detemir [Levemir Flextouch] 2 unit SQ QPM 09/08/17 [History] Insulin Detemir [Levemir Flextouch] 7 unit SQ QAM 09/08/17 [History] Warfarin [Coumadin] 2 mg PO DAILY@1800 09/08/17 [History] traMADol HCl [Ultram] 25 mg PO QPM PRN 09/08/17 [History] Past Medical History HEENT History: Reports: Cataract, Hard of Hearing Cardiovascular History: Reports: Afib, CAD, Heart Failure, High Cholesterol, [place] Respiratory History: Reports: Pneumonia, Recurrent Gastrointestinal History: Reports: Other (See Below) Other Gastrointestinal History: Frequent bowel movements Genitourinary History: Reports: Acute Renal Failure, Renal Disease, UTI, Recurrent Musculoskeletal History: Reports: Back Pain, Chronic Neurological History: Reports: Seizure Other Neuro History: hx of seizures likely related to head injuries when he was younger Psychiatric History: Reports: Dementia, Other (See Below) Other Psychiatric History: worsening dementia Endocrine/Metabolic History: Reports: Diabetes, Type II, Hypothyroidism Hematologic History: Reports: Anemia Oncologic (Cancer) History: Reports: Other (See Below) Other Oncologic History: Facial Melanoma Dermatologic History: Reports: Other (See Below) Other Dermatologic History: large lump to rt side of face. frequent skin cancers - Infectious Disease History Infectious Disease History: Reports: Chicken Pox - Past Surgical History HEENT Surgical History: Reports: Cataract Surgery Cardiovascular Surgical History: Reports: None Respiratory Surgical History: Reports: None GI Surgical History: Reports: Hernia Repair/Other Male Surgical History: Reports: None Neurological Surgical History: Reports: None Musculoskeletal Surgical History: Reports: None Oncologic Surgical History: Reports: Other (See Below) Other Oncologic Surgeries/Procedures: skin cancer removal Dermatological Surgical History: Reports: None Social & Family History - Family History Family Medical History: Noncontributory - Caffeine Use Caffeine Use: Reports: None - Living Situation & Occupation Living situation: Reports: Occupation: Retired ED ROS GENERAL - Review of Systems Review Of Systems: Unable To Obtain (due to dementia) ED EXAM, SKIN/RASH Exam: See Below Exam Limited By: No Limitations General Appearance: Alert, WD/WN, No Apparent Distress Eye Exam: Bilateral Eye: EOMI, PERRL Ears: Normal External Exam, Normal Canal, Hearing Grossly Normal, Normal TMs Nose: Normal Inspection, Normal Mucosa, No Blood Throat/Mouth: Normal Inspection, Normal Lips, Normal Teeth, Normal Gums, Normal Oropharynx, Normal Voice, No Airway Compromise Head: Atraumatic, Normocephalic Neck: Normal Inspection, Supple, Non-Tender, Full Range of Motion Respiratory/Chest: No Respiratory Distress, Lungs Clear, Normal Breath Sounds, No Accessory Muscle Use, Chest Non-Tender Cardiovascular: Normal Peripheral Pulses, Regular Rate, Rhythm, No Edema, No Gallop, No JVD, No Murmur, No Rub Peripheral Pulses: 2+: Radial (L), Radial (R) Extremities: Normal Inspection, Normal Range of Motion, Non-Tender, No Pedal Edema, Normal Capillary Refill Neurological: Alert, Oriented, CN II-XII Intact, No Motor/Sensory Deficits Skin: Warm, Intact, Other (scalp there is a 1.5 cm long scalp laceration over the occipital region. the wound is gapping, but not bleeding presently. Minimal tenderness to palpation. no crepitus.) ED SKIN PROCEDURES - Laceration/Wound Repair Head Lac/Wound length In cm: 1.5 Appearance: Linear Distal NVT: Neuro & Vascular Intact Anesthetic Type: Local Local Anesthesia - Lidocaine (Xylocaine): 1% with EPI Local Anesthetic Volume: 2cc Skin Prep: Providone-Iodine (Betadine) Exploration/Debridement/Repair: Wound Explored Closed with: Pako # of Sutures: 5 Sterile Dressing Applied: Provider Tetanus Status Addressed: Yes Complications: No Course - Vital Signs Text/Narrative:: Pt has a 1.5 cm linear occipital scalp laceration. Pt is up to date on tetanus. The wound is homeostatic, but gapping. hence the wound was closed under aseptic precautions with pako. Wound care discussed with care center staff. Also he does not have any signs of acute internal head injury. But advised to monitor patient for head injury for next 254 hrs and return to emergency room if it occurs. Other [place] will have staple removal in 1 wk. Departure - Departure Time of Disposition: 10:45 Disposition: DC/Tfer to [facility] Condition: Good Clinical Impression: Scalp laceration - Discharge Information - Problem List & Annotations (1) Scalp laceration SNOMED Code(s): 716785989 Code(s): S01.01XA - LACERATION WITHOUT FOREIGN BODY OF SCALP, INITIAL ENCOUNTER Status: Acute - Problem List Review Problem List Initiated/Reviewed/Updated: Yes - Assessment/Plan Assessment:: Scalp laceration s/p fall Plan: Pt has a 1.5 cm linear occipital scalp laceration. Pt is up to date on tetanus. The wound is homeostatic, but gapping. hence the wound was closed under aseptic precautions with pako. Wound care discussed with care center staff. Also he does not have any signs of acute internal head injury. But advised to monitor patient for head injury for next 254 hrs and return to emergency room if it occurs. Other [place] will have staple removal in 1 wk.
== END 2017-10-08 22:25 ==
LOC: LB.ED 21:50
DX: S01.01XA Laceration without foreign body of scalp, initial encounter (principal); I50.9 Heart failure, unspecified; E11.9 Type 2 diabetes mellitus without complications; I25.2 Old myocardial infarction; Z79.899 Other long term (current) drug therapy; Z79.82 Long term (current) use of aspirin; W18.00XA Striking against unspecified object with subsequent fall, initial encounter
CPT/HCPCS: 12001; 99282-25